=== PATIENT | male | born 1935 | race Caucasian/White ===

== ENCOUNTER 2018-09-16 21:32 | Inpatient (IN) | payer MEDICARE ==
[2018-09-16] MEDS ORDERED: ONDANSETRON 4 MG/2 ML VIAL IVP STA (22:50)
[2018-09-16] MEDS ORDERED: SODIUM CHLORIDE 0.9% 1,000 ML IV STA ×2 (22:50)
--- NOTE | 2018-09-16 22:51 | ED ---
Nausea/Vomiting/Diarrhea HPI - General Chief complaint: Nausea/Vomiting/Diarrhea Stated complaint: NVD Time Seen by Provider: 09/16/18 22:48 Source: patient, RN notes reviewed, old records reviewed Mode of arrival: wheelchair Limitations: no limitations - History of Present Illness Initial comments: This is a 3-year-old male the ER for evaluation. Patient is today with a full day of nausea vomiting and diarrhea. I'll to keep anything down throughout the day. As well as medications. Family concerned the patient is not Medications down. Patient denies any fevers no bowel pain no chest pain. MD complaint: nausea, vomiting, diarrhea -: days(s) (1) Description of Vomiting: food contents, watery Description of Diarrhea: water Associated Abdominal Pain: Yes Location: diffuse Radiation: none Severity: moderate Severity scale (1-10): 4 Quality: cramping, aching Consistency: constant Improves with: none Worsens with: eating Associated Symptoms: nausea/vomiting, weakness - Related Data Home Medications Medication Instructions Recorded Confirmed Carvedilol [Coreg] 25 mg PO BID 09/16/18 09/16/18 Dicyclomine [Bentyl] 20 mg PO QID 09/16/18 09/16/18 Furosemide [Lasix] 40 mg PO BID 09/16/18 09/16/18 Lipase/Protease/Amylase [Creon Dr 72,000 units PO ACHS 09/16/18 09/16/18 24,000 Units Capsule] Losartan [Cozaar] 25 mg PO DAILY 09/16/18 09/16/18 Multivitamins, Thera [Multivitamin 1 tab PO DAILY 09/16/18 09/16/18 (formulary)] Omeprazole [PriLOSEC] 20 mg PO DAILY 09/16/18 09/16/18 Potassium Chloride ER [K-Dur 20] 20 meq PO DAILY 09/16/18 09/16/18 Simvastatin [Zocor] 40 mg PO HS 09/16/18 09/16/18 Vit C/E/Zn/Coppr/Lutein/Zeaxan 1 cap PO BID 09/16/18 09/16/18 [Preservision Areds 2 Softgel] Warfarin [Coumadin] 2.5 mg PO MOTUWEFRSA 09/16/18 09/16/18 Warfarin [Coumadin] 2.5 mg PO SUTH 09/16/18 09/16/18 glipiZIDE XL [Glucotrol Xl] 2.5 mg PO DAILY 09/16/18 09/16/18 Previous Rx's Medication Instructions Recorded Ondansetron Odt [Zofran ODT] 4 mg PO Q8HR PRN #10 tab 09/17/18 Allergies Allergy/AdvReac Type Severity Reaction Status Date / Time CLOVER Inhibitors Allergy Unknown Verified 09/16/18 23:22 amlodipine [From Norvasc] Allergy Unknown Verified 09/16/18 23:22 cephalexin [From Keflex] Allergy Unknown Verified 09/16/18 23:22 Sulfa (Sulfonamide Allergy Unknown Verified 09/16/18 23:22 Antibiotics) valsartan [From Diovan] Allergy Unknown Verified 09/16/18 23:22 Review of Systems ROS Statement: Those systems with pertinent positive or pertinent negative responses have been documented in the HPI. ROS Other: All systems not noted in ROS Statement are negative. Past Medical History Past Medical History: Atrial Fibrillation, Diabetes Mellitus, Hyperlipidemia, Hypertension History of Any Multi-Drug Resistant Organisms: None Reported Past Surgical History: Heart Catheterization With Stent Additional Past Surgical History / Comment(s): pacemaker Past Psychological History: No Psychological Hx Reported Smoking Status: Current every day smoker Past Alcohol Use History: None Reported Past Drug Use History: None Reported General Exam Limitations: no limitations General appearance: alert, in no apparent distress Head exam: Present: atraumatic, normocephalic, normal inspection Eye exam: Present: normal appearance, PERRL, EOMI. Absent: scleral icterus, conjunctival injection, periorbital swelling ENT exam: Present: normal exam, mucous membranes moist Neck exam: Present: normal inspection. Absent: tenderness, meningismus, lymphadenopathy Respiratory exam: Present: normal lung sounds bilaterally. Absent: respiratory distress, wheezes, rales, rhonchi, stridor Cardiovascular Exam: Present: regular rate, normal rhythm, normal heart sounds. Absent: systolic murmur, diastolic murmur, rubs, gallop, clicks GI/Abdominal exam: Present: soft, normal bowel sounds. Absent: distended, tenderness, guarding, rebound, rigid Extremities exam: Present: normal inspection, full ROM, normal capillary refill. Absent: tenderness, pedal edema, joint swelling, calf tenderness Back exam: Present: normal inspection Neurological exam: Present: alert, oriented X3, CN II-XII intact Psychiatric exam: Present: normal affect, normal mood Skin exam: Present: warm, dry, intact, normal color. Absent: rash Course Vital Signs 09/16/18 22:40 Temperature 98.3 F Pulse Rate 91 Respiratory 20 Rate Blood Pressure 147/79 O2 Sat by Pulse 95 Oximetry - Reevaluation(s) Reevaluation #1: 09/16/18 23:35 Medical record reviewed Reevaluation #2: 09/17/18 00:12 symptoms resolved, no NVD here in ED Medical Decision Making - Medical Decision Making 83 male to ED w NVD< symptoms improved feeling good for discharge will returs in symptoms persist - Lab Data Result diagrams: 09/16/18 22:05 09/16/18 22:05 Lab Results 09/16/18 09/16/18 Range/Units 22:05 22:05 WBC 10.5 (3.8-10.6) k/uL RBC 5.12 (4.30-5.90) m/uL Hgb 16.4 (13.0-17.5) gm/dL Hct 47.6 (39.0-53.0) % MCV 92.8 (80.0-100.0) fL MCH 32.0 (25.0-35.0) pg MCHC 34.4 (31.0-37.0) g/dL RDW 14.9 (11.5-15.5) % Plt Count 224 (150-450) k/uL Neutrophils % 74 % Lymphocytes % 17 % Monocytes % 6 % Eosinophils % 1 % Basophils % 1 % Neutrophils # 7.8 H (1.3-7.7) k/uL Lymphocytes # 1.8 (1.0-4.8) k/uL Monocytes # 0.7 (0-1.0) k/uL Eosinophils # 0.1 (0-0.7) k/uL Basophils # 0.1 (0-0.2) k/uL Sodium 145 (137-145) mmol/L Potassium 3.1 L (3.5-5.1) mmol/L Chloride 100 (98-107) mmol/L Carbon Dioxide 33 H (22-30) mmol/L Anion Gap 12 mmol/L BUN 20 (9-20) mg/dL Creatinine 0.64 L (0.66-1.25) mg/dL Est GFR (CKD-EPI)AfAm >90 (>60 ml/min/1.73 sqM) Est GFR (CKD-EPI)NonAf >90 (>60 ml/min/1.73 sqM) Glucose 118 H (74-99) mg/dL Calcium 9.4 (8.4-10.2) mg/dL Phosphorus 3.6 (2.5-4.5) mg/dL Magnesium 2.3 (1.6-2.3) mg/dL Total Bilirubin 0.9 (0.2-1.3) mg/dL AST 50 (17-59) U/L ALT 46 (21-72) U/L Alkaline Phosphatase 128 H (38-126) U/L Total Protein 7.2 (6.3-8.2) g/dL Albumin 4.2 (3.5-5.0) g/dL Lipase 111 (23-300) U/L - Radiology Data Radiology results: report reviewed (cxr w abd series negative for acute disease), image reviewed Disposition Clinical Impression: Gastroenteritis, Dehydration Disposition: HOME SELF-CARE Condition: Good Instructions (If sedation given, give patient instructions): Acute Nausea and Vomiting (ED), Acute Diarrhea (ED) Prescriptions: Ondansetron Odt [Zofran ODT] 4 mg PO Q8HR PRN #10 tab PRN Reason: nausea/vomiting Is patient prescribed a controlled substance at d/c from ED?: No Referrals: Vic Hilario MD [Primary Care Provider] - 1-2 days
[2018-09-16 23:16] LABS: Basophils # (A) 0.1 k/uL (0-0.2); Basophils % (A) 1 %; Eosinophils # (A) 0.1 k/uL (0-0.7); Eosinophils % (A) 1 %; HCT 47.6 % (39.0-53.0); HGB 16.4 gm/dL (13.0-17.5); Lymphocytes # (A) 1.8 k/uL (1.0-4.8); Lymphocytes % (A) 17 %; MCHC 34.4 g/dL (31.0-37.0); MCV 92.8 fL (80.0-100.0); Mean Platelet Volume 7.5; Monocytes # (A) 0.7 k/uL (0-1.0); Monocytes % (A) 6 %; Neutrophils # (A) 7.8 k/uL (1.3-7.7); Neutrophils % (A) 74 %; Platelet Count 224 k/uL (150-450); RBC 5.12 m/uL (4.30-5.90); RDW 14.9 % (11.5-15.5); WBC 10.5 k/uL (3.8-10.6)
[2018-09-16 23:27] LABS: ALT 46 U/L (21-72); AST 50 U/L (17-59); Albumin 4.2 g/dL (3.5-5.0); Alkaline Phosphatase 128 U/L (38-126); Anion Gap 12 mmol/L; Blood Urea Nitrogen 20 mg/dL (9-20); Calcium 9.4 mg/dL (8.4-10.2); Carbon Dioxide 33 mmol/L (22-30); Chloride 100 mmol/L (98-107); Glucose 118 mg/dL (74-99); Lipase 111 U/L (23-300); Magnesium 2.3 mg/dL (1.6-2.3); Phosphorus 3.6 mg/dL (2.5-4.5); Potassium 3.1 mmol/L (3.5-5.1); Sodium 145 mmol/L (137-145); Total Bilirubin 0.9 mg/dL (0.2-1.3); Total Protein 7.2 g/dL (6.3-8.2)
[2018-09-16] MEDS ORDERED: POTASSIUM BICARBONATE/CIT AC 20 MEQ TABLET.EFF PO ONE (23:44)
--- NOTE | 2018-09-17 00:16 | XR ---
EXAM: XR Abdomen 2 Views With XR Chest CLINICAL HISTORY: ITS.REASON XR Reason: Pain TECHNIQUE: Frontal view of the chest, frontal view of the abdomen/pelvis and upright or decubitus view of the abdomen. 4 images. COMPARISON: No relevant prior studies available. FINDINGS: Lungs: Mild patchy opacities in the right midlung versus overlapping structures. Mild left basilar atelectasis. Pleural space: Unremarkable. No pneumothorax. Heart: Enlarged cardiac silhouette. Mediastinum: Unremarkable. Normal pulmonary vasculature. Intraperitoneal space: No free air. Gastrointestinal tract: Multiple air-fluid levels in small bowel loops which are not significantly dilated. Gas containing colonic loops appear normal caliber. Bones/joints: Unremarkable. Tubes, lines and devices: Left chest wall pacemaker. IMPRESSION: 1. Multiple air-fluid levels in small bowel loops which are not significantly dilated. May represent enteritis. 2. Mild patchy opacities in the right midlung versus overlapping structures. Mild left basilar atelectasis
[2018-09-17] MEDS ORDERED: PANTOPRAZOLE 40 MG/10 ML VIAL IVP STA (00:32)
--- NOTE | 2018-09-17 00:35 | ED ---
Medical Decision Making - Medical Decision Making 83 male upon attempted discharge did have persisted and recurrent nausea and vomiting. At this point patient will admit for IV hydration. - Lab Data Result diagrams: 09/16/18 22:05 09/16/18 22:05 Lab Results 09/16/18 09/16/18 Range/Units 22: 22:05 WBC 10.5 (3.8-10.6) k/uL RBC 5.12 (4.30-5.90) m/uL Hgb 16.4 (13.0-17.5) gm/dL Hct 47.6 (39.0-53.0) % MCV 92.8 (80.0-100.0) fL MCH 32.0 (25.0-35.0) pg MCHC 34.4 (31.0-37.0) g/dL RDW 14.9 (11.5-15.5) % Plt Count 224 (150-450) k/uL Neutrophils % 74 % Lymphocytes % 17 % Monocytes % 6 % Eosinophils % 1 % Basophils % 1 % Neutrophils # 7.8 H (1.3-7.7) k/uL Lymphocytes # 1.8 (1.0-4.8) k/uL Monocytes # 0.7 (0-1.0) k/uL Eosinophils # 0.1 (0-0.7) k/uL Basophils # 0.1 (0-0.2) k/uL Sodium 145 (137-145) mmol/L Potassium 3.1 L (3.5-5.1) mmol/L Chloride 100 (98-107) mmol/L Carbon Dioxide 33 H (22-30) mmol/L Anion Gap 12 mmol/L BUN 20 (9-20) mg/dL Creatinine 0.64 L (0.66-1.25) mg/dL Est GFR (CKD-EPI)AfAm >90 (>60 ml/min/1.73 sqM) Est GFR (CKD-EPI)NonAf >90 (>60 ml/min/1.73 sqM) Glucose 118 H (74-99) mg/dL Calcium 9.4 (8.4-10.2) mg/dL Phosphorus 3.6 (2.5-4.5) mg/dL Magnesium 2.3 (1.6-2.3) mg/dL Total Bilirubin 0.9 (0.2-1.3) mg/dL AST 50 (17-59) U/L ALT 46 (21-72) U/L Alkaline Phosphatase 128 H (38-126) U/L Total Protein 7.2 (6.3-8.2) g/dL Albumin 4.2 (3.5-5.0) g/dL Lipase 111 (23-300) U/L Disposition Clinical Impression: Gastroenteritis, Dehydration Disposition: ADMITTED IP TO THIS [facility] Condition: Good Instructions (If sedation given, give patient instructions): Acute Nausea and Vomiting (ED), Acute Diarrhea (ED) Prescriptions: Ondansetron Odt [Zofran ODT] 4 mg PO Q8HR PRN #10 tab PRN Reason: nausea/vomiting Is patient prescribed a controlled substance at d/c from ED?: No Referrals: Vic Hilario MD [Primary Care Provider] - 1-2 days
[2018-09-17] MEDS: ONDANSETRON 4 MG/2 ML VIAL IVP PRN ×2 (00:45→15:17)
[2018-09-17] MEDS ORDERED: POTASSIUM CHLORIDE 20 MEQ in WATER FOR INJECTION 1 100ML.BAG IVPB ONE (01:00)
[2018-09-17 01:49] VITALS: BMI 23.3
[2018-09-17 07:01] LABS: Glucose,Whole Blood 101 mg/dL (75-99)
[2018-09-17] MEDS: PANTOPRAZOLE 40 MG/10 ML VIAL IVP SCH (08:16)
[2018-09-17] MEDS ORDERED: Potassium Replacement Protocol 1 EACH MISC MISCELLANE PRN (09:52)
[2018-09-17 11:17] LABS: Glucose,Whole Blood 88 mg/dL (75-99)
[2018-09-17] MEDS: POTASSIUM CHLORIDE 10 MEQ in WATER FOR INJECTION 1 100ML.BAG IVPB SCH ×4 (12:26→22:08)
--- NOTE | 2018-09-17 15:21 | XR ---
EXAMINATION TYPE: XR chest 1V portable DATE OF EXAM: 09/17/2018 COMPARISON: Chest x-ray from acute abdominal series 09/17/2018 INDICATION: Short of breath chest pain TECHNIQUE: Single frontal view of the chest is obtained. FINDINGS: The heart size is mildly prominent. The pulmonary vasculature is normal. Mild retrocardiac infiltrate could be considered. This appears more opacified than on the comparison chest x-ray earlier in the day. Follow-up can be performed. Note is made of a pacemaker over the left chest. IMPRESSION: 1. Suggestion of a retrocardiac infiltrate. Clinical correlation is recommended. Follow-up can be per formed as clinically indicated.
[2018-09-17] MEDS: LOSARTAN 25 MG TAB PO SCH (15:35)
[2018-09-17] MEDS: DICYCLOMINE 20 MG TAB PO SCH ×3 (15:35→20:27)
[2018-09-17] MEDS: 0.9% NACL WITH KCL 40 MEQ/L 1,000 ML IV SCH (16:26)
[2018-09-17] MEDS: CARVEDILOL 12.5 MG TAB PO SCH (16:29)
[2018-09-17] MEDS: LIPASE 5,000/PROTEASE 17,000/AMYLASE 24,000 PO SCH ×3 (16:30→20:33)
[2018-09-17] MEDS ORDERED: IPRATROPIUM-ALBUTEROL 3 ML NEB INHALATION PRN (17:08)
[2018-09-17 17:42] LABS: Glucose,Whole Blood 112 mg/dL (75-99)
[2018-09-17] MEDS: LEVOFLOXACIN 500MG-D5W PMX 500 MG in DEXTROSE/WATER 1 100ML.BAG IVPB SCH (18:05)
[2018-09-17] MEDS: IPRATROPIUM-ALBUTEROL 3 ML NEB INHALATION SCH (19:47)
[2018-09-17 20:01] LABS: Glucose,Whole Blood 130 mg/dL (75-99)
[2018-09-17] MEDS: FUROSEMIDE 40 MG TAB PO SCH (20:27)
[2018-09-17] MEDS: HEPARIN SODIUM,PORCINE 5,000 UNIT/ML 1 ML VIAL SQ SCH (20:28)
--- NOTE | 2018-09-17 20:53 | HP ---
HISTORY AND PHYSICAL DATE OF SERVICE: 09/17/2018 CHIEF COMPLAINT: Nausea and diarrhea. HISTORY OF PRESENT ILLNESS: This 83-year-old gentleman with a past medical history of multiple medical problems including atrial fibrillation, CHF, CVA, TIA, diabetes and hypertension, liver disease, hepatitis, in the outpatient setting was complaining of diarrhea. The patient also had nausea. Patient unable to keep anything down. The family is concerned and the patient taken to [facility] and admitted for further evaluation and treatment. Patient also had flu-like symptoms and also significant cough also according to the family. There is no history of fever, rigors or chills. No history of headache, loss of consciousness, seizures. A chest x-ray which was done today and reviewed by me showed possible retrocardiac infiltrate and the patient being closely monitored. There is no history of fever, rigors or chills. PAST MEDICAL HISTORY: History of atrial fibrillation, history of CHF, CVA, TIA, diabetes type 2, hypertension, hyperlipidemia, liver disease, hepatitis. MEDICATIONS: Prior to admission home medications are: 1. Coumadin 5 mg, Wednesday, Wednesday, Wednesday, Wednesday, Wednesday. 2. Glucotrol 2.5 mg daily. 3. Coumadin 2.5 mg Wednesday, . 4. Vitamin B, E, zinc, copper lutein 1 capsule p.o. b.i.d. 5. Zocor 40 mg q.h.s. 6. K-Dur 20 mEq p.o. daily. 7. Multivitamins one p.o. daily. 8. Cozaar 25 mg p.o. daily. 9. Creon 72,000 a.c. and q.h.s. 10.Lasix 40 mg p.o. b.i.d. 11.Bentyl 20 mg p.o. q.i.d. 12.Coreg 25 mg p.o. b.i.d. 13.Zofran 4 mg q.8 p.r.n. ALLERGIES: CLOVER INHIBITORS, NORVASC, Diovan. FAMILY HISTORY: History of cancer, diabetes, colon cancer. SOCIAL HISTORY: History of smoking. No history of alcohol intake. REVIEW OF SYSTEMS: ENT: Diminished hearing and diminished vision. CARDIOVASCULAR: No angina or palpitations. RESPIRATORY: As mentioned earlier. GASTROINTESTINAL: As mentioned earlier. no dysuria. CENTRAL NERVOUS SYSTEM: As mentioned earlier. ALLERGY/IMMUNOLOGY: No asthma or hayfever. MUSCULOSKELETAL: As mentioned earlier. HEMATOLOGY/ONCOLOGY: No history of anemia. ENDOCRINE: Diabetes mellitus. CONSTITUTIONAL: As mentioned earlier. Dermatology: Negative. Rheumatology: Negative. Psychiatry: As mentioned earlier. PHYSICAL EXAM: Patient is alert, oriented x3. Pulse 63. Blood pressure 130/60, respirations 16. Temperature 98.4, pulse ox 94% on room air. HEENT: Conjunctivae normal. Oral mucosa moist. NECK is no jugular venous distention. No carotid bruit. No lymph node enlargement. Cardiovascular: S1, S2 muffled. RESPIRATORY: Breath sounds diminished in the bases. A few scattered rhonchi and crackles. ABDOMEN: Soft, nontender. Mild diffuse discomfort. No guarding. No rigidity. No mass palpable. LEGS: No edema. No swelling. CENTRAL NERVOUS SYSTEM: Higher functions as mentioned earlier, moves all four extremities, no focal deficits. Lymphatics: No lymph nodes palpable in the neck, axillae or groin. SKIN: No ulcer, rash or bleeding. JOINTS: No active deforming arthropathy. LAB STUDIES: WBC 11.1, hemoglobin 16.4. Sodium 145, potassium 3.1. Influenza negative. ASSESSMENT: 1. Nausea and diarrhea possible acute viral syndrome. 2. Hypokalemia. 3. Possibly acute left lower lobe pneumonia. 4. History of atrial fibrillation. 5. History of congestive heart failure. 6. History of cerebrovascular accident/ transient ischemic attack. 7. Diabetes mellitus. 8. Hypertension. 9. Hyperlipidemia. 10.Chronic liver disease. 11.History of diabetes. 12.Hepatitis. 13.History of pancreatic problems. 14.History of coronary artery disease/stent. 15.History of nicotine dependence, continued ongoing. RECOMMENDATIONS AND DISCUSSION: In this 83-year-old gentleman who presents with multiple complex medical issues, we will monitor the patient closely, continue the current medications, management and symptomatic treatment. Otherwise, conservative line of management. Otherwise, I would also recommend supplement potassium. IV fluids. Bronchodilators. Empiric antibiotics. Cultures. I would also recommend influenza swab. Guarded prognosis because of multiple complex medical issues. Further recommendations to follow. See orders for details. Discussed with staff. Repeat labs. Discussed with family at length. Further recommendations to follow. A copy of dictation being forwarded to Dr. Hilario who is the primary care physician. This. Sulaiman saw. MMJAYLENEL / IJN: [id number] / MTDTara
[2018-09-18] MEDS: POTASSIUM CHLORIDE 10 MEQ in WATER FOR INJECTION 1 100ML.BAG IVPB SCH ×3 (00:19→04:46)
[2018-09-18 01:12] LABS: Appearance,Urine Cloudy (Clear); Bacteria,Urine Many /hpf; Bilirubin,Urine Negative (Negative); Blood,Urine Trace (Negative); Color,Urine Yellow; Glucose,Urine (UA) Negative (Negative); Hyaline Casts,Urine 6 /lpf (0-2); Ketones,Urine Negative (Negative); Leukocyte Esterase,Urine Large (Negative); Mucus,Urine Rare /hpf; Nitrite,Urine Positive (Negative); Protein,Urine 1+ (Negative); RBC,Urine 4 /hpf (0-5); Squamous Epithelial Cell,Urine <1 /hpf (0-4); Urobilinogen,Urine <2.0 mg/dL (<2.0); WBC,Urine >182 /hpf (0-5)
[2018-09-18] MEDS: 0.9% NACL WITH KCL 40 MEQ/L 1,000 ML IV SCH ×2 (05:57→17:33)
[2018-09-18 07:05] LABS: Glucose,Whole Blood 82 mg/dL (75-99)
[2018-09-18] MEDS: IPRATROPIUM-ALBUTEROL 3 ML NEB INHALATION SCH ×3 (08:11→19:44)
[2018-09-18] MEDS: FUROSEMIDE 40 MG TAB PO SCH ×2 (08:23→21:44)
[2018-09-18] MEDS: CARVEDILOL 12.5 MG TAB PO SCH ×2 (08:23→17:32)
[2018-09-18] MEDS: HEPARIN SODIUM,PORCINE 5,000 UNIT/ML 1 ML VIAL SQ SCH (08:23)
[2018-09-18] MEDS: LOSARTAN 25 MG TAB PO SCH (08:23)
[2018-09-18] MEDS: LIPASE 5,000/PROTEASE 17,000/AMYLASE 24,000 PO SCH ×4 (08:24→21:44)
[2018-09-18] MEDS: PANTOPRAZOLE 40 MG/10 ML VIAL IVP SCH (08:24)
[2018-09-18 09:59] LABS: Basophils % (A) 1 %; Eosinophils # (A) 0.2 k/uL (0-0.7); Eosinophils % (A) 3 %; HCT 36.5 % (39.0-53.0); Lymphocytes # (A) 1.2 k/uL (1.0-4.8); Lymphocytes % (A) 20 %; MCH 32.2 pg (25.0-35.0); MCHC 34.6 g/dL (31.0-37.0); MCV 93.1 fL (80.0-100.0); Mean Platelet Volume 7.7; Monocytes # (A) 0.4 k/uL (0-1.0); Monocytes % (A) 6 %; Neutrophils # (A) 4.2 k/uL (1.3-7.7); Neutrophils % (A) 69 %; Platelet Count 173 k/uL (150-450); RBC 3.92 m/uL (4.30-5.90); RDW 14.1 % (11.5-15.5); WBC 6.1 k/uL (3.8-10.6)
[2018-09-18 10:21] LABS: INR 2.2 (<1.2); Prothrombin Time 21.3 sec (9.0-12.0)
[2018-09-18 10:24] LABS: Anion Gap 5 mmol/L; Blood Urea Nitrogen 16 mg/dL (9-20); Calcium 8.4 mg/dL (8.4-10.2); Carbon Dioxide 30 mmol/L (22-30); Chloride 104 mmol/L (98-107); Glucose 139 mg/dL (74-99); Potassium 3.7 mmol/L (3.5-5.1); Sodium 139 mmol/L (137-145)
[2018-09-18 10:56] LABS: HGB 12.6 gm/dL (13.0-17.5)
[2018-09-18 11:08] LABS: Glucose,Whole Blood 109 mg/dL (75-99)
[2018-09-18] MEDS: INSULIN ASPART (NovoLOG) 100 UNIT/ML VIAL SQ SCH ×3 (12:48→21:48)
[2018-09-18] MEDS: DICYCLOMINE 20 MG TAB PO SCH ×3 (13:01→21:45)
[2018-09-18] MEDS: LEVOFLOXACIN 500MG-D5W PMX 500 MG in DEXTROSE/WATER 1 100ML.BAG IVPB SCH (17:35)
[2018-09-18 17:39] LABS: Glucose,Whole Blood 113 mg/dL (75-99)
[2018-09-18] MEDS ORDERED: WARFARIN 2.5 MG TAB PO SCH (18:00)
[2018-09-18 20:05] LABS: Glucose,Whole Blood 157 mg/dL (75-99)
--- NOTE | 2018-09-18 20:38 | PN ---
PROGRESS NOTE DATE OF SERVICE: 09/18/2018 This 83-year-old gentleman admitted with nausea and diarrhea had features of acute UTI and sepsis. The patient had hypokalemia. Patient also had a possible acute left lower lobe pneumonia. Patient on broad spectrum IV antibiotics. PAST MEDICAL HISTORY: Reviewed. REVIEW OF SYSTEMS: CARDIOVASCULAR: No angina or palpitations. RESPIRATION: As mentioned earlier. GI as mentioned earlier. : As mentioned earlier. CENTRAL NERVOUS SYSTEM: No focal deficits. CURRENT MEDICATIONS: Reviewed and include: 1. DuoNeb q.i.d. and p.r.n. 2. Zenpep q.h.s. 3. Coreg 25 mg p.o. b.i.d. 4. Bentyl 20 mg p.o. q.i.d. 5. Lasix 40 mg b.i.d. 6. NovoLog. 7. Levaquin 500 mg IV daily. 8. K-Dur. 9. Zofran. 10.Protonix 40 mg IV. 11.Coumadin. 12.Potassium chloride. PHYSICAL EXAM: Patient is alert, oriented x3. Pulse is 74, blood pressure 150/66, respirations 16, temp 97.6, pulse ox 94% on room air. HEENT: Conjunctivae normal. NECK: No jugular venous distention. CARDIOVASCULAR: S1, S2 muffled. RESPIRATORY: Breath sounds diminished in the bases. Bilateral scattered rhonchi and crackles. ABDOMEN: Soft, nontender. No mass palpable. Legs: No edema. No swelling. NERVOUS SYSTEM: Higher functions as mentioned earlier. Moves all four limbs. No focal deficits. Lymphatics: No lymph nodes palpable in the neck, axillae or groin. SKIN: No ulcer, rash or bleeding. JOINTS: No active deforming arthropathy. LABS: At this time shows WBC 6.7, hemoglobin 12.6, and INR is 2.2. Sodium is 139, and glucose 139 also. Cultures are pending. ASSESSMENT: 1. Nausea, diarrhea possible acute viral syndrome, possible sepsis. 2. Acute urinary tract infection present on admission. 3. Left lower pneumonia possibly community-acquired. 4. Hypokalemia. 5. History atrial fibrillation, chronic persistent. 6. History of congestive heart failure. 7. History of cerebrovascular accident, transient ischemic attack. 8. Diabetes type 2. 9. Hypertension. 10.Hyperlipidemia. 11.Chronic liver disease. 12.History of diabetes. 13.History of hepatitis. 14.History of pancreatic pancreatitis. 15.History of coronary artery disease, stent. 16.History of nicotine dependence, continued ongoing. RECOMMENDATIONS AND DISCUSSION: Recommend to continue current medications, symptomatic treatment. Continue broad spectrum IV antibiotics. Continue the rest of medications. Follow the cultures. Otherwise, resume the home medication. Monitor PT, INR closely. Prognosis guarded because of multiple complex medical issues. Further recommendations to follow. MMODL / IJN: [id number] /
[2018-09-19 07:07] LABS: Glucose,Whole Blood 91 mg/dL (75-99)
[2018-09-19] MEDS: IPRATROPIUM-ALBUTEROL 3 ML NEB INHALATION SCH ×2 (08:16→12:52)
[2018-09-19 08:17] LABS: Basophils % (A) 1 %; Eosinophils # (A) 0.2 k/uL (0-0.7); Eosinophils % (A) 3 %; HCT 41.5 % (39.0-53.0); HGB 13.9 gm/dL (13.0-17.5); Lymphocytes # (A) 1.4 k/uL (1.0-4.8); Lymphocytes % (A) 23 %; MCH 31.3 pg (25.0-35.0); MCHC 33.6 g/dL (31.0-37.0); MCV 93.2 fL (80.0-100.0); Mean Platelet Volume 7.3; Monocytes # (A) 0.4 k/uL (0-1.0); Monocytes % (A) 7 %; Neutrophils % (A) 66 %; Platelet Count 189 k/uL (150-450); RBC 4.45 m/uL (4.30-5.90); RDW 13.3 % (11.5-15.5); WBC 6.1 k/uL (3.8-10.6)
[2018-09-19 08:19] LABS: INR 2.1 (<1.2); Prothrombin Time 20.4 sec (9.0-12.0)
[2018-09-19] MEDS: INSULIN ASPART (NovoLOG) 100 UNIT/ML VIAL SQ SCH ×2 (08:22→12:53)
[2018-09-19 08:27] LABS: Anion Gap 6 mmol/L; Blood Urea Nitrogen 10 mg/dL (9-20); Calcium 8.8 mg/dL (8.4-10.2); Carbon Dioxide 32 mmol/L (22-30); Chloride 102 mmol/L (98-107); Glucose 86 mg/dL (74-99); Potassium 3.3 mmol/L (3.5-5.1); Sodium 140 mmol/L (137-145)
[2018-09-19] MEDS: CARVEDILOL 12.5 MG TAB PO SCH (09:41)
[2018-09-19] MEDS: DICYCLOMINE 20 MG TAB PO SCH ×2 (09:41→12:57)
[2018-09-19] MEDS: LIPASE 5,000/PROTEASE 17,000/AMYLASE 24,000 PO SCH ×2 (09:41→12:57)
[2018-09-19] MEDS: LOSARTAN 25 MG TAB PO SCH (09:41)
[2018-09-19] MEDS: FUROSEMIDE 40 MG TAB PO SCH (09:41)
[2018-09-19] MEDS: PANTOPRAZOLE 40 MG/10 ML VIAL IVP SCH (09:42)
[2018-09-19 11:18] LABS: Glucose,Whole Blood 111 mg/dL (75-99)
[2018-09-19 11:47] VITALS: BP 161/78; PULSE 82; RESP 17; TEMP 97.7
[2018-09-19] MEDS ORDERED: POTASSIUM CHLORIDE ER 20 MEQ TAB.ER PO STA (12:36)
[2018-09-19] MEDS ORDERED: WARFARIN 5 MG TAB PO SCH (18:00)
[2018-09-19] MEDS ORDERED: LEVOFLOXACIN 500 MG TAB PO SCH (18:00)
--- NOTE | 2018-09-20 07:29 | DS ---
DISCHARGE SUMMARY DATE OF SERVICE: 09/19/2018 FINAL DIAGNOSES: 1. Nausea, diarrhea possible acute viral syndrome with possible sepsis, present on admission, improved. 2. Acute urinary tract infection, present on admission, improved. 3. Left lower lobe pneumonia, possibly community acquired, improved. 4. Hypokalemia. 5. History atrial fibrillation, chronic persistent. 6. History of congestive heart failure. 7. History of cerebrovascular accident, transient ischemic attack. 8. Diabetes mellitus type 2. 9. Hypertension. 10.Hyperlipidemia. 11.Chronic liver disease. 12.History of diabetes mellitus. 13.History of hepatitis. 14.History of chronic pancreatitis. 15.History of coronary artery disease, stent. 16.History of nicotine dependence, continued ongoing. DISCHARGE DISPOSITION: The patient will be discharged in stable condition with guarded prognosis. Total time taken 35 minutes. HISTORY OF PRESENT ILLNESS: This 83-year-old gentleman with past medical history of multiple medical problems was admitted with multiple symptomatology, nausea, vomiting, diarrhea as well as respiratory symptoms. Patient was treated empirically with antibiotics. Patient improved significantly. The flu was negative. Sepsis was suspected clinically and cultures are negative at this time. The white count was 10.5, hemoglobin 16.4, and the patient was treated symptomatically. Patient improved significantly. On exam, vitals are stable. CARDIOVASCULAR: S1, S2 muffled. ABDOMEN: Soft. NERVOUS SYSTEM: No focal deficits. UA shows significant UTI. Influenza is negative. C difficile also negative. DISCHARGE ADVICE: 1. Diet is cardiac. 2. Activity limited until followup. Otherwise discharge recommendations will be follow up with Dr. Vic Hilario in 2 to 3. Medications are as follows: 1. Bentyl 20 mg q.i.d. p.r.n. 2. Coreg 25 mg p.o. b.i.d. 3. Coumadin 2.5 mg p.o. Wednesday, and 5 mg on Wednesday, Wednesday, Wednesday, Wednesday. 4. Cozaar 25 mg p.o. daily. 5. Creon 72,000 q.a.c. and at bedtime. 6. Glucotrol XL 2.5 mg daily. 7. K-Dur 20 mEq p.o. daily. 8. Lasix 40 mg p.o. b.i.d. 9. Multivitamins one p.o. daily. 10.PreserVision one capsule p.o. b.i.d. 11.Zocor 40 mg q.h.s. 12.Levaquin 500 mg p.o. daily. 13.ProAir HFA 2 puffs q.6 p.r.n. 14.Zofran 4 mg p.o. q.8 p.r.n. Follow up with Dr. Vic Hilario as recommended. Once again, the patient will be discharged in stable condition with guarded prognosis. MMODL / IJN: [id number] /
== END 2018-09-19 14:25 | disposition home or self-care (01) | DRG 871 ==
LOC: EC 21:32 → 3NMEDONC 09-17 00:34 → OBSVTOIN 09-18 15:02
PROVIDERS: ADMIT Hospitalist; ATTEND Hospitalist
DX: A41.9 Sepsis, unspecified organism (principal); J18.1 Lobar pneumonia, unspecified organism; N39.0 Urinary tract infection, site not specified; I48.1 Persistent atrial fibrillation; I11.0 Hypertensive heart disease with heart failure; I50.9 Heart failure, unspecified; E86.0 Dehydration; K75.9 Inflammatory liver disease, unspecified; E11.9 Type 2 diabetes mellitus without complications; B34.9 Viral infection, unspecified; E87.6 Hypokalemia; E78.5 Hyperlipidemia, unspecified; I25.10 Atherosclerotic heart disease of native coronary artery without angina pectoris; F17.210 Nicotine dependence, cigarettes, uncomplicated; Z79.01 Long term (current) use of anticoagulants; Z79.84 Long term (current) use of oral hypoglycemic drugs; Z79.899 Other long term (current) drug therapy; Z95.5 Presence of coronary angioplasty implant and graft; Z86.73 Personal history of transient ischemic attack (TIA), and cerebral infarction without residual deficits; Z87.19 Personal history of other diseases of the digestive system; Z88.1 Allergy status to other antibiotic agents; Z88.2 Allergy status to sulfonamides; Z88.8 Allergy status to other drugs, medicaments and biological substances; Z80.0 Family history of malignant neoplasm of digestive organs; Z83.3 Family history of diabetes mellitus
CPT/HCPCS: 36415; 71045; 74022; 80048; 80053; 81001; 83690; 83735; 83880; 84100; 84132; 84484; 85025; 85610; 87040; 87086; 87324; 87502; 94640; 96361; 96374; 96375; 96376; 99285

== ENCOUNTER → 2019-05-05 | Day surgery (SDC) | payer MEDICARE ==
[~2019-05-05] MED LIST: ALPRAZolam 0.25 MG TAB PO STA; HYDROmorphone 1 MG/ML 1 ML SYRINGE IVP STA
[2019-05-05 09:08] LABS: Mean Platelet Volume 7.1; Platelet Count 234 k/uL (150-450)
[2019-05-05 09:16] LABS: Prothrombin Time 10.6 sec (9.0-12.0)
[2019-05-05 09:22] VITALS: TEMP 97.6
[2019-05-05 09:34] LABS: Glucose,Whole Blood 89 mg/dL (75-99)
[2019-05-05 10:19] VITALS: RESP 16
--- NOTE | 2019-05-05 12:34 | US ---
EXAMINATION TYPE: US biopsy liver DATE OF EXAM: 05/05/2019 HISTORY: Multiple liver masses. FINDINGS: Maximal barrier technique was utilized. The skin overlying a suitable path to the patient' s mass in the left lobe was localized with ultrasound and the overlying skin prepped and draped. Ult rasound was utilized with sterile technique. Lidocaine was used for local anesthesia. A skin neftali w as made with a scalpel. An 18-gauge needle was advanced under direct ultrasound guidance and core sp ecimen obtained of the mass. Specimen submitted in formalin to Pathology. Following the procedure, hemostasis achieved and the patient is discharged in stable condition without complication. IMPRESSION:STATUS POST ULTRASOUND GUIDED CORE BIOPSY OF left lobe liver MASS, PATHOLOGY IS PENDING. THIS PROCEDURE IS PERFORMED BY THE UNDERSIGNED.
[2019-05-05 17:49] VITALS: BP 129/75; PULSE 83
== END ==
LOC: RADPROMAIN 08:24
PROVIDERS: ATTEND Internal Medicine Hematology & Oncology
DX: C7A.8 Other malignant neuroendocrine tumors (principal); E11.9 Type 2 diabetes mellitus without complications; Z79.01 Long term (current) use of anticoagulants; Z88.1 Allergy status to other antibiotic agents; Z88.2 Allergy status to sulfonamides; Z88.8 Allergy status to other drugs, medicaments and biological substances
CPT/HCPCS: 85049; 85610; 88342; 88307; 88341; 36415; 47000; 76942; J1170

== ENCOUNTER 2019-05-09 19:21 | Inpatient (IN) | payer MEDICARE ==
[2019-05-09] MEDS ORDERED: SODIUM CHLORIDE 0.9% 1,000 ML IV STA (20:22)
[2019-05-09 20:58] LABS: Basophils # (A) 0.2 k/uL (0-0.2); Basophils % (A) 1 %; Eosinophils % (A) 0 %; HCT 41.7 % (39.0-53.0); Lymphocytes # (A) 1.6 k/uL (1.0-4.8); Lymphocytes % (A) 12 %; MCH 33.5 pg (25.0-35.0); MCHC 33.6 g/dL (31.0-37.0); MCV 99.7 fL (80.0-100.0); Mean Platelet Volume 6.7; Monocytes # (A) 0.9 k/uL (0-1.0); Monocytes % (A) 6 %; Neutrophils # (A) 11.1 k/uL (1.3-7.7); Neutrophils % (A) 79 %; Platelet Count 308 k/uL (150-450); RBC 4.18 m/uL (4.30-5.90); RDW 13.8 % (11.5-15.5)
[2019-05-09 21:02] LABS: Albumin 3.3 g/dL (3.5-5.0); Calcium 7.9 mg/dL (8.4-10.2); Potassium 3.1 mmol/L (3.5-5.1)
[2019-05-09 21:03] LABS: Ammonia <9 umol/L (<30)
[2019-05-09 21:04] LABS: INR 1.1 (<1.2)
[2019-05-09 21:05] LABS: Partial Thromboplastin Time 26.3 sec (22.0-30.0); Prothrombin Time 11.2 sec (9.0-12.0)
--- NOTE | 2019-05-09 21:11 | XR ---
EXAMINATION TYPE: XR KUB DATE OF EXAM: 05/09/2019 COMPARISON: 09/17/2018 HISTORY: Weakness and nausea and vomiting TECHNIQUE: 2 views supine FINDINGS: There is no sign of intestinal obstruction or pneumoperitoneum. Fecal pattern is normal. Colleen ng bases are clear. There is mild thoracolumbar levoscoliosis. There is multilevel spondylotic change s in the lumbar spine. There is no sign of a mass. There are some calcifications over both kidneys. S ome of these could be vascular or related to renal calculi. IMPRESSION: Nonacute abdomen. There is cl earing of the intestinal ileus compared to old exam.
[2019-05-09 21:22] LABS: Lactic Acid, Venous 2.6 mmol/L (0.7-2.0)
--- NOTE | 2019-05-09 21:47 | ED ---
Weakness HPI - General Chief complaint: Weakness Stated complaint: unable to eat, Nausea, vomiting Time Seen by Provider: 05/09/19 19:46 Source: patient Mode of arrival: wheelchair Limitations: no limitations - History of Present Illness Initial comments: 83-year-old male patient presents to emergency department for evaluation of nausea, vomiting, and progressive weakness since Wednesday. The patient underwent liver biopsy Wednesday with Dr. Jasso. Family member state that he has been unable to keep down any food or fluids for the last 3 days. Vomiting did cease yesterday however he was not eating or drinking. They deny any fever or chills. Patient denies any increase in abdominal pain. States bowel movements have been normal. Denies any airam-colored right stools. Denies diarrhea. They deny any hematemesis. His emesis was nonbloody and nonbilious. He denies any chest pain, shortness of breath, dizziness, or focal weakness. Patient denies any recent rash, back pain, numbness, tingling, headache, visual changes, or any other complaints. - Related Data Home Medications Medication Instructions Recorded Confirmed Carvedilol [Coreg] 25 mg PO BID 09/16/18 05/09/19 Dicyclomine [Bentyl] 20 mg PO QID 09/16/18 05/09/19 Furosemide [Lasix] 40 mg PO BID 09/16/18 05/09/19 Lipase/Protease/Amylase [Creon Dr 3 cap PO ACHS 09/16/18 05/09/19 24,000 Units Capsule] Losartan [Cozaar] 25 mg PO DAILY 09/16/18 05/09/19 Multivitamins, Thera [Multivitamin 1 tab PO DAILY 09/16/18 05/09/19 (formulary)] Potassium Chloride ER [K-Dur 20] 20 meq PO DAILY 09/16/18 05/09/19 Simvastatin [Zocor] 40 mg PO HS 09/16/18 05/09/19 Vit C/E/Zn/Coppr/Lutein/Zeaxan 1 cap PO BID 09/16/18 05/09/19 [Preservision Areds 2 Softgel] glipiZIDE XL [Glucotrol XL] 2.5 mg PO DAILY 09/16/18 05/09/19 Nitroglycerin 0.4 mg SL Q5M PRN 05/01/19 05/09/19 Omeprazole 20 mg PO DAILY 05/01/19 05/09/19 Ondansetron HCl [Zofran] 8 mg PO Q8H PRN 05/09/19 05/09/19 Allergies Allergy/AdvReac Type Severity Reaction Status Date / Time CLOVER Inhibitors Allergy Anaphylaxis Verified 05/09/19 20:43 amlodipine [From Norvasc] Allergy Rash/Hives Verified 05/09/19 20:43 cephalexin [From Keflex] Allergy Unknown Verified 05/09/19 20:43 Sulfa (Sulfonamide Allergy Unknown Verified 05/09/19 20:43 Antibiotics) valsartan [From Diovan] Allergy Anaphylaxis Verified 05/09/19 20:43 Review of Systems ROS Statement: Those systems with pertinent positive or pertinent negative responses have been documented in the HPI. ROS Other: All systems not noted in ROS Statement are negative. 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, skin itching History of Any Multi-Drug Resistant Organisms: None Reported Past Surgical History: Heart Catheterization With Stent, Orthopedic Surgery Additional Past Surgical History / Comment(s): pacemaker 2003, replaced pacemaker in 2010, liver biospy, left kneecap removed in , one testicle removed Past Anesthesia/Blood Transfusion Reactions: No Reported Reaction Date of Last Stent Placement:: 2014 Past Psychological History: No Psychological Hx Reported Smoking Status: Current every day smoker Past Alcohol Use History: None Reported Past Drug Use History: None Reported - Past Family History Mother Family Medical History: Cancer, Diabetes Mellitus Additional Family Medical History / Comment(s): colon cancer Father Family Medical History: Diabetes Mellitus Additional Family Medical History / Comment(s): emphysema General Exam Limitations: no limitations General appearance: alert, in no apparent distress, other (This is a well- developed, well-nourished elderly male patient in no acute distress. Vital signs upon presentation are temperature 98.3F, pulse 92, respirations 22, blood pressure 118/60, pulse ox 88% on room air.) Eye exam: Present: normal appearance, PERRL, EOMI. Absent: scleral icterus, conjunctival injection, periorbital swelling ENT exam: Present: normal exam. Absent: mucous membranes moist (Dry mucous membrane) Respiratory exam: Present: normal lung sounds bilaterally. Absent: respiratory distress, wheezes, rales, rhonchi, stridor Cardiovascular Exam: Present: regular rate, irregular rhythm, normal heart sounds. Absent: systolic murmur, diastolic murmur, rubs, gallop, clicks GI/Abdominal exam: Present: soft, tenderness (Right upper quadrant), normal bowel sounds. Absent: distended, guarding, rebound, rigid Neurological exam: Present: alert, oriented X3, CN II-XII intact, other (Strength in all 4 extremities is 3/5) Psychiatric exam: Present: normal affect, normal mood Skin exam: Present: warm, dry, intact, normal color. Absent: rash Course Vital Signs 05/09/19 05/09/19 05/09/19 19:26 20:48 21:35 Temperature 98.3 F Pulse Rate 92 85 84 Respiratory 22 18 18 Rate Blood Pressure 118/60 123/71 121/74 O2 Sat by Pulse 88 L 90 L 96 Oximetry EKG Findings - EKG Comments: EKG Findings:: EKG obtained at 194 shows atrial fibrillation with a prolonged QT interval. Ventricular rate is 83, QRS duration 98, QT 4:30, QTC 505. Some evidence of ST depression in V5 and V6. Medical Decision Making - Medical Decision Making 83-year-old male patient presents to the emergency department today for evaluation of weakness, vomiting after having a liver biopsy on Wednesday. Physical examination reveals mild right upper quadrant tenderness. Labs reviewed and did reveal elevated white blood cell count of 14,000. Acute kidney injury elevated BUN and creatinine. Potassium 3.1. CO2 level LI. Patient was given 1 L bolus. We did start IV fluids at 100 mL per hour. He'll be admitted to the hospital for further evaluation and repeat labs in the morning. - Lab Data Result diagrams: 05/09/19 20:33 05/09/19 20:33 Lab Results 05/09/19 05/09/19 05/09/19 Range/Units 20:33 20:33 20:33 WBC 14.0 H (3.8-10.6) k/uL RBC 4.18 L (4.30-5.90) m/uL Hgb 14.0 (13.0-17.5) gm/dL Hct 41.7 (39.0-53.0) % MCV 99.7 (80.0-100.0) fL MCH 33.5 (25.0-35.0) pg MCHC 33.6 (31.0-37.0) g/dL RDW 13.8 (11.5-15.5) % Plt Count 308 (150-450) k/uL Neutrophils % 79 % Lymphocytes % 12 % Monocytes % 6 % Eosinophils % 0 % Basophils % 1 % Neutrophils # 11.1 H (1.3-7.7) k/uL Lymphocytes # 1.6 (1.0-4.8) k/uL Monocytes # 0.9 (0-1.0) k/uL Eosinophils # 0.0 (0-0.7) k/uL Basophils # 0.2 (0-0.2) k/uL PT (9.0-12.0) sec INR (<1.2) APTT (22.0-30.0) sec Sodium 143 (137-145) mmol/L Potassium 3.1 L (3.5-5.1) mmol/L Chloride 81 L (98-107) mmol/L Carbon Dioxide 51 H* (22-30) mmol/L Anion Gap 11 mmol/L BUN 56 H (9-20) mg/dL Creatinine 2.04 H (0.66-1.25) mg/dL Est GFR (CKD-EPI)AfAm 34 (>60 ml/min/1.73 sqM) Est GFR (CKD-EPI)NonAf 29 (>60 ml/min/1.73 sqM) Glucose 144 H (74-99) mg/dL Plasma Lactic Acid Ken 2.6 H* (0.7-2.0) mmol/L Calcium 7.9 L (8.4-10.2) mg/dL Total Bilirubin 1.0 (0.2-1.3) mg/dL AST 107 H (17-59) U/L ALT 106 H (21-72) U/L Alkaline Phosphatase 541 H (38-126) U/L Ammonia <9 (<30) umol/L Troponin I (0.000-0.034) ng/mL Total Protein 6.0 L (6.3-8.2) g/dL Albumin 3.3 L (3.5-5.0) g/dL 05/09/19 05/09/19 Range/Units 20:33 20:33 WBC (3.8-10.6) k/uL RBC (4.30-5.90) m/uL Hgb (13.0-17.5) gm/dL Hct (39.0-53.0) % MCV (80.0-100.0) fL MCH (25.0-35.0) pg MCHC (31.0-37.0) g/dL RDW (11.5-15.5) % Plt Count (150-450) k/uL Neutrophils % % Lymphocytes % % Monocytes % % Eosinophils % % Basophils % % Neutrophils # (1.3-7.7) k/uL Lymphocytes # (1.0-4.8) k/uL Monocytes # (0-1.0) k/uL Eosinophils # (0-0.7) k/uL Basophils # (0-0.2) k/uL PT 11.2 (9.0-12.0) sec INR 1.1 (<1.2) APTT 26.3 (22.0-30.0) sec Sodium (137-145) mmol/L Potassium (3.5-5.1) mmol/L Chloride (98-107) mmol/L Carbon Dioxide (22-30) mmol/L Anion Gap mmol/L BUN (9-20) mg/dL Creatinine (0.66-1.25) mg/dL Est GFR (CKD-EPI)AfAm (>60 ml/min/1.73 sqM) Est GFR (CKD-EPI)NonAf (>60 ml/min/1.73 sqM) Glucose (74-99) mg/dL Plasma Lactic Acid Ken (0.7-2.0) mmol/L Calcium (8.4-10.2) mg/dL Total Bilirubin (0.2-1.3) mg/dL AST (17-59) U/L ALT (21-72) U/L Alkaline Phosphatase (38-126) U/L Ammonia (<30) umol/L Troponin I 0.048 H* (0.000-0.034) ng/mL Total Protein (6.3-8.2) g/dL Albumin (3.5-5.0) g/dL - Radiology Data Radiology results: report reviewed, image reviewed Two-view x-ray of the chest is obtained. Report was reviewed in its entirety. Impression by Dr. Crocker shows mild left lower lobe pneumonia. No heart failure. Chest is probably not changed compared to last exam. Stable c ardiomegaly. KUB x-ray is obtained. Report was reviewed in its entirety. Impression by Dr. Thomson shows nonacute abdomen. There is clearing of the intestinal ileus compared to old exam. Disposition Clinical Impression: Acute kidney injury, Dehydration Disposition: ADMITTED IP TO THIS [facility] Condition: Serious Referrals: Vic Hilario MD [Primary Care Provider] - 1-2 days Decision to Admit Reason: Admit from EC Decision Date: 05/09/19 Decision Time: 22:13
--- NOTE | 2019-05-09 22:10 | XR ---
EXAMINATION TYPE: XR chest 2V DATE OF EXAM: 05/09/2019 COMPARISON: 09/17/2018 HISTORY: Hypoxemia TECHNIQUE: Frontal and lateral views of the chest are obtained. FINDINGS: There is no heart failure. Heart is enlarged. There is a left axillary pacemaker. The late ral view shows some infiltrate at the posterior lung base that is probably on the left side. There is no pleural effusion. IMPRESSION: There is a mild left lower lobe pneumonia. No heart failure. Chest is probably not johnson ed compared to last exam. Stable cardiomegaly.
[2019-05-09] MEDS ORDERED: NALOXONE 0.4 MG/ML 1 ML VIAL IV PRN (22:11)
[2019-05-09] MEDS ORDERED: Potassium Replacement Protocol 1 EACH MISC MISCELLANE PRN (22:13)
[2019-05-09] MEDS ORDERED: NITROGLYCERIN SL TABS 0.4 MG TAB SUBLINGUAL PRN (22:16)
[2019-05-09] MEDS ORDERED: TRIMETHOBENZAMIDE 100 MG/ML 2 ML VIAL IM PRN (23:00)
[2019-05-09] MEDS: SODIUM CHLORIDE 0.9% 1,000 ML IV SCH (23:51)
[2019-05-09] MEDS: POTASSIUM CHLORIDE ER 20 MEQ TAB.ER PO SCH (23:52)
[2019-05-10] MEDS: POTASSIUM CHLORIDE ER 20 MEQ TAB.ER PO SCH ×9 (00:44→22:21)
[2019-05-10 04:55] LABS: Appearance,Urine Cloudy (Clear); Bacteria,Urine Many /hpf; Bilirubin,Urine Negative (Negative); Blood,Urine Negative (Negative); Color,Urine Yellow; Glucose,Urine (UA) Negative (Negative); Hyaline Casts,Urine 15 /lpf (0-2); Ketones,Urine Negative (Negative); Leukocyte Esterase,Urine Large (Negative); Mucus,Urine Rare /hpf; Nitrite,Urine Negative (Negative); Protein,Urine 1+ (Negative); RBC,Urine 2 /hpf (0-5); Specific Gravity,Urine 1.017 (1.001-1.035); Squamous Epithelial Cell,Urine <1 /hpf (0-4)
[2019-05-10 07:00] LABS: Glucose,Whole Blood 126 mg/dL (75-99)
[2019-05-10] MEDS: MULTIVITAMINS, THERA 1 EACH TAB PO SCH (08:19)
[2019-05-10] MEDS: CARVEDILOL 12.5 MG TAB PO SCH ×2 (08:19→17:23)
[2019-05-10] MEDS: DICYCLOMINE 20 MG TAB PO SCH ×4 (08:20→22:21)
[2019-05-10] MEDS: LIPASE 5,000/PROTEASE 17,000/AMYLASE 24,000 PO SCH ×4 (08:20→21:32)
[2019-05-10] MEDS: VIT A,C & E-LUTEIN-MINERALS 1 EACH TAB PO SCH ×2 (08:20→21:32)
[2019-05-10] MEDS ORDERED: LOSARTAN 25 MG TAB PO SCH (09:00)
[2019-05-10] MEDS ORDERED: PANTOPRAZOLE 40 MG TABLET PO SCH (09:00)
[2019-05-10] MEDS ORDERED: FUROSEMIDE 40 MG TAB PO SCH (09:00)
[2019-05-10 09:01] LABS: Calcium 7.1 mg/dL (8.4-10.2); Potassium 3.4 mmol/L (3.5-5.1); Total Bilirubin 0.9 mg/dL (0.2-1.3); Total Protein 5.7 g/dL (6.3-8.2)
[2019-05-10 11:14] LABS: Glucose,Whole Blood 198 mg/dL (75-99)
[2019-05-10 11:15] VITALS: BMI 20.8
[2019-05-10] MEDS ORDERED: ACETAMINOPHEN TAB 325 MG TAB PO PRN (12:22)
[2019-05-10] MEDS ORDERED: POTASSIUM CHLORIDE ER 20 MEQ TAB.ER PO STA ×2 (12:38→15:42)
[2019-05-10] MEDS ORDERED: IPRATROPIUM-ALBUTEROL 3 ML NEB INHALATION PRN (13:07)
[2019-05-10] MEDS: PANTOPRAZOLE 40 MG/10 ML VIAL IVP SCH ×2 (13:16→21:32)
[2019-05-10] MEDS: SODIUM CHLORIDE 0.9% 1,000 ML IV SCH ×2 (13:20→17:23)
--- NOTE | 2019-05-10 14:40 | P.HPIM ---
History of Present Illness 83-year-old pleasant gentleman came in accompanied complaint of multiple episodes of vomiting nausea epigastric abdominal burning sensation. Patient is found to have renal failure with serum creatinine going up to 2.4. Patient was started on IV fluids his present creatinine is 1.65. 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 Patient cannot provide me any further history regarding heart failure is not sure he was ever admitted for heart failure exacerbation. Patient does have chronic diarrhea is on Creon supplementation for that. Was extensively evaluate in the past for chronic diarrhea. Patient had a recent liver biopsy for liver mass and pancreatic mass does have elevated liver enzymes which appear to be subacute to chronic. Patient is a smoker cut down smoking still smokes 1-2 ci garettes per day bit hypoxic chest x-ray did not show pneumonia or pulmonary edema. Patient is presently on 2 L of oxygen saturating at 92%. Patient had a liver biopsy last Wednesday pathology results are still pending supposed to follow- up with oncology today as an outpatient patient was quite lethargic yesterday feeling much better today patient doesn't have any evidence of infection patient denied dysuria denied any significant cough no pneumonia or UTI does have lactic acidosis from intravascular depletion which improved with IV fluid resuscitation. Review of Systems REVIEW OF SYSTEMS: CONSTITUTIONAL: No fever, no malaise, no fatigue. HEENT: No recent visual problems or hearing problems. Denied any sore throat. CARDIOVASCULAR: No chest pain, orthopnea, PND, no palpitations, no syncope. PULMONARY: No shortness of breath, no cough, no hemoptysis. GASTROINTESTINAL: As mentioned in HPI NEUROLOGICAL: No headaches, no weakness, no numbness. HEMATOLOGICAL: Denies any bleeding or petechiae. GENITOURINARY: Denies any burning micturition, frequency, or urgency. MUSCULOSKELETAL/RHEUMATOLOGICAL: Denies any joint pain, swelling, or any muscle pain. ENDOCRINE: Denies any polyuria or polydipsia. The rest of the 14-point review of systems is negative. Past Medical History Past Medical History: Atrial Fibrillation, Heart Failure, CVA/TIA, Diabetes Mellitus, Hyperlipidemia, Hypertension, Liver Disease, Osteoarthritis (OA), Skin Disorder Additional Past Medical History / Comment(s): hepatitis when he was 18 years old, in 1970's had pancreas problems enzyme deficient, skin itching History of Any Multi-Drug Resistant Organisms: None Reported Past Surgical History: Heart Catheterization With Stent, Orthopedic Surgery, Pacemaker Additional Past Surgical History / Comment(s): pacemaker 2003, replaced pacemake r in 2010, liver biospy, left kneecap removed in , one testicle removed Past Anesthesia/Blood Transfusion Reactions: No Reported Reaction Date of Last Stent Placement:: 2014 Type of Cardiac Device: Permanent Pacemaker Device Placement Date:: 2010 Past Psychological History: No Psychological Hx Reported Smoking Status: Current some day smoker Past Alcohol Use History: None Reported Past Drug Use History: None Reported Additional Drug Use History / Comment(s): patient states he smokes 1-2 cigarettes per day. been smoking since he was 16 years old - Past Family History Mother Family Medical History: Cancer, Diabetes Mellitus Additional Family Medical History / Comment(s): colon cancer Father Family Medical History: Diabetes Mellitus Additional Family Medical History / Comment(s): emphysema Medications and Allergies Home Medications Medication Instructions Recorded Confirmed Type Carvedilol [Coreg] 25 mg PO BID 09/16/18 05/09/19 History Dicyclomine [Bentyl] 20 mg PO QID 09/16/18 05/09/19 History Furosemide [Lasix] 40 mg PO BID 09/16/18 05/09/19 History Lipase/Protease/Amylase [Creon Dr 3 cap PO ACHS 09/16/18 05/09/19 History 24,000 Units Capsule] Losartan [Cozaar] 25 mg PO DAILY 09/16/18 05/09/19 History Multivitamins, Thera [Multivitamin 1 tab PO DAILY 09/16/18 05/09/19 History (formulary)] Potassium Chloride ER [K-Dur 20] 20 meq PO DAILY 09/16/18 05/09/19 History Simvastatin [Zocor] 40 mg PO HS 09/16/18 05/09/19 History Vit C/E/Zn/Coppr/Lutein/Zeaxan 1 cap PO BID 09/16/18 05/09/19 History [Preservision Areds 2 Softgel] glipiZIDE XL [Glucotrol XL] 2.5 mg PO DAILY 09/16/18 05/09/19 History Nitroglycerin 0.4 mg SL Q5M PRN 05/01/19 05/09/19 History Omeprazole 20 mg PO DAILY 05/01/19 05/09/19 History Ondansetron HCl [Zofran] 8 mg PO Q8H PRN 05/09/19 05/09/19 History Allergies Allergy/AdvReac Type Severity Reaction Status Date / Time CLOVER Inhibitors Allergy Anaphylaxis Verified 05/09/19 20:43 amlodipine [From Norvasc] Allergy Rash/Hives Verified 05/09/19 20:43 cephalexin [From Keflex] Allergy Unknown Verified 05/09/19 20:43 Sulfa (Sulfonamide Allergy Unknown Verified 05/09/19 20:43 Antibiotics) valsartan [From Diovan] Allergy Anaphylaxis Verified 05/09/19 20:43 Physical Exam Vitals: Vital Signs Temp Pulse Pulse Resp BP BP Pulse Ox 05/10/19 11:13 98 F 76 20 118/61 92 L 05/10/19 05:27 98.2 F 90 16 115/71 93 L 05/09/19 23:00 98.4 F 86 16 115/67 91 L 05/09/19 22:48 80 17 126/68 94 L 05/09/19 21:35 84 18 121/74 96 05/09/19 20:48 85 18 123/71 90 L 05/09/19 19:26 98.3 F 92 22 118/60 88 L Intake and Output 05/09/19 05/10/19 05/10/19 22:59 06:59 14:59 Intake Total 600 Output Total 225 Balance 375 Intake: Intake, IV Titration 600 Amount Sodium Chloride 0.9% 1, 600 000 ml @ 100 mls/hr IV . Q10H [facility] Rx#:[id number] Output: Post Void Residual 225 Other: Voiding Method Urinal Toilet Weight 62.142 kg 62.142 kg PHYSICAL EXAMINATION: GENERAL: The patient is alert and oriented x3, not in any acute distress. Thin built elderly frail male HEENT: Pupils are round and equally reacting to light. EOMI. No scleral icterus. No conjunctival pallor. Normocephalic, atraumatic. No pharyngeal erythema. No thyromegaly. CARDIOVASCULAR: S1 and S2 present. No murmurs, rubs, or gallops. PULMONARY: Decreased air entry without any crackles or wheezing ABDOMEN: Soft, nontender, nondistended, normoactive bowel sounds. No palpable organomegaly. MUSCULOSKELETAL: No joint swelling or deformity. EXTREMITIES: No cyanosis, clubbing, or pedal edema. NEUROLOGICAL: Gross neurological examination did not reveal any focal deficits. SKIN: No rashes. Results CBC & Chem 7: 05/09/19 20:33 05/10/19 07:34 Labs: Abnormal Lab Results - Last 24 Hours (Table) 05/09/19 05/09/19 05/09/19 Range/Units 20:33 20:33 20:33 WBC 14.0 H (3.8-10.6) k/uL RBC 4.18 L (4.30-5.90) m/uL Neutrophils # 11.1 H (1.3-7.7) k/uL Potassium 3.1 L (3.5-5.1) mmol/L Chloride 81 L (98-107) mmol/L Carbon Dioxide 51 H* (22-30) mmol/L BUN 56 H (9-20) mg/dL Creatinine 2.04 H (0.66-1.25) mg/dL Glucose 144 H (74-99) mg/dL POC Glucose (mg/dL) (75-99) mg/dL Plasma Lactic Acid Ken 2.6 H* (0.7-2.0) mmol/L Calcium 7.9 L (8.4-10.2) mg/dL AST 107 H (17-59) U/L ALT 106 H (21-72) U/L Alkaline Phosphatase 541 H (38-126) U/L Troponin I (0.000-0.034) ng/mL Total Protein 6.0 L (6.3-8.2) g/dL Albumin 3.3 L (3.5-5.0) g/dL Urine Protein (Negative) Ur Leukocyte Esterase (Negative) Urine WBC (0-5) /hpf Urine Bacteria (None) /hpf Hyaline Casts (0-2) /lpf Urine Mucus (None) /hpf 05/09/19 05/10/19 05/10/19 Range/Units 20:33 02:04 02:04 WBC (3.8-10.6) k/uL RBC (4.30-5.90) m/uL Neutrophils # (1.3-7.7) k/uL Potassium 2.9 L (3.5-5.1) mmol/L Chloride (98-107) mmol/L Carbon Dioxide (22-30) mmol/L BUN (9-20) mg/dL Creatinine (0.66-1.25) mg/dL Glucose (74-99) mg/dL POC Glucose (mg/dL) (75-99) mg/dL Plasma Lactic Acid Ken (0.7-2.0) mmol/L Calcium (8.4-10.2) mg/dL AST (17-59) U/L ALT (21-72) U/L Alkaline Phosphatase (38-126) U/L Troponin I 0.048 H* 0.035 H* (0.000-0.034) ng/mL Total Protein (6.3-8.2) g/dL Albumin (3.5-5.0) g/dL Urine Protein (Negative) Ur Leukocyte Esterase (Negative) Urine WBC (0-5) /hpf Urine Bacteria (None) /hpf Hyaline Casts (0-2) /lpf Urine Mucus (None) /hpf 05/10/19 05/10/19 05/10/19 Range/Units 04:25 06:59 07:34 WBC (3.8-10.6) k/uL RBC (4.30-5.90) m/uL Neutrophils # (1.3-7.7) k/uL Potassium 3.4 L (3.5-5.1) mmol/L Chloride 88 L (98-107) mmol/L Carbon Dioxide 46 H* (22-30) mmol/L BUN 59 H (9-20) mg/dL Creatinine 1.65 H (0.66-1.25) mg/dL Glucose 118 H (74-99) mg/dL POC Glucose (mg/dL) 126 H (75-99) mg/dL Plasma Lactic Acid Ken (0.7-2.0) mmol/L Calcium 7.1 L (8.4-10.2) mg/dL AST 113 H (17-59) U/L ALT 96 H (21-72) U/L Alkaline Phosphatase 461 H (38-126) U/L Troponin I (0.000-0.034) ng/mL Total Protein 5.7 L (6.3-8.2) g/dL Albumin 3.0 L (3.5-5.0) g/dL Urine Protein 1+ H (Negative) Ur Leukocyte Esterase Large H (Negative) Urine WBC 56 H (0-5) /hpf Urine Bacteria Many H (None) /hpf Hyaline Casts 15 H (0-2) /lpf Urine Mucus Rare H (None) /hpf 05/10/19 Range/Units 11:12 WBC (3.8-10.6) k/uL RBC (4.30-5.90) m/uL Neutrophils # (1.3-7.7) k/uL Potassium (3.5-5.1) mmol/L Chloride (98-107) mmol/L Carbon Dioxide (22-30) mmol/L BUN (9-20) mg/dL Creatinine (0.66-1.25) mg/dL Glucose (74-99) mg/dL POC Glucose (mg/dL) 198 H (75-99) mg/dL Plasma Lactic Acid Ken (0.7-2.0) mmol/L Calcium (8.4-10.2) mg/dL AST (17-59) U/L ALT (21-72) U/L Alkaline Phosphatase (38-126) U/L Troponin I (0.000-0.034) ng/mL Total Protein (6.3-8.2) g/dL Albumin (3.5-5.0) g/dL Urine Protein (Negative) Ur Leukocyte Esterase (Negative) Urine WBC (0-5) /hpf Urine Bacteria (None) /hpf Hyaline Casts (0-2) /lpf Urine Mucus (None) /hpf Microbiology - Last 24 Hours (Table) 05/10/19 04:25 Urine Culture - Preliminary Urine,Voided Thrombosis Risk Factor Assmnt - Choose All That Apply Any of the Below Risk Factors Present?: No Other Risk Factors: Yes Each Risk Factor Represents 3 Points: Age 75 years or older Other congenital or acquired thrombophilia - If yes, enter type in comment: No Thrombosis Risk Factor Assessment Total Risk Factor Score: 3 Thrombosis Risk Factor Assessment Level: Moderate Risk Assessment and Plan Plan: -Acute renal failure: Secondary to intravascular depletion, prerenal azotemia from nausea vomiting with contribution from Lasix and losartan and Lasix and losartan will be held. Patient will continue on IV fluids and recheck the kidney function tomorrow baseline creatinine around 0.8. -Subacute to chronic elevation of liver enzymes probably secondary to hepatic mass and pancreatic Possibility of pancreatic cancer patient had a biopsy because of which are pending. -Epigastric abdominal burning sensation along with nausea vomiting: Sclerae to peptic ulcer disease as gastritis related to stress patient will be started on proton pump inhibitor. -Mild elevation of troponin without any significant EKG changes or chest pain this is secondary to renal dysfunction. -Hypokalemia: Natriuretic hypokalemia from IV fluids and potassium will be s upplemented. -Leukocytosis reactive no evidence of infection -Congestive heart failure history unknown ejection fraction we'll try and reach cardiology clinic or his diesel truck driver regarding his ejection fraction which will help me decide about his discharge diuretic therapy. Patient is taking 40 mg twice a day for over Lasix which contributed to his acute renal failure. -Atrial fibrillation was on anti-coagulation with Coumadin which is which was held for his liver biopsy although apparently his diesel truck driver recommended not to use Coumadin any more probably looking for new anticoagulants. 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 -Hyperlipidemia -Type 2 diabetes mellitus For above-mentioned chronic medical problems patient will be resumed on appropriate home medications
[2019-05-10 17:16] LABS: Glucose,Whole Blood 165 mg/dL (75-99)
[2019-05-10] MEDS: BUDESONIDE 0.5 MG/2 ML NEBU INHALATION SCH (19:40)
[2019-05-10 20:19] LABS: Glucose,Whole Blood 236 mg/dL (75-99)
[2019-05-11] MEDS: SODIUM CHLORIDE 0.9% 1,000 ML IV SCH ×2 (04:17→13:47)
[2019-05-11] MEDS: BUDESONIDE 0.5 MG/2 ML NEBU INHALATION SCH (07:16)
[2019-05-11 07:17] LABS: Glucose,Whole Blood 108 mg/dL (75-99)
[2019-05-11 07:32] LABS: HGB 11.7 gm/dL (13.0-17.5); MCH 33.8 pg (25.0-35.0); MCHC 33.4 g/dL (31.0-37.0); MCV 101.2 fL (80.0-100.0); Macrocytosis Slight; Mean Platelet Volume 7.6; Platelet Count 209 k/uL (150-450); RBC 3.46 m/uL (4.30-5.90); RDW 13.5 % (11.5-15.5); WBC 8.7 k/uL (3.8-10.6)
[2019-05-11 08:14] LABS: Albumin 2.7 g/dL (3.5-5.0); Calcium 7.5 mg/dL (8.4-10.2); Potassium 3.6 mmol/L (3.5-5.1); Total Bilirubin 0.8 mg/dL (0.2-1.3); Total Protein 5.2 g/dL (6.3-8.2)
[2019-05-11] MEDS: LIPASE 5,000/PROTEASE 17,000/AMYLASE 24,000 PO SCH ×2 (08:22→13:15)
[2019-05-11] MEDS: DICYCLOMINE 20 MG TAB PO SCH ×2 (08:23→13:15)
[2019-05-11] MEDS: MULTIVITAMINS, THERA 1 EACH TAB PO SCH (08:23)
[2019-05-11] MEDS: CARVEDILOL 12.5 MG TAB PO SCH (08:23)
[2019-05-11] MEDS: VIT A,C & E-LUTEIN-MINERALS 1 EACH TAB PO SCH (08:23)
[2019-05-11] MEDS: PANTOPRAZOLE 40 MG/10 ML VIAL IVP SCH (08:23)
[2019-05-11] MEDS: POTASSIUM CHLORIDE ER 20 MEQ TAB.ER PO SCH (08:26)
[2019-05-11 11:14] LABS: Glucose,Whole Blood 267 mg/dL (75-99)
[2019-05-11 12:37] VITALS: BP 121/66; PULSE 86; RESP 17; TEMP 97.8
[2019-05-11] MEDS ORDERED: INSULIN ASPART (NovoLOG) 100 UNIT/ML VIAL SQ SCH (13:00)
--- NOTE | 2019-05-11 14:49 | XR ---
EXAMINATION TYPE: XR chest 1V DATE OF EXAM: 05/11/2019 CLINICAL HISTORY: Difficulty breathing and CHF progress study. TECHNIQUE: Single AP portable upright view of the chest is obtained. COMPARISON: Chest x-ray from 2 days earlier FINDINGS: Cardiomegaly with atherosclerotic aorta and single lead pacemaker is redemonstrated. Chron ic parenchymal changes without new focal airspace opacity, pleural effusion, or pneumothorax. Improve d aeration left lung base thought present. Osseous structures are intact. IMPRESSION: Overall stable findings, chronic parenchymal changes and cardiomegaly without acute pul monary process identified on current study.
[2019-05-11] MEDS ORDERED: POTASSIUM CHLORIDE ER 20 MEQ TAB.ER PO STA (15:20)
--- NOTE | 2019-05-11 15:26 | P.DS ---
Providers Date of admission: 05/09/19 22:20 Attending physician: Nilson Polo MD Primary care physician: [facility] Course: 83-year-old pleasant gentleman came in accompanied complaint of multiple episodes of vomiting nausea epigastric abdominal burning sensation. Patient is found to have renal failure with serum creatinine going up to 2.4. Patient was started on IV fluids his present creatinine is 1.65. Patient also only Lasix and losartan patient does have history of congestive heart failure and do not have any echocardiogram available from trying to decide his proof clerk. Patient cannot provide me any further history regarding heart failure is not sure he was ever admitted for heart failure exacerbation. Patient does have chronic diarrhea is on Creon supplementation for that. Was extensively evaluate in the past for chronic diarrhea. Patient had a recent liver biopsy for liver mass and pancreatic mass does have elevated liver enzymes which appear to be subacute to chronic. Patient is a smoker cut down smoking still smokes 1-2 cigarettes per day bit hypoxic chest x-ray did not show pneumonia or pulmonary edema. Patient is presently on 2 L of oxygen saturating at 92%. Patient had a liver biopsy last Wednesday pathology results are still pending supposed to follow- up with oncology today as an outpatient patient was quite lethargic yesterday feeling much better today patient doesn't have any evidence of infection patient denied dysuria denied any significant cough no pneumonia or UTI does have lactic acidosis from intravascular depletion which improved with IV fluid resuscitation. 05/11/2019 Patient is clinically doing well and repeated the chest x-ray to make sure patient doesn't have any pulmonary edema patient doesn't have any pulmonary edema no nausea vomiting patient is able to tolerate diet patient will be discharged on Prilosec twice a day. Patient has a gastritis. Patient's creatinine improved to 1.1 but still on the volume depleted side resume his Lasix but will ask him to start taking it, day after tomorrow. I do not know his EF status tried to reach his proof clerk unable to reach his proof clerk will set up close follow-up with proof clerk. PHYSICAL EXAMINATION: GENERAL: The patient is alert and oriented x3, not in any acute distress. Thin built elderly frail male HEENT: Pupils are round and equally reacting to light. EOMI. No scleral icterus. No conjunctival pallor. Normocephalic, atraumatic. No pharyngeal erythema. No thyromegaly. CARDIOVASCULAR: S1 and S2 present. No murmurs, rubs, or gallops. PULMONARY: Decreased air entry without any crackles or wheezing ABDOMEN: Soft, nontender, nondistended, normoactive bowel sounds. No palpable organomegaly. MUSCULOSKELETAL: No joint swelling or deformity. EXTREMITIES: No cyanosis, clubbing, or pedal edema. NEUROLOGICAL: Gross neurological examination did not reveal any focal deficits. SKIN: No rashes. Assessment and Plan Plan: -Acute renal failure: Secondary to intravascular depletion, prerenal azotemia from nausea vomiting with contribution from Lasix and losartan apatient's creatinine improved patient will be resumed on her Lasix but above-mentioned dose -Subacute to chronic elevation of liver enzymes probably secondary to hepatic mass and pancreatic, patient appears to a Endocrine tumor. -Epigastric abdominal burning sensation along with nausea vomiting: Iprobably secondary to peptic ulcer disease and proton pump inhibitor management as mentioned above -Mild elevation of troponin without any significant EKG changes or chest pain this is secondary to renal dysfunction. -Hypokalemia: Natriuretic hypokalemia from IV fluids and potassium will be supplemented. -Leukocytosis reactive no evidence of infectionreactive secondary to nausea vomiting -Congestive heart failure history unknown ejection fraction we'll try and reach cardiology clinic or his proof clerk regarding his ejection fraction which will help me decide about his discharge diuretic therapy. Patient is taking 40 mg twice a day for over Lasix which contributed to his acute renal failure.patient's Lasix dose is being decreased -Atrial fibrillation was on anti-coagulation with Coumadin which is which was held for his liver biopsy although apparently his proof clerk recommended not to use Coumadin any more probably looking for new anticoagulants. 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 -Hyperlipidemia -Type 2 diabetes mellitus Patient Condition at Discharge: Serious Plan - Discharge Summary Discharge Rx Participant: No New Discharge Prescriptions: Continue Vit C/E/Zn/Coppr/Lutein/Zeaxan [Preservision Areds 2 Softgel] 1 cap PO BID Simvastatin [Zocor] 40 mg PO HS Potassium Chloride ER [K-Dur 20] 20 meq PO DAILY Multivitamins, Thera [Multivitamin (formulary)] 1 tab PO DAILY Losartan [Cozaar] 25 mg PO DAILY Lipase/Protease/Amylase [Creon Dr 24,000 Units Capsule] 3 cap PO ACHS glipiZIDE XL [Glucotrol XL] 2.5 mg PO DAILY Dicyclomine [Bentyl] 20 mg PO QID Carvedilol [Coreg] 25 mg PO BID Nitroglycerin 0.4 mg SL Q5M PRN PRN Reason: Chest Pain Ondansetron HCl [Zofran] 8 mg PO Q8H PRN PRN Reason: Nausea Furosemide [Lasix] 40 mg PO DAILY #0 Changed Omeprazole 20 mg PO BID #30 Discharge Medication List Carvedilol [Coreg] 25 mg PO BID 09/16/18 [History] Dicyclomine [Bentyl] 20 mg PO QID 09/16/18 [History] Lipase/Protease/Amylase [[place] Dr 24,000 Units Capsule] 3 cap PO ACHS 09/16/18 [History] Losartan [Cozaar] 25 mg PO DAILY 09/16/18 [History] Multivitamins, Thera [Multivitamin (formulary)] 1 tab PO DAILY 09/16/18 [History] Potassium Chloride ER [K-Dur 20] 20 meq PO DAILY 09/16/18 [History] Simvastatin [Zocor] 40 mg PO HS 09/16/18 [History] Vit C/E/Zn/Coppr/Lutein/Zeaxan [Preservision Areds 2 Softgel] 1 cap PO BID 09/16/18 [History] glipiZIDE XL [Glucotrol XL] 2.5 mg PO DAILY 09/16/18 [History] Nitroglycerin 0.4 mg SL Q5M PRN 05/01/19 [History] Ondansetron HCl [Zofran] 8 mg PO Q8H PRN 05/09/19 [History] Furosemide [Lasix] 40 mg PO DAILY #0 05/11/19 [Rx] Omeprazole 20 mg PO BID #30 05/11/19 [Rx] Follow up Appointment(s)/Referral(s): Vic Hilario MD [Primary Care Provider] - 3 Days Ilan Plata MD [STAFF PHYSICIAN] - 05/19/19 11:15 am Sheri Laughlin MD [STAFF PHYSICIAN] - 1 Week
[2019-05-11 15:38] LABS: Glucose,Whole Blood 226 mg/dL (75-99)
[2019-05-11] MEDS ORDERED: INFLUENZA VACCINE (6 MOS+) 60 MCG/0.5 ML SYRINGE IM ONE (16:46)
[2019-05-11 17:09] LABS: Glucose,Whole Blood 144 mg/dL (75-99)
[2019-05-12] MEDS ORDERED: PANTOPRAZOLE 40 MG TABLET PO SCH (17:30)
== END 2019-05-11 17:10 | disposition home or self-care (01) | DRG 683 ==
LOC: EC 19:21 → 3NMEDONC 22:20
PROVIDERS: ADMIT Internal Medicine; ATTEND Internal Medicine
DX: N17.9 Acute kidney failure, unspecified (principal); E87.2 Acidosis; K27.9 Peptic ulcer, site unspecified, unspecified as acute or chronic, without hemorrhage or perforation; K52.9 Noninfective gastroenteritis and colitis, unspecified; K29.70 Gastritis, unspecified, without bleeding; I50.9 Heart failure, unspecified; E11.9 Type 2 diabetes mellitus without complications; E78.5 Hyperlipidemia, unspecified; E86.0 Dehydration; E87.6 Hypokalemia; F17.210 Nicotine dependence, cigarettes, uncomplicated; I11.0 Hypertensive heart disease with heart failure; I48.91 Unspecified atrial fibrillation; Z79.84 Long term (current) use of oral hypoglycemic drugs; Z79.899 Other long term (current) drug therapy; Z80.0 Family history of malignant neoplasm of digestive organs; Z82.5 Family history of asthma and other chronic lower respiratory diseases; Z83.3 Family history of diabetes mellitus; Z86.73 Personal history of transient ischemic attack (TIA), and cerebral infarction without residual deficits; Z90.79 Acquired absence of other genital organ(s); Z95.0 Presence of cardiac pacemaker; R79.89 Other specified abnormal findings of blood chemistry; M19.90 Unspecified osteoarthritis, unspecified site; T50.1X5A Adverse effect of loop [high-ceiling] diuretics, initial encounter; T46.5X5A Adverse effect of other antihypertensive drugs, initial encounter; I25.10 Atherosclerotic heart disease of native coronary artery without angina pectoris; E86.9 Volume depletion, unspecified; D49.0 Neoplasm of unspecified behavior of digestive system; R94.5 Abnormal results of liver function studies; Z86.19 Personal history of other infectious and parasitic diseases; Z88.1 Allergy status to other antibiotic agents; Z88.2 Allergy status to sulfonamides; Z88.8 Allergy status to other drugs, medicaments and biological substances; Z95.5 Presence of coronary angioplasty implant and graft; R09.02 Hypoxemia
CPT/HCPCS: 36415; 71045; 71046; 74018; 80053; 81001; 82140; 83605; 84132; 84484; 85025; 85027; 85610; 85730; 87045; 87046; 87077; 87086; 87186; 87324; 90686; 93005; 94640; 96360; 96361; 99285

== ENCOUNTER 2019-05-14 12:37 | Inpatient (IN) | payer MEDICARE ==
[2019-05-14] MEDS ORDERED: SODIUM CHLORIDE 0.9% 500 ML 500 ML IV STA (12:42)
[2019-05-14] MEDS ORDERED: IPRATROPIUM-ALBUTEROL 3 ML NEB INHALATION STA (12:42)
[2019-05-14] MEDS ORDERED: SODIUM CHLORIDE 0.9% 1,000 ML IV STA (12:42)
[2019-05-14] MEDS ORDERED: methylPREDNISolone SOD SUCCI 125 MG/2 ML VIAL IV STA (12:42)
--- NOTE | 2019-05-14 13:09 | ED ---
SOB HPI - General Chief Complaint: Shortness of Breath Stated Complaint: SOB Time Seen by Provider: 05/14/19 12:37 Source: patient, EMS, RN notes reviewed, old records reviewed Mode of arrival: EMS Limitations: no limitations - History of Present Illness Initial Comments: This 83-year-old male was brought in by EMS due to shortness of breath is been going on since he was discharged in the hospital recently. He was admitted that time after having nausea vomiting the persisted after a liver biopsy was performed. She was noted to have acute renal failure also abdominal epigastric pain it was thought to be secondary to peptic ulcer disease. He did have a mild elevation of his troponin with no EKG changes he was hypokalemic also had a leukocytosis reaction and some evidence of CHF. He also does have a chronic history of A. fib. He does have a history of cancer apparently the liver and pancreas. He did get slight improvement after nebulizer treatment. He states she's had decreased oral intake. MD Complaint: shortness of breath - Related Data Home Medications Medication Instructions Recorded Confirmed Carvedilol [Coreg] 25 mg PO BID 09/16/18 05/09/19 Dicyclomine [Bentyl] 20 mg PO QID 09/16/18 05/09/19 Lipase/Protease/Amylase [[place] Waggoner 3 cap PO ACHS 09/16/18 05/09/19 24,000 Units Capsule] Losartan [Cozaar] 25 mg PO DAILY 09/16/18 05/09/19 Multivitamins, Thera [Multivitamin 1 tab PO DAILY 09/16/18 05/09/19 (formulary)] Potassium Chloride ER [K-Dur 20] 20 meq PO DAILY 09/16/18 05/09/19 Simvastatin [Zocor] 40 mg PO HS 09/16/18 05/09/19 Vit C/E/Zn/Coppr/Lutein/Zeaxan 1 cap PO BID 09/16/18 05/09/19 [Preservision Areds 2 Softgel] glipiZIDE XL [Glucotrol XL] 2.5 mg PO DAILY 09/16/18 05/09/19 Nitroglycerin 0.4 mg SL Q5M PRN 05/01/19 05/09/19 Ondansetron HCl [Zofran] 8 mg PO Q8H PRN 05/09/19 05/09/19 Previous Rx's Medication Instructions Recorded Furosemide [Lasix] 40 mg PO DAILY #0 05/11/19 Omeprazole 20 mg PO BID #30 05/11/19 Allergies Allergy/AdvReac Type Severity Reaction Status Date / Time CLOVER Inhibitors Allergy Anaphylaxis Verified 05/14/19 12:44 amlodipine [From Norvasc] Allergy Rash/Hives Verified 05/14/19 12:44 cephalexin [From Keflex] Allergy Unknown Verified 05/14/19 12:44 Sulfa (Sulfonamide Allergy Unknown Verified 05/14/19 12:44 Antibiotics) valsartan [From Diovan] Allergy Anaphylaxis Verified 05/14/19 12:44 Review of Systems ROS Statement: Those systems with pertinent positive or pertinent negative responses have been documented in the HPI. ROS Other: All systems not noted in ROS Statement are negative. 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, skin itching History of Any Multi-Drug Resistant Organisms: None Reported Past Surgical History: Heart Catheterization With Stent, Orthopedic Surgery, Pacemaker Additional Past Surgical History / Comment(s): pacemaker 2003, replaced pacemaker in 2010, liver biospy, left kneecap removed in , one testicle removed Past Anesthesia/Blood Transfusion Reactions: No Reported Reaction Date of Last Stent Placement:: 2014 Type of Cardiac Device: Permanent Pacemaker Device Placement Date:: 2010 Past Psychological History: No Psychological Hx Reported Smoking Status: Current some day smoker Past Alcohol Use History: None Reported Past Drug Use History: None Reported - Past Family History Mother Family Medical History: Cancer, Diabetes Mellitus Additional Family Medical History / Comment(s): colon cancer Father Family Medical History: Diabetes Mellitus Additional Family Medical History / Comment(s): emphysema General Exam - General Exam Comments Initial Comments: This is a well-developed sec appearing male who is awake alert though somewhat lethargic. Limitations: no limitations General appearance: alert, in no apparent distress Head exam: Present: atraumatic, normocephalic, normal inspection Eye exam: Present: normal appearance, PERRL, EOMI. Absent: scleral icterus, con junctival injection, periorbital swelling ENT exam: Present: mucous membranes dry Neck exam: Present: normal inspection, full ROM, other (No stridor JVD or bruits). Absent: tenderness, meningismus, lymphadenopathy Respiratory exam: Present: wheezes (Skin the wheezes or rhonchi), chest wall tenderness (Alejandro over the xiphoid no step-off or crepitation), decreased breath sounds, other (Pacemaker in left upper chest wall is noted). Absent: respiratory distress, rales, rhonchi, stridor Cardiovascular Exam: Present: normal rhythm, tachycardia, normal heart sounds. Absent: systolic murmur, diastolic murmur, rubs, gallop, clicks GI/Abdominal exam: Present: soft, normal bowel sounds. Absent: distended, tenderness, guarding, rebound, rigid Extremities exam: Present: normal inspection, full ROM, normal capillary refill. Absent: tenderness, pedal edema, joint swelling, calf tenderness Back exam: Present: normal inspection Neurological exam: Present: alert, oriented X3, CN II-XII intact Psychiatric exam: Present: normal affect, normal mood Skin exam: Present: warm, dry, intact, normal color. Absent: rash Course Vital Signs 05/14/19 05/14/19 05/14/19 12:41 12:44 13:00 Temperature 98.4 F Pulse Rate 109 H 105 H Respiratory 24 25 H Rate Blood Pressure 107/64 109/70 O2 Sat by Pulse 83 L 83 L 91 L Oximetry 05/14/19 05/14/19 05/14/19 13:10 13:30 13:34 Temperature Pulse Rate 102 H 102 H 113 H Respiratory 20 21 Rate Blood Pressure 124/62 126/70 O2 Sat by Pulse 88 L 89 L Oximetry 05/14/19 05/14/19 05/14/19 13:40 13:44 13:50 Temperature Pulse Rate 96 112 H 114 H Respiratory 16 21 Rate Blood Pressure 118/65 137/77 O2 Sat by Pulse 92 L 91 L Oximetry - Reevaluation(s) Reevaluation #1: 05/14/19 14:31 Evaluation patient reveals some improvement in his breathing. He does feel somewhat better Medical Decision Making - Medical Decision Making I did discuss findings with the patient and with Dr. Yates patient will be admitted for inpatient treatment of dyspnea hypokalemia heart failure and bronchospasm - Lab Data Result diagrams: 05/14/19 13:00 05/14/19 13:00 Lab Results 05/14/19 05/14/19 05/14/19 Range/Units 13:00 13:00 13:00 WBC 16.4 H (3.8-10.6) k/uL RBC 4.48 (4.30-5.90) m/uL Hgb 15.1 D (13.0-17.5) gm/dL Hct 44.4 (39.0-53.0) % MCV 99.2 (80.0-100.0) fL MCH 33.7 (25.0-35.0) pg MCHC 34.0 (31.0-37.0) g/dL RDW 13.5 (11.5-15.5) % Plt Count 356 (150-450) k/uL Neutrophils % 80 % Lymphocytes % 11 % Monocytes % 7 % Eosinophils % 0 % Basophils % 0 % Neutrophils # 13.2 H (1.3-7.7) k/uL Lymphocytes # 1.8 (1.0-4.8) k/uL Monocytes # 1.2 H (0-1.0) k/uL Eosinophils # 0.0 (0-0.7) k/uL Basophils # 0.0 (0-0.2) k/uL PT (9.0-12.0) sec INR (<1.2) APTT (22.0-30.0) sec Sodium 144 (137-145) mmol/L Potassium 2.9 L (3.5-5.1) mmol/L Chloride 100 (98-107) mmol/L Carbon Dioxide 38 H (22-30) mmol/L Anion Gap 6 mmol/L BUN 57 H (9-20) mg/dL Creatinine 1.36 H (0.66-1.25) mg/dL Est GFR (CKD-EPI)AfAm 55 (>60 ml/min/1.73 sqM) Est GFR (CKD-EPI)NonAf 48 (>60 ml/min/1.73 sqM) Glucose 141 H (74-99) mg/dL Calcium 7.4 L (8.4-10.2) mg/dL Magnesium 2.1 (1.6-2.3) mg/dL Total Bilirubin 0.8 (0.2-1.3) mg/dL AST 69 H (17-59) U/L ALT 84 H (21-72) U/L Alkaline Phosphatase 416 H (38-126) U/L Creatine Kinase 45 L (55-170) U/L Troponin I (0.000-0.034) ng/mL NT-Pro-B Natriuret Pep 3260 pg/mL Total Protein 5.4 L (6.3-8.2) g/dL Albumin 2.8 L (3.5-5.0) g/dL 05/14/19 05/14/19 Range/Units 13:00 13:00 WBC (3.8-10.6) k/uL RBC (4.30-5.90) m/uL Hgb (13.0-17.5) gm/dL Hct (39.0-53.0) % MCV (80.0-100.0) fL MCH (25.0-35.0) pg MCHC (31.0-37.0) g/dL RDW (11.5-15.5) % Plt Count (150-450) k/uL Neutrophils % % Lymphocytes % % Monocytes % % Eosinophils % % Basophils % % Neutrophils # (1.3-7.7) k/uL Lymphocytes # (1.0-4.8) k/uL Monocytes # (0-1.0) k/uL Eosinophils # (0-0.7) k/uL Basophils # (0-0.2) k/uL PT 11.8 (9.0-12.0) sec INR 1.1 (<1.2) APTT 25.3 (22.0-30.0) sec Sodium (137-145) mmol/L Potassium (3.5-5.1) mmol/L Chloride (98-107) mmol/L Carbon Dioxide (22-30) mmol/L Anion Gap mmol/L BUN (9-20) mg/dL Creatinine (0.66-1.25) mg/dL Est GFR (CKD-EPI)AfAm (>60 ml/min/1.73 sqM) Est GFR (CKD-EPI)NonAf (>60 ml/min/1.73 sqM) Glucose (74-99) mg/dL Calcium (8.4-10.2) mg/dL Magnesium (1.6-2.3) mg/dL Total Bilirubin (0.2-1.3) mg/dL AST (17-59) U/L ALT (21-72) U/L Alkaline Phosphatase (38-126) U/L Creatine Kinase (55-170) U/L Troponin I 0.017 (0.000-0.034) ng/mL NT-Pro-B Natriuret Pep pg/mL Total Protein (6.3-8.2) g/dL Albumin (3.5-5.0) g/dL - EKG Data -: EKG Interpreted by Me (Atrial fibrillation rate of 1:15 QRS 98 QT since QTC 364/503 low-voltage QR) - Radiology Data Radiology results: report reviewed (I did review the imaging and report or is evidence of pleural effusions no definite evidence of CHF), image reviewed Disposition Clinical Impression: Congestive heart failure, Acute respiratory distress syndrome in adult, Hypokalemia, Renal insufficiency syndrome, Hypoxemia Disposition: ADMITTED IP TO THIS [facility] Condition: Fair Referrals: Vic Hilario MD [Primary Care Provider] - 1-2 days
[2019-05-14 13:20] LABS: Albumin 2.8 g/dL (3.5-5.0); Calcium 7.4 mg/dL (8.4-10.2); Magnesium 2.1 mg/dL (1.6-2.3); Potassium 2.9 mmol/L (3.5-5.1); Total Bilirubin 0.8 mg/dL (0.2-1.3); Total Protein 5.4 g/dL (6.3-8.2)
[2019-05-14 13:22] LABS: Basophils % (A) 0 %; Eosinophils % (A) 0 %; HCT 44.4 % (39.0-53.0); Lymphocytes # (A) 1.8 k/uL (1.0-4.8); Lymphocytes % (A) 11 %; MCH 33.7 pg (25.0-35.0); MCV 99.2 fL (80.0-100.0); Mean Platelet Volume 6.6; Monocytes # (A) 1.2 k/uL (0-1.0); Monocytes % (A) 7 %; Neutrophils # (A) 13.2 k/uL (1.3-7.7); Neutrophils % (A) 80 %; Platelet Count 356 k/uL (150-450); RBC 4.48 m/uL (4.30-5.90); RDW 13.5 % (11.5-15.5); WBC 16.4 k/uL (3.8-10.6)
[2019-05-14 13:23] LABS: HGB 15.1 gm/dL (13.0-17.5); INR 1.1 (<1.2); Partial Thromboplastin Time 25.3 sec (22.0-30.0); Prothrombin Time 11.8 sec (9.0-12.0)
--- NOTE | 2019-05-14 14:16 | XR ---
EXAMINATION TYPE: XR chest 2V DATE OF EXAM: 05/14/2019 COMPARISON: 05/11/2019 HISTORY: Short of breath TECHNIQUE: Frontal and lateral views of the chest are obtained. FINDINGS: Heart is enlarged. There is blunting of costophrenic angles. There is a left axillary pace maker. Lungs are clear of consolidation. Thoracic aorta is atheromatous. IMPRESSION: Mild cardiomegaly. Pleural effusions. Minimal heart failure is possible. No change oksana red to last exam.
[2019-05-14] MEDS ORDERED: NITROGLYCERIN SL TABS 0.4 MG TAB SUBLINGUAL PRN (14:43)
[2019-05-14] MEDS ORDERED: ONDANSETRON 4 MG TAB PO PRN (14:43)
[2019-05-14] MEDS ORDERED: LEVOFLOXACIN 750 MG TAB PO STA (14:46)
[2019-05-14] MEDS ORDERED: POTASSIUM CHLORIDE ER 20 MEQ TAB.ER PO STA (15:33)
[2019-05-14] MEDS: SODIUM CHLORIDE 0.9% 1,000 ML IV SCH (16:12)
[2019-05-14 17:11] LABS: Glucose,Whole Blood 168 mg/dL (75-99)
[2019-05-14] MEDS: CARVEDILOL 12.5 MG TAB PO SCH (17:23)
[2019-05-14] MEDS: DICYCLOMINE 20 MG TAB PO SCH ×2 (17:23→19:42)
[2019-05-14] MEDS: INSULIN ASPART (NovoLOG) 100 UNIT/ML VIAL SQ SCH ×2 (17:24→20:47)
[2019-05-14] MEDS: CALCIUM CARBONATE LIQUID 500 MG/5 ML CUP PO SCH (17:58)
[2019-05-14] MEDS: IPRATROPIUM-ALBUTEROL 3 ML NEB INHALATION SCH ×3 (19:08→23:34)
[2019-05-14] MEDS: PANTOPRAZOLE 40 MG TABLET PO SCH (19:42)
[2019-05-14] MEDS: ATORVASTATIN 20 MG TAB PO SCH (19:42)
[2019-05-14] MEDS: VIT A,C & E-LUTEIN-MINERALS 1 EACH TAB PO SCH (19:44)
[2019-05-14 20:42] LABS: Glucose,Whole Blood 161 mg/dL (75-99)
[2019-05-14] MEDS ORDERED: FUROSEMIDE 10 MG/ML 4 ML VIAL IV SCH (21:00)
--- NOTE | 2019-05-14 22:22 | P.HPIM ---
History of Present Illness H&P Date: 05/14/19 Chief Complaint: Shortness of breath congested History of presenting complaint: This is a pleasant 83-year-old patient of Dr. Vic Hilario. Chronic stable medical conditions include diabetes mellitus type 2, hyperlipidemia, hypertension, osteoarthritis. Patient is foldable liver mass and recently a liver biopsy done. But his come back showing metastatic neuroendocrine carcinoma. Patient presented with noted below symptoms. Congested in the chest. Short of breath and wheezing. Patient has a long-standing watery diarrhea. Some abdominal pain. Patient has been followed by oncology and GI. Patient is . Has been getting weak and tired. Using a walker. Appetite is gone down. No fever no chills. Wheezing is present. Patient has been smoking for many years. The down to a few cigarettes a day. Review of systems: GEN.: Weak tired decreased appetite EYES: None HEENT: Decreased hearing NECK: None RESPIRATORY: Congested, cough, minimal sputum CARDIOVASCULAR: None GASTROINTESTINAL: Multiple watery diarrhea daily GENITOURINARY: None MUSCULOSKELETAL: . In the joints LYMPHATICS: None HEMATOLOGICAL: None PSYCHIATRY: Slightly anxious NEUROLOGICAL: None Past medical history to include: Atrial fibrillation, CHF, diabetes, hyperlipidemia, hypertension, liver mass showing metastatic neuroendocrine carcinoma, Judson arthritis, pancreatic disorder with enzyme deficiency, coronary artery disease with stent permanent pacemaker Social history: Retired, working since the age of 15 now don't to a few cigarettes a day. No alcohol. . Retired Physical examination: VITAL SIGNS: 98.4, 109, 24, 107/64, 83% on room air GENERAL: BMI 20.8, laying in bed tired. EYES: Pupils equal. Conjunctiva normal. HEENT: External appearance of nose and ears normal, oral cavity grossly normal. NECK: JVD unable to assess masses not palpable. HEART: Heart sounds irregular, no edema. LUNGS: Respiratory rate increased, decreased breath sounds prolonged expiration and expiratory crackles. ABDOMEN: Soft, mild midabdominal tenderness, no guarding or rigidity, liver spleen not palpable, no masses palpable. PSYCH: Alert and oriented x3; mood and affect anxiousl. NEUROLOGICAL: Cranial nerves grossly intact; no facial asymmetry, power and sensation grossly intact. LYMPHATICS: No lymph nodes palpable in the axilla and neck INVESTIGATIONS, reviewed in the clinical context: White count 16.4 hemoglobin 15.1 potassium 2.9 bun 57 creatinine 1.36 AST 60 02/20/2084 alk phos 416 proBNP 3260 albumin 2.8 EKG tracing personally reviewed by me-atrial fibrillation rate around 1:15 Chest x-ray film personally reviewed by me-some cardiomegaly, venous prominence, left pleural effusion liver mass biopsy showing metastatic neuroendocrine carcinoma Patient's creatinine was 0.76 in September of this year. Assessment: -This is a patient has long-standing diarrhea abdominal pain, some respiratory symptoms with liver biopsy showing metastatic neuroendocrine carcinoma. Given patient's age of 83 and multiple medical problems prognosis is not good. Could give her a short trial of Sandostatin see if that helps. -Acute COPD exacerbation in a current smoker -Chronic nicotine dependence patient cigarette smoker -Possible acute on chronic congestive heart failure, from underlying coronary artery disease -Persistent atrial flutter fibrillation with uncontrolled -Chronic Coumadin monitoring -Hyperlipidemia -Essential hypertension -Diabetes mellitus type 2 on oral hypoglycemic - acute kidney injury likely secondary to prerenal from persistent diarrhea dec reased oral intake -Coronary artery disease, with stent Plan: Patient started on nebulized bronchodilators, inhaled and IV steroids. Home medications resumed. Give nicotine patch. We'll try the patient on Sandostatin 100 g subcu every 8. Consultations by 2 cardiology, oncology, GI. Prognosis guarded. No family is present Past Medical History Past Medical History: Atrial Fibrillation, Heart Failure, CVA/TIA, Diabetes Mellitus, Hyperlipidemia, Hypertension, Liver Disease, Osteoarthritis (OA), Skin Disorder Additional Past Medical History / Comment(s): hepatitis when he was 18 years old, in 1970's had pancreas problems enzyme deficient, skin itching History of Any Multi-Drug Resistant Organisms: None Reported Past Surgical History: Heart Catheterization With Stent, Orthopedic Surgery, Pacemaker Additional Past Surgical History / Comment(s): pacemaker 2003, replaced pacemaker in 2010, liver biospy, left kneecap removed in , one testicle removed Past Anesthesia/Blood Transfusion Reactions: No Reported Reaction Date of Last Stent Placement:: 2014 Type of Cardiac Device: Permanent Pacemaker Device Placement Date:: 2010 Past Psychological History: No Psychological Hx Reported Smoking Status: Current some day smoker Past Alcohol Use History: None Reported Past Drug Use History: None Reported Additional Drug Use History / Comment(s): patient states he smokes 1-2 cigarettes per day. been smoking since he was 16 years old - Past Family History Mother Family Medical History: Cancer, Diabetes Mellitus Additional Family Medical History / Comment(s): colon cancer Father Family Medical History: Diabetes Mellitus Additional Family Medical History / Comment(s): emphysema Medications and Allergies Home Medications Medication Instructions Recorded Confirmed Type Carvedilol [Coreg] 25 mg PO BID 09/16/18 05/14/19 History Dicyclomine [Bentyl] 20 mg PO QID 09/16/18 05/14/19 History Lipase/Protease/Amylase [Creon Dr 3 cap PO ACHS 09/16/18 05/14/19 History 24,000 Units Capsule] Losartan [Cozaar] 25 mg PO DAILY 09/16/18 05/14/19 History Potassium Chloride ER [K-Dur 20] 20 meq PO DAILY 09/16/18 05/14/19 History Simvastatin [Zocor] 40 mg PO HS 09/16/18 05/14/19 History Vit C/E/Zn/Coppr/Lutein/Zeaxan 1 cap PO BID 09/16/18 05/14/19 History [Preservision Areds 2 Softgel] glipiZIDE XL [Glucotrol XL] 2.5 mg PO DAILY 09/16/18 05/14/19 History Nitroglycerin 0.4 mg SL Q5M PRN 05/01/19 05/14/19 History Ondansetron HCl [Zofran] 8 mg PO Q8H PRN 05/09/19 05/14/19 History Furosemide [Lasix] 40 mg PO DAILY #0 05/11/19 05/14/19 Rx Omeprazole 20 mg PO BID #30 05/11/19 05/14/19 Rx Multivit-Min/FA/Lycopen/Lutein 1 tab PO DAILY 05/14/19 05/14/19 History [Centrum Silver Men Tablet] Warfarin [Coumadin] 2.5 mg PO TUTH 05/14/19 05/14/19 History Warfarin [Coumadin] 5 mg PO SUMOWEFRSA 05/14/19 05/14/19 History Allergies Allergy/AdvReac Type Severity Reaction Status Date / Time CLOVER Inhibitors Allergy Anaphylaxis Verified 05/14/19 12:44 amlodipine [From Norvasc] Allergy Rash/Hives Verified 05/14/19 12:44 cephalexin [From Keflex] Allergy Unknown Verified 05/14/19 12:44 Sulfa (Sulfonamide Allergy Unknown Verified 05/14/19 12:44 Antibiotics) valsartan [From Diovan] Allergy Anaphylaxis Verified 05/14/19 12:44 Physical Exam Vitals: Vital Signs Temp Pulse Pulse Resp BP BP Pulse Ox 05/14/19 19:45 98.2 F 97 18 126/61 96 05/14/19 19:24 104 H 05/14/19 19:09 111 H 98 05/14/19 16:00 111 H 18 120/56 91 L 05/14/19 15:10 94 L 05/14/19 13:50 114 H 21 137/77 91 L 05/14/19 13:44 112 H 05/14/19 13:40 96 16 118/65 92 L 05/14/19 13:34 113 H 05/14/19 13:30 102 H 21 126/70 89 L 05/14/19 13:10 102 H 20 124/62 88 L 05/14/19 13:00 105 H 25 H 109/70 91 L 05/14/19 12:44 98.4 F 109 H 24 107/64 83 L 05/14/19 12:41 83 L Intake and Output 05/14/19 05/14/19 05/14/19 06:59 14:59 22:59 Intake Total 90 Balance 90 Intake: Oral 90 Other: # Voids 1 Weight 62.142 kg 62.142 kg Results CBC & Chem 7: 05/14/19 13:00 05/14/19 13:00 Labs: Abnormal Lab Results - Last 24 Hours (Table) 05/14/19 05/14/19 05/14/19 Range/Units 13:00 13:00 17:07 WBC 16.4 H (3.8-10.6) k/uL Neutrophils # 13.2 H (1.3-7.7) k/uL Monocytes # 1.2 H (0-1.0) k/uL Potassium 2.9 L (3.5-5.1) mmol/L Carbon Dioxide 38 H (22-30) mmol/L BUN 57 H (9-20) mg/dL Creatinine 1.36 H (0.66-1.25) mg/dL Glucose 141 H (74-99) mg/dL POC Glucose (mg/dL) 168 H (75-99) mg/dL Calcium 7.4 L (8.4-10.2) mg/dL AST 69 H (17-59) U/L ALT 84 H (21-72) U/L Alkaline Phosphatase 416 H (38-126) U/L Creatine Kinase 45 L (55-170) U/L Total Protein 5.4 L (6.3-8.2) g/dL Albumin 2.8 L (3.5-5.0) g/dL 05/14/19 Range/Units 20:41 WBC (3.8-10.6) k/uL Neutrophils # (1.3-7.7) k/uL Monocytes # (0-1.0) k/uL Potassium (3.5-5.1) mmol/L Carbon Dioxide (22-30) mmol/L BUN (9-20) mg/dL Creatinine (0.66-1.25) mg/dL Glucose (74-99) mg/dL POC Glucose (mg/dL) 161 H (75-99) mg/dL Calcium (8.4-10.2) mg/dL AST (17-59) U/L ALT (21-72) U/L Alkaline Phosphatase (38-126) U/L Creatine Kinase (55-170) U/L Total Protein (6.3-8.2) g/dL Albumin (3.5-5.0) g/dL Thrombosis Risk Factor Assmnt - Choose All That Apply Each Factor Represents 1 point: Abnormal pulmonary function (COPD), Serious lung disease incl. pneumonia (< 1month) Each Risk Factor Represents 3 Points: Age 75 years or older Thrombosis Risk Factor Assessment Total Risk Factor Score: 5 Thrombosis Risk Factor Assessment Level: High Risk
[2019-05-14] MEDS: guaiFENesin 600 MG TABLET.ER PO SCH (22:44)
[2019-05-14] MEDS: methylPREDNISolone SOD SUCCI 40 MG/ML 1 ML VIAL IV SCH (22:46)
[2019-05-14] MEDS: OCTREOTIDE 100 MCG/ML INJ SQ SCH (22:46)
[2019-05-14] MEDS: BUDESONIDE 1 MG/2 ML NEBU INHALATION SCH (23:33)
[2019-05-15] MEDS: SODIUM CHLORIDE 0.9% 1,000 ML IV SCH ×2 (00:29→20:52)
[2019-05-15] MEDS: IPRATROPIUM-ALBUTEROL 3 ML NEB INHALATION SCH ×5 (04:05→19:09)
[2019-05-15 06:20] LABS: Glucose,Whole Blood 218 mg/dL (75-99)
[2019-05-15 06:22] LABS: Calcium 7.3 mg/dL (8.4-10.2); Potassium 3.8 mmol/L (3.5-5.1)
[2019-05-15] MEDS: methylPREDNISolone SOD SUCCI 40 MG/ML 1 ML VIAL IV SCH ×3 (06:26→20:34)
[2019-05-15] MEDS: OCTREOTIDE 100 MCG/ML INJ SQ SCH ×3 (06:26→20:40)
[2019-05-15] MEDS: CARVEDILOL 12.5 MG TAB PO SCH ×2 (06:26→17:26)
[2019-05-15] MEDS: CALCIUM CARBONATE LIQUID 500 MG/5 ML CUP PO SCH ×3 (06:26→17:28)
[2019-05-15] MEDS: INSULIN ASPART (NovoLOG) 100 UNIT/ML VIAL SQ SCH ×4 (06:27→20:26)
[2019-05-15] MEDS: BUDESONIDE 1 MG/2 ML NEBU INHALATION SCH ×2 (07:43→19:09)
[2019-05-15] MEDS: VIT A,C & E-LUTEIN-MINERALS 1 EACH TAB PO SCH ×2 (08:51→20:26)
[2019-05-15] MEDS: MULTIVITAMINS, THERA 1 EACH TAB PO SCH (08:51)
[2019-05-15] MEDS: guaiFENesin 600 MG TABLET.ER PO SCH ×2 (08:51→20:26)
[2019-05-15] MEDS: DICYCLOMINE 20 MG TAB PO SCH ×4 (08:51→20:26)
[2019-05-15] MEDS: PANTOPRAZOLE 40 MG TABLET PO SCH ×2 (08:51→20:26)
[2019-05-15] MEDS: LOSARTAN 25 MG TAB PO SCH (08:51)
[2019-05-15] MEDS: APIXABAN 5 MG TAB PO SCH ×2 (08:51→20:26)
[2019-05-15] MEDS: POTASSIUM CHLORIDE ER 20 MEQ TAB.ER PO SCH (08:51)
[2019-05-15] MEDS: FUROSEMIDE 10 MG/ML 4 ML VIAL IV SCH (08:52)
[2019-05-15] MEDS ORDERED: FUROSEMIDE 40 MG TAB PO SCH (09:00)
--- NOTE | 2019-05-15 10:22 | ECHOF ---
Referral Reason:Assess LV function MEASUREMENTS -------- HEIGHT: 172.7 cm WEIGHT: 64.9 kg BP: 128/63 RVIDd: 3.2 cm (< 3.3) IVSd: 1.3 cm (0.6 - 1.1) LVIDd: 4.5 cm (3.9 - 5.3) LVPWd: 1.4 cm (0.6 - 1.1) IVSs: 2.1 cm LVIDs: 2.7 cm LVPWs: 1.6 cm LA Diam: 4.2 cm (2.7 - 3.8) LAESV Index (A-L): 62.03 ml/m Ao Diam: 4.0 cm (2.0 - 3.7) AV Cusp: 2.0 cm (1.5 - 2.6) MV EXCURSION: 23.254 mm (> 18.000) MV EF SLOPE: 132 mm/s (70 - 150) EPSS: 0.8 cm RAP: 5.00 mmHg RVSP: 33.39 mmHg FINDINGS -------- Atrial fibrillation. This was a technically adequate study. The left ventricular size is normal. There is moderate concentric left ventricular hypertrophy. O verall left ventricular systolic function is mildly impaired with, an EF between 45 - 50 %. Basal i nferior LV wall motion is hypokinetic. Basal inferoseptal LV wall motion is hypokinetic. The right ventricle is normal in size. LA is severely dilated >40 ml/m2 The right atrium is normal in size. Interatrial and interventricular septum intact. There is mild aortic valve sclerosis. The mitral valve leaflets are mildly thickened. Mild mitral annular calcification present. Mild m itral regurgitation is present. Mild tricuspid regurgitation present. There is borderline pulmonary hypertension. The right ventr icular systolic pressure, as measured by Doppler, is 33.39mmHg. Trace/mild (physiologic) pulmonic regurgitation. The aortic root is dilated measuring 4.0cm. Normal inferior vena cava with normal inspiratory collapse consistent with estimated right atrial pre ssure of 5 mmHg. The inferior vena cava is mildly dilated. There is no pericardial effusion. CONCLUSIONS -------- 1. Atrial fibrillation. 2. This was a technically adequate study. 3. The left ventricular size is normal. 4. There is moderate concentric left ventricular hypertrophy. 5. Overall left ventricular systolic function is mildly impaired with, an EF between 45 - 50 %. 6. Basal inferior LV wall motion is hypokinetic. 7. Basal inferoseptal LV wall motion is hypokinetic. 8. The right ventricle is normal in size. 9. LA is severely dilated >40 ml/m2 10. The right atrium is normal in size. 11. Interatrial and interventricular septum intact. 12. There is mild aortic valve sclerosis. 13. The mitral valve leaflets are mildly thickened. 14. Mild mitral annular calcification present. 15. Mild mitral regurgitation is present. 16. Mild tricuspid regurgitation present. 17. There is borderline pulmonary hypertension. 18. The right ventricular systolic pressure, as measured by Doppler, is 33.39mmHg. 19. Trace/mild (physiologic) pulmonic regurgitation. 20. The aortic root is dilated measuring 4.0cm. 21. Normal inferior vena cava with normal inspiratory collapse consistent with estimated right atrial pressure of 5 mmHg. 22. The inferior vena cava is mildly dilated. 23. There is no pericardial effusion. CLARK DRIVER: Isabelle Peters RDCS
--- NOTE | 2019-05-15 11:20 | CONS ---
CONSULTATION Mr. Guan is an 83-year-old male who is followed by Dr. Hilario and Dr. Laughlin. History of chronic atrial fibrillation who presented to the emergency room with progressive abdominal discomfort. The patient was in the hospital recently, had abdominal discomfort, underwent a biopsy of his liver because of a mass and was found to have metastatic moderately differentiated neuroendocrine carcinoma. He has been followed by Dr. Plata. He feels short of breath and some wheezing. He denies any chest discomfort. He denies any peripheral edema, no clear PND, no orthopnea. He has been feeling progressively fatigued. He has been anticoagulated in the past, but the anticoagulation was stopped because of the biopsy and the plan was to switch to a direct oral anticoagulant. The patient has a history of coronary artery disease according to him, history of peripheral vessel disease, history of permanent pacemaker implantation. It is unclear that he had any history of congestive heart failure in the past and I do not have any evaluation of his left ventricular systolic function in the past. The patient has a history of chronic tobacco use with chronic smoking. His coronary risk factors are remarkable for the smoking, history of hyperlipidemia and a history of diabetes as well as hypertension. His medication at home include losartan 25 mg daily, potassium, glipizide, simvastatin 40 mg daily, Lasix 40 mg daily, omeprazole, Creon, Coreg 25 mg twice a day, and PreserVision in addition to Zofran. REVIEW OF SYSTEMS: RESPIRATORY SYSTEM: He had dyspnea on exertion. He has a history of cough and chronic tobacco use. GI SYSTEM: He has the diarrhea, abdominal pain. The abnormal CT scan. SYSTEM: No dysuria, hematuria. NERVOUS SYSTEM: Has history of stroke but no seizure. PHYSICAL EXAMINATION: He is an 83-year-old male, alert, oriented, in no apparent distress. Blood pressure in 128/60 with a heart rate in the 90s. HEAD: Normocephalic. EYES: Sclerae nonicteric. NECK: Good upstroke, no bruit. LUNGS: With decreased air exchange bilaterally with scattered wheezes. HEART: Irregular, regular, S1, S2. No S3 with systolic murmur, no diastolic murmur, no rub. ABDOMEN: Soft, nontender. Positive bowel sounds no organomegaly. EXTREMITIES: No edema. LAB DATA: Revealed a hemoglobin of 15.1, white blood cell of 16.4, potassium 3.8, BUN and creatinine 62 and 1.34. AST of 69, ALT of 84. Troponin 0.017 and NT proBNP of 3,260. His alkaline phosphatase is 416. His EKG revealed atrial fibrillation with nonspecific ST-T wave changes at a rate of 115. His chest x-ray revealed mild cardiomegaly with possible minimal heart failure. IMPRESSION: 1. Recurrent episode of abdominal pain with diarrhea and known history of neuroendocrine metastatic carcinoma. 2. Symptoms of dyspnea, probably a combination of exacerbation of chronic obstructive pulmonary disease and mild fluid overload. 3. History of chronic persistent atrial fibrillation, not anticoagulated at this point. 4. History of hyperlipidemia. 5. Hypertension. 6. Hyperlipidemia. 7. Worsening renal function. RECOMMENDATION: I will start him on Eliquis. I will cut down the dose of his IV Lasix. I will obtain an echocardiogram with Doppler. Will await the input of Dr. Plata and Oncology regarding his prognosis. Will follow his renal function closely and depending on his progress, further recommendation will be made. Thank you for this consult. Will follow with you. MMODL / IJN: [id number] /
[2019-05-15 11:56] LABS: Glucose,Whole Blood 202 mg/dL (75-99)
[2019-05-15 17:12] LABS: Glucose,Whole Blood 259 mg/dL (75-99)
--- NOTE | 2019-05-15 17:43 | P.CONS ---
History of Present Illness - Reason for Consult Consult date: 05/15/19 pnet Requesting physician: Vic Low - Chief Complaint SOB/NINO - History of Present Illness Mr. Guan is a very pleasant 83-year-old male patient of primary care physician Dr. Hilario. He was referred to Dr. Plata after he had a CT scan of the abdomen and pelvis done for painful hepatomegaly. Study revealed a heterogenous liver with multiple masses replacing normal tissue as well as a very large pancreatic head mass. Patient had been having nausea and vomiting after oral intake for about 6 months along with watery diarrhea 1 year. He was diagnosed with pancreatic enzymatic insufficiency over a year ago and started on Creon. Patient has lost 40 pounds in the last 6 months, progressive weakness, loss of stamina. Patient saw Dr. Plata on 04/27. On 05/05 he had a core biopsy of the liver 2, pathology revealed neuroendocrine tumor of pancreatic origin. Patient due to follow up with Dr. Plata this week for the pathology results as well as plan of care. 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 Patient has a 25 year pack history of smoking. Patient is currently admitted with progressive shortness of breath, he is currently being treated for congestive heart failure and COPD exacerbation. When asked, patient states he certainly feels much better than he did on admission, he is feeling that he is going to be oxygen. Review of Systems 14 point review of systems is negative except as stated in HPI Past Medical History Past Medical History: Atrial Fibrillation, Cancer, Heart Failure, CVA/TIA, Diabetes Mellitus, Hyperlipidemia, Hypertension, Liver Disease, Osteoarthritis (OA), Skin Disorder Additional Past Medical History / Comment(s): hepatitis when he was 18 years old, in 1970's had pancreas problems enzyme deficient, skin itching History of Any Multi-Drug Resistant Organisms: None Reported Past Surgical History: Heart Catheterization With Stent, Orthopedic Surgery, Pacemaker Additional Past Surgical History / Comment(s): pacemaker 2003, replaced pacemaker in 2010, liver biospy, left kneecap removed in , one testicle removed Past Anesthesia/Blood Transfusion Reactions: No Reported Reaction Date of Last Stent Placement:: 2014 Type of Cardiac Device: Permanent Pacemaker Device Placement Date:: 2010 Past Psychological History: No Psychological Hx Reported Smoking Status: Current some day smoker Past Alcohol Use History: None Reported Past Drug Use History: None Reported Additional Drug Use History / Comment(s): patient states he smokes 1-2 cigarettes per day. been smoking since he was 16 years old - Past Family History Mother Family Medical History: Cancer, Diabetes Mellitus Additional Family Medical History / Comment(s): colon cancer Father Family Medical History: Diabetes Mellitus Additional Family Medical History / Comment(s): emphysema Medications and Allergies Home Medications Medication Instructions Recorded Confirmed Type Carvedilol [Coreg] 25 mg PO BID 09/16/18 05/14/19 History Dicyclomine [Bentyl] 20 mg PO QID 09/16/18 05/14/19 History Lipase/Protease/Amylase [Creon Dr 3 cap PO ACHS 09/16/18 05/14/19 History 24,000 Units Capsule] Losartan [Cozaar] 25 mg PO DAILY 09/16/18 05/14/19 History Potassium Chloride ER [K-Dur 20] 20 meq PO DAILY 09/16/18 05/14/19 History Simvastatin [Zocor] 40 mg PO HS 09/16/18 05/14/19 History Vit C/E/Zn/Coppr/Lutein/Zeaxan 1 cap PO BID 09/16/18 05/14/19 History [Preservision Areds 2 Softgel] glipiZIDE XL [Glucotrol XL] 2.5 mg PO DAILY 09/16/18 05/14/19 History Nitroglycerin 0.4 mg SL Q5M PRN 05/01/19 05/14/19 History Ondansetron HCl [Zofran] 8 mg PO Q8H PRN 05/09/19 05/14/19 History Furosemide [Lasix] 40 mg PO DAILY #0 05/11/19 05/14/19 Rx Omeprazole 20 mg PO BID #30 05/11/19 05/14/19 Rx Multivit-Min/FA/Lycopen/Lutein 1 tab PO DAILY 05/14/19 05/14/19 History [Centrum Silver Men Tablet] Allergies Allergy/AdvReac Type Severity Reaction Status Date / Time CLOVER Inhibitors Allergy Anaphylaxis Verified 05/14/19 12:44 amlodipine [From Norvasc] Allergy Rash/Hives Verified 05/14/19 12:44 cephalexin [From Keflex] Allergy Unknown Verified 05/14/19 12:44 Sulfa (Sulfonamide Allergy Unknown Verified 05/14/19 12:44 Antibiotics) valsartan [From Diovan] Allergy Anaphylaxis Verified 05/14/19 12:44 Physical Exam Vitals: Vital Signs Temp Pulse Pulse Resp BP Pulse Ox 05/15/19 15:49 88 05/15/19 15:38 86 05/15/19 15:20 97.6 F 100 16 159/74 98 05/15/19 11:46 100 05/15/19 11:35 92 05/15/19 11:15 86 18 142/70 96 05/15/19 08:30 98.4 F 78 18 107/55 96 05/15/19 08:04 96 05/15/19 07:45 100 94 L 05/15/19 04:17 102 H 05/15/19 04:05 107 H 93 L 05/15/19 03:02 98.1 F 97 18 128/63 97 05/14/19 23:48 88 05/14/19 23:34 87 05/14/19 23:23 95 18 128/62 95 05/14/19 19:45 98.2 F 97 18 126/61 96 05/14/19 19:24 104 H 05/14/19 19:09 111 H 98 Intake and Output 05/15/19 05/15/19 05/15/19 06:59 14:59 22:59 Output Total 200 Balance -200 Output: Urine 200 Other: # Voids 1 1 # Bowel Movements 1 Weight 65.1 kg 65.1 kg - Constitutional General appearance: average body habitus, cooperative, no acute distress - EENT Eyes: anicteric sclerae, EOMI ENT: hearing grossly normal, normal oropharynx - Neck Neck: no lymphadenopathy - Respiratory Respiratory: bilateral: diminished, wheezing - Cardiovascular Rhythm: irregularly irregular Heart sounds: normal: S1, S2 leg Peripheral Edema: bilateral: Trace - Gastrointestinal General gastrointestinal: no absent bowel sounds, no decreased bowel sounds, distended, hepatomegaly, no hyperactive bowel sounds, normal bowel sounds, no organomegaly, no rigid, no scaphoid, soft, no splenomegaly, tenderness, no umbilical hernia, no ventral hernia - Integumentary Integumentary: normal - Neurologic Neurologic: CNII-XII intact - Musculoskeletal Musculoskeletal: generalized weakness, strength equal bilaterally - Psychiatric Psychiatric: A&O x's 3, appropriate affect, intact judgment & insight Results CBC & Chem 7: 05/14/19 13:00 05/15/19 05:35 Labs: Abnormal Lab Results - Last 24 Hours (Table) 05/14/19 05/15/19 05/15/19 Range/Units 20:41 05:35 06:18 Sodium 136 L (137-145) mmol/L BUN 62 H (9-20) mg/dL Creatinine 1.34 H (0.66-1.25) mg/dL Glucose 212 H (74-99) mg/dL POC Glucose (mg/dL) 161 H 218 H (75-99) mg/dL Calcium 7.3 L (8.4-10.2) mg/dL 05/15/19 05/15/19 Range/Units 11:46 17:02 Sodium (137-145) mmol/L BUN (9-20) mg/dL Creatinine (0.66-1.25) mg/dL Glucose (74-99) mg/dL POC Glucose (mg/dL) 202 H 259 H (75-99) mg/dL Calcium (8.4-10.2) mg/dL Microbiology - Last 24 Hours (Table) 05/14/19 13:00 Blood Culture - Preliminary Blood No Growth after 24 hours Assessment and Plan (1) Primary pancreatic neuroendocrine tumor Narrative/Plan: Newly diagnosed. Case was reviewed with attending oncologist. Discussed the diagnosis of metastatic PNET with the patient and his son. Pancreatic neuroendocrine tumors typically are slow growing, and can be treated for quite some time with an oral kyleigh and monthly injection (Afinitor and Sandostatin). Patient is interested in trying treatment for the same. [facility] I will begin this process for them. Patient was supposed to see Dr. Plata 05/19 at 11:15, keep this appointment for now. We will work on getting the medications ordered. We should have everything ready so that all can be done/initiated at that visit on 05/19. All of patient and his son's questions were answered to the best of my ability. Current Visit: Yes Status: Acute Priority: High Code(s): D3A.8 - OTHER BENIGN NEUROENDOCRINE TUMORS SNOMED Code(s): 129064232 Plan: Agree with treatment of congestive heart failure and COPD. Encouraged patient to follow with his specialist as directed.
[2019-05-15 20:18] LABS: Glucose,Whole Blood 238 mg/dL (75-99)
[2019-05-15] MEDS: ATORVASTATIN 20 MG TAB PO SCH (20:26)
--- NOTE | 2019-05-15 22:17 | CONS ---
CONSULTATION DATE OF DICTATION: 05/15/2019 REASON FOR CONSULTATION: Neuroendocrine tumor on recent liver biopsy. HISTORY OF PRESENT ILLNESS: The patient is an 83-year-old pleasant white male known to me from his office visits. He was last seen in the office about 6 months ago. He was initially seen in the office in March of 2018 as a part of evaluation of chronic diarrhea, and workup at that time including a CT scan of the abdomen was unremarkable. Stool studies showed a decrease in fecal elastase consistent with chronic pancreatic insufficiency. The patient was subsequently started on Creon and the diarrhea gradually improved. However, he states that for the last 6 months he has been having worsening diarrhea and progressive weight loss of almost 40 pounds. He was complaining of some abdominal pain and he was admitted to [facility] 2 weeks ago. He had a CT scan done that showed a liver mass. Subsequently he was evaluated by Dr. Plata on an outpatient basis and had a liver biopsy performed on May 05 , pathology of which revealed neuroendocrine tumor of pancreatic origin. The patient was scheduled to see Dr. Plata. In the meantime, because of worsening diarrhea he was admitted to the hospital for further evaluation. He was started on Sandostatin subcutaneously by Dr. Yates yesterday and his diarrhea has significantly improved. He feels much better. He reports no abdominal pain. No nausea or vomiting. PAST MEDICAL HISTORY: His past medical history is significant for coronary artery disease, degenerative joint disease, atrial fibrillation, congestive heart failure, diabetes mellitus, CVA in the past, hyperlipidemia, hypertension. PAST SURGICAL HISTORY: 1. Cardiac catheterization. 2. Pacemaker implantation. 3. Left knee surgery. 4. Recent liver biopsy. FAMILY HISTORY: Mother had diabetes mellitus. Father had emphysema and diabetes mellitus. MEDICATIONS: Medications at home include: 1. Coreg. 2. Bentyl. 3. Creon. 4. Cozaar. 5. Zocor. 6. Nitroglycerin. 7. Glucotrol. 8. Zofran. 9. Lasix. 10.Multivitamin. ALLERGIES: 1. AMLODIPINE. 2. CLOVER INHIBITORS. 3. SULFA. 4. KEFLEX. 5. DIOVAN. SOCIAL HISTORY: No smoking. No alcohol use. FAMILY HISTORY: Unremarkable. REVIEW OF SYSTEMS: CARDIOPULMONARY: He denies any chest pain or shortness of breath. GENITOURINARY: He denies any dysuria or hematuria. MUSCULOSKELETAL: Unremarkable. SKIN: Unremarkable. ENDOCRINE: Unremarkable. PSYCHIATRIC: Unremarkable. NEUROLOGY: Unremarkable. ENT/VISION: Unremarkable. CONSTITUTIONAL: Weight loss of 30 pounds in the last 6 months. HEMATOLOGY: Unremarkable. GI: As mentioned above. PHYSICAL EXAMINATION: He appears comfortable. No apparent distress. Vital signs are stable. Blood pressure is 132/86, pulse rate 100, temperature 97.6. HEENT examination unremarkable. Conjunctivae pink. Sclerae anicteric. Oral cavity no lesions. NECK: No JVD or lymph node enlargement. CHEST: Clear to auscultation. HEART: Regular rate and rhythm. ABDOMEN: Soft. Bowel sounds are positive. No organomegaly. EXTREMITIES: No pedal edema. SKIN: No rashes. NEUROLOGIC: Alert and oriented x3. No focal deficits. LABS: Labs from today show WBC 6.4, hemoglobin 10.1, platelets normal. Basic metabolic panel is within normal limits. BUN is 57 and creatinine 1.36. IMPRESSION: 1. Newly diagnosed neuroendocrine tumor of pancreatic origin on liver biopsy that was performed for liver mass 2 weeks [address] Plata. 2. Chronic diarrhea almost 2 years' duration; in the past was diagnosed with chronic pancreatic insufficiency based on stool results and has been on pancreatic enzyme supplements since then. However, recently chronic diarrhea could be contributing to the metastatic neuroendocrine tumor. Presently on Sandostatin 100 mg subcutaneously q.8 hours and diarrhea has significantly improved. 3. History of diabetes mellitus and hypertension. 4. Progressive weight loss. RECOMMENDATIONS: 1. Await oncology consultation. 2. Continue with Sandostatin subcutaneously every 8 hours. 3. Continue with pancreatic enzyme supplements. 4. The patient was advised to follow up in the office following discharge from the hospital in 2 weeks. Thank you for this consultation. MMODL / IJN: [id number] /
--- NOTE | 2019-05-16 00:23 | P.PN ---
Progress Note - Text Progress Note Date: 05/15/19 Chief Complaint: Shortness of breath congested History of presenting complaint: This is a pleasant 83-year-old patient of Dr. Vic Hialrio. Chronic stable medical conditions include diabetes mellitus type 2, hyperlipidemia, hypertension, osteoarthritis. Patient is foldable liver mass and recently a liver biopsy done. But his come back showing metastatic neuroendocrine carcinoma. Patient presented with noted below symptoms. Congested in the chest. Short of breath and wheezing. Patient has a long-standing watery diarrhea. Some abdominal pain. Patient has been followed by oncology and GI. Patient is . Has been getting weak and tired. Using a walker. Appetite is gone down. No fever no chills. Wheezing is present. Patient has been smoking for many years. The down to a few cigarettes a day. 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 Has been under, with improvement. Breathing is much better. Sitting upon a chair. Less congested. Diarrhea minimal. Son At the Bedside. Review of systems: Was done for constitutional, cardiovascular, GI, pulmonary. relevant finding as above Active Medications Albuterol/Ipratropium (Duoneb 0.5 Mg-3 Mg/3 Ml Soln) 3 ml INHALATION RT-Q4H [facility] Last Admin: 05/15/19 19:09 Dose: 3 ml Documented by: Apixaban (Eliquis) 5 mg PO BID [facility] Last Admin: 05/15/19 20:26 Dose: 5 mg Documented by: Atorvastatin Calcium (Lipitor) 20 mg PO HS [facility] Last Admin: 05/15/19 20:26 Dose: 20 mg Documented by: Budesonide (Pulmicort) 1 mg INHALATION RT-BID [facility] Last Admin: 05/15/19 19:09 Dose: 1 mg Documented by: Calcium Carbonate/Glycine (Tums Liquid) 500 mg PO TID-W/MEALS [facility] Last Admin: 05/15/19 17:28 Dose: 500 mg Documented by: Carvedilol (Coreg) 25 mg PO AC-BID [facility] Last Admin: 05/15/19 17:26 Dose: 25 mg Documented by: Dicyclomine HCl (Bentyl) 20 mg PO QID [facility] Last Admin: 05/15/19 20:26 Dose: 20 mg Documented by: Furosemide (Lasix) 40 mg IV DAILY [facility] Last Admin: 05/15/19 08:52 Dose: 40 mg Documented by: Glipizide (Glucotrol) 2.5 mg PO DAILY [facility] Last Admin: 05/15/19 08:51 Dose: 2.5 mg Documented by: Guaifenesin (Mucinex) 1,200 mg PO Q12HR [facility] Last Admin: 05/15/19 20:26 Dose: 1,200 mg Documented by: Insulin Aspart (Novolog) 0 unit SQ [facility]; Protocol Last Admin: 05/15/19 20:26 Dose: 3 unit Documented by: Losartan Potassium (Cozaar) 25 mg PO DAILY [facility] Last Admin: 05/15/19 08:51 Dose: 25 mg Documented by: Methylprednisolone Sodium Succinate (Solu-Medrol) 40 mg IV Q8H [facility] Last Admin: 05/15/19 20:34 Dose: 40 mg Documented by: Multivitamins (Theragran) 1 each PO DAILY [facility] Last Admin: 05/15/19 08:51 Dose: 1 each Documented by: Multivitamins/Minerals (Ivite) 1 each PO BID [facility] Last Admin: 05/15/19 20:26 Dose: 1 each Documented by: Nitroglycerin (Nitrostat) 0.4 mg SUBLINGUAL Q5M PRN PRN Reason: Chest Pain Creon Dr (Lipase/Protease/Amylase) 24 ,000 Units Capsule 3 cap PO [facility] Last Admin: 05/15/19 20:26 Dose: 3 cap Documented by: Octreotide Acetate (Sandostatin) 100 mcg SQ Q8H [facility] Last Admin: 05/15/19 20:40 Dose: 100 mcg Documented by: Ondansetron HCl (Zofran) 8 mg PO Q8H PRN PRN Reason: Nausea Pantoprazole Sodium (Protonix) 40 mg PO BID [facility] Last Admin: 05/15/19 20:26 Dose: 40 mg Documented by: Potassium Chloride (K-Dur 20) 20 meq PO DAILY [facility] Last Admin: 05/15/19 08:51 Dose: 20 meq Documented by: Physical examination: VITAL SIGNS: 98.4, 78, 18, 107/55, 96% on 4 L GENERAL: Sitting up in a chair, looking much improved EYES: Pupils equal. Conjunctiva normal. HEENT: External appearance of nose and ears normal, oral cavity grossly normal. NECK: JVD unable to assess masses not palpable. HEART: Heart sounds irregular, no edema. LUNGS: Respiratory rate improved, decreased breath sounds prolonged expiration and decreased crackles. ABDOMEN: Soft, mild midabdominal tenderness, no guarding or rigidity, liver spleen not palpable, no masses palpable. PSYCH: Alert and oriented x3; mood and affect better INVESTIGATIONS, reviewed in the clinical context: Potassium 3.8 bun 62 crit 1.34 2-D echo-concentric left medical hypertrophy, EF 45-50% somewhat hypokinetic [place] ri[place]. Previous testing White count 16.4 hemoglobin 15.1 potassium 2.9 bun 57 creatinine 1.36 AST 60 02/20/2084 alk phos 416 proBNP 3260 albumin 2.8 EKG tracing personally reviewed by me-atrial fibrillation rate around 1:15 Chest x-ray film personally reviewed by me-some cardiomegaly, venous prominence, left pleural effusion liver mass biopsy showing metastatic neuroendocrine carcinoma Patient's creatinine was 0.76 in September of this year. Assessment: -This is a patient has long-standing diarrhea abdominal pain, some respiratory s ymptoms with liver biopsy showing metastatic neuroendocrine carcinoma. - Possible carcinoid. Could respond to Sandostatin -Acute COPD exacerbation in a current smoker, some improvement -Chronic nicotine dependence patient cigarette smoker -Possible acute on chronic congestive heart failure, from systolic and diastolic dysfunction from underlying coronary artery disease, slow to respond -Persistent atrial flutter fibrillation with uncontrolled -Chronic Coumadin monitoring -Hyperlipidemia -Essential hypertension -Diabetes mellitus type 2 on oral hypoglycemic - acute kidney injury likely secondary to prerenal from persistent diarrhea decreased oral intake -Coronary artery disease, with stent Plan: Continue with bronchodilator steroids. Patient to continue with Sandostatin. Care was discussed with the patient and son.. Repeat labs in the morning.
[2019-05-16] MEDS: IPRATROPIUM-ALBUTEROL 3 ML NEB INHALATION SCH ×6 (00:54→19:09)
[2019-05-16 06:23] LABS: Basophils % (A) 0 %; Eosinophils % (A) 0 %; HCT 39.4 % (39.0-53.0); Lymphocytes # (A) 1.2 k/uL (1.0-4.8); Lymphocytes % (A) 10 %; MCH 33.4 pg (25.0-35.0); MCHC 32.9 g/dL (31.0-37.0); MCV 101.5 fL (80.0-100.0); Macrocytosis Slight; Mean Platelet Volume 7.6; Monocytes # (A) 0.7 k/uL (0-1.0); Monocytes % (A) 6 %; Neutrophils # (A) 10.2 k/uL (1.3-7.7); Neutrophils % (A) 82 %; Platelet Count 253 k/uL (150-450); RBC 3.88 m/uL (4.30-5.90); RDW 13.2 % (11.5-15.5); WBC 12.4 k/uL (3.8-10.6)
[2019-05-16 06:26] LABS: Glucose,Whole Blood 186 mg/dL (75-99)
[2019-05-16] MEDS: CALCIUM CARBONATE LIQUID 500 MG/5 ML CUP PO SCH ×3 (06:31→16:54)
[2019-05-16] MEDS: OCTREOTIDE 100 MCG/ML INJ SQ SCH ×3 (06:31→20:43)
[2019-05-16] MEDS: methylPREDNISolone SOD SUCCI 40 MG/ML 1 ML VIAL IV SCH ×3 (06:31→20:28)
[2019-05-16] MEDS: CARVEDILOL 12.5 MG TAB PO SCH ×2 (06:31→16:54)
[2019-05-16] MEDS: INSULIN ASPART (NovoLOG) 100 UNIT/ML VIAL SQ SCH ×4 (06:32→20:28)
[2019-05-16 06:35] LABS: Calcium 8.3 mg/dL (8.4-10.2); Potassium 4.1 mmol/L (3.5-5.1)
[2019-05-16] MEDS: POTASSIUM CHLORIDE ER 20 MEQ TAB.ER PO SCH (08:32)
[2019-05-16] MEDS: FUROSEMIDE 10 MG/ML 4 ML VIAL IV SCH (08:32)
[2019-05-16] MEDS: MULTIVITAMINS, THERA 1 EACH TAB PO SCH (08:33)
[2019-05-16] MEDS: LOSARTAN 25 MG TAB PO SCH (08:33)
[2019-05-16] MEDS: APIXABAN 5 MG TAB PO SCH ×2 (08:33→20:28)
[2019-05-16] MEDS: DICYCLOMINE 20 MG TAB PO SCH ×4 (08:33→20:27)
[2019-05-16] MEDS: PANTOPRAZOLE 40 MG TABLET PO SCH ×2 (08:34→20:28)
[2019-05-16] MEDS: VIT A,C & E-LUTEIN-MINERALS 1 EACH TAB PO SCH ×2 (08:34→20:29)
[2019-05-16] MEDS: guaiFENesin 600 MG TABLET.ER PO SCH ×2 (08:36→20:27)
[2019-05-16] MEDS: BUDESONIDE 1 MG/2 ML NEBU INHALATION SCH ×2 (08:48→19:09)
--- NOTE | 2019-05-16 10:48 | P.PN ---
Subjective Progress Note Date: 05/16/19 This pleasant 83-year-old gentleman who follows regularly in the office with Dr. Laughlin. He has a history of chronic atrial fibrillation, initially presented to the hospital with symptoms of abdominal discomfort, underwent a biopsy of the liver because of the mass and was found to have metastatic differentiated neuroendocrine carcinoma and is following with Dr. Dunne as an outpatient. Patient has a history of coronary artery disease according to him, history of peripheral vascular disease, permanent pacemaker implantation. History of hyperlipidemia, diabetes, and hypertension. Patient w as seen and examined today, overall he is feeling well. Abdominal discomfort has improved. He is currently on Eliquis for anticoagulation. Blood pressure 132/70 with a heart rate in the 80s to 90s, 97% on 4 L of oxygen. White blood cell count 12.4, hemoglobin 13.0, platelet count 253. Sodium 136, potassium 4.1, BUN 62 and creatinine 1.2. Objective - Vital Signs Vital signs: Vital Signs Temp 96.5 F L 05/16/19 08:00 Pulse 86 05/16/19 09:09 Resp 16 05/16/19 08:00 BP 132/76 05/16/19 08:00 Pulse Ox 99 05/16/19 08:51 Intake & Output 05/15/19 05/16/19 05/16/19 18:59 06:59 18:59 Intake Total 120 Balance 120 Weight 65.1 kg 65.7 kg Intake: Oral 120 Other: # Voids 1 1 # Bowel Movements 1 - Exam PHYSICAL EXAMINATION: GENERAL: 83-year-old gentleman in no acute distress at the time of my examination HEENT: Head is atraumatic, normocephalic. Pupils equal, round. Sclera anicteric. Conjunctiva are clear. Mucous membranes of the mouth are moist. Neck is supple. There is no elevated jugular venous pressure. No carotid bruit is heard. HEART EXAMINATION: Heart S1 and S2 irregularly irregular a systolic murmur is heard CHEST EXAMINATION: Lungs are clear to auscultation and precussion. No chest wall tenderness is noted on palpation or with deep breathing. ABDOMEN: Soft, nontender. Bowel sounds are heard. No organomegaly noted. EXTREMITIES: 2+ peripheral pulses with no evidence of peripheral edema and no calf tenderness noted. NEUROLOGIC patient is awake, alert and oriented 3 . . - Labs CBC & Chem 7: 05/16/19 05:34 05/16/19 05:34 Labs: Abnormal Lab Results - Last 24 Hours (Table) 05/15/19 05/15/19 05/15/19 Range/Units 11:46 17:02 20:17 WBC (3.8-10.6) k/uL RBC (4.30-5.90) m/uL MCV (80.0-100.0) fL Neutrophils # (1.3-7.7) k/uL Sodium (137-145) mmol/L BUN (9-20) mg/dL Glucose (74-99) mg/dL POC Glucose (mg/dL) 202 H 259 H 238 H (75-99) mg/dL Calcium (8.4-10.2) mg/dL 05/16/19 05/16/19 05/16/19 Range/Units 05:34 05:34 06:24 WBC 12.4 H (3.8-10.6) k/uL RBC 3.88 L (4.30-5.90) m/uL MCV 101.5 H (80.0-100.0) fL Neutrophils # 10.2 H (1.3-7.7) k/uL Sodium 136 L (137-145) mmol/L BUN 62 H (9-20) mg/dL Glucose 167 H (74-99) mg/dL POC Glucose (mg/dL) 186 H (75-99) mg/dL Calcium 8.3 L (8.4-10.2) mg/dL Microbiology - Last 24 Hours (Table) 05/14/19 13:00 Blood Culture - Preliminary Blood No Growth after 24 hours Assessment and Plan Plan: Assessment and plan #1 recurrent episodes of abdominal pain with associated diarrhea, known history of neuroendocrine metastatic carcinoma #2 symptoms of dyspnea, likely accommodation of COPD exacerbation and mild fluid overload #3 chronic persistent atrial fibrillation, on Eliquis for anticoagulation #4 hyperlipidemia #5 hypertension Plan From cardiology's perspective, patient may be able to be discharged home today. Follow-up appointment in the office post discharge. DNP note has been reviewed, I agree with a documented findings and plan of care. Patient was seen and examined.
[2019-05-16 11:44] LABS: Glucose,Whole Blood 171 mg/dL (75-99)
[2019-05-16] MEDS ORDERED: FUROSEMIDE 40 MG TAB PO SCH (16:00)
[2019-05-16 16:33] LABS: Glucose,Whole Blood 131 mg/dL (75-99)
--- NOTE | 2019-05-16 19:35 | PN ---
PROGRESS NOTE DATE OF DICTATION: May 16, 2019 Patient is an 83-year-old pleasant white male admitted to the hospital with diarrhea and not feeling well for the last few days duration. He was recently diagnosed with metastatic neuroendocrine tumor on the liver biopsy performed a week ago. He is scheduled to see Dr. Plata late this week. In the meantime, because of the severe diarrhea, he was started on Sandostatin 50 mg subcu every 8 hours and his diarrhea has completely resolved. The patient is feeling much better. He denies any symptoms today. PHYSICAL EXAMINATION: Appears comfortable, no apparent distress. VITAL SIGNS: Stable. Blood pressure is 140/65, pulse 85, temperature 98. HEENT examination unremarkable. Conjunctivae pink. Sclerae anicteric. Oral cavity no lesions. NECK: No JVD or lymph node enlargement. The chest was clear to auscultation. HEART: Regular rate and rhythm. ABDOMEN: Soft. Bowel sounds are positive. No organomegaly. EXTREMITIES: No pedal edema. SKIN no rashes. NEUROLOGIC: Alert and oriented x3. No focal deficits. LABS: WBC 12.4, hemoglobin 13. Platelets normal. Basic metabolic panel is within normal limits. BUN 62, creatinine 1.24. IMPRESSION: 1. Metastatic neuroendocrine tumor of pancreatic origin diagnosed on recent liver biopsy done last week. Patient followup with Dr. Plata. 2. History of chronic diarrhea of several months' duration. He was started on a Sandostatin subcu and diarrhea has resolved. 3. History of chronic pancreatic insufficiency diagnosed a year and a half ago. Remains on pancreatic enzyme supplements. RECOMMENDATIONS: 1. He was advised to continue with Sandostatin 50 mg q.8 hours. 2. Continue with pancreatic enzyme supplements. 3. The patient has an appointment to see me on an outpatient basis next week. Thank you for this consultation. MMODL / IJN: [id number] /
[2019-05-16 20:21] LABS: Glucose,Whole Blood 144 mg/dL (75-99)
[2019-05-16] MEDS: ATORVASTATIN 20 MG TAB PO SCH (20:28)
--- NOTE | 2019-05-16 23:50 | P.PN ---
Progress Note - Text Progress Note Date: 05/16/19 Chief Complaint: Shortness of breath congested History of presenting complaint: This is a pleasant 83-year-old patient of Dr. Vic Hilario. Chronic stable medical conditions include diabetes mellitus type 2, hyperlipidemia, hypertension, osteoarthritis. Patient is foldable liver mass and recently a liver biopsy done. But his come back showing metastatic neuroendocrine carcinoma. Patient presented with noted below symptoms. Congested in the chest. Short of breath and wheezing. Patient has a long-standing watery diarrhea. Some abdominal pain. Patient has been followed by oncology and GI. Patient is . Has been getting weak and tired. Using a walker. Appetite is gone down. No fever no chills. Wheezing is present. Patient has been smoking for many years. The down to a few cigarettes a day. 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 Started on Sandostatin. Responded well. Today-much better. No diarrhea. Previously stable. Used to walker to take a few steps. and daughter the bedside. No chest congestion. Appetite fair Review of systems: Was done for constitutional, cardiovascular, GI, pulmonary. relevant finding as above Active Medications Albuterol/Ipratropium (Duoneb 0.5 Mg-3 Mg/3 Ml Soln) 3 ml INHALATION RT-Q4H [facility] Last Admin: 05/16/19 19:09 Dose: 3 ml Documented by: Apixaban (Eliquis) 5 mg PO BID [facility] Last Admin: 05/16/19 20:28 Dose: 5 mg Documented by: Atorvastatin Calcium (Lipitor) 20 mg PO HS [facility] Last Admin: 05/16/19 20:28 Dose: 20 mg Documented by: Budesonide (Pulmicort) 1 mg INHALATION RT-BID [facility] Last Admin: 05/16/19 19:09 Dose: 1 mg Documented by: Calcium Carbonate/Glycine (Tums Liquid) 500 mg PO TID-W/MEALS [facility] Last Admin: 05/16/19 16:54 Dose: 500 mg Documented by: Carvedilol (Coreg) 25 mg PO AC-BID [facility] Last Admin: 05/16/19 16:54 Dose: 25 mg Documented by: Dicyclomine HCl (Bentyl) 20 mg PO QID [facility] Last Admin: 05/16/19 20:27 Dose: 20 mg Documented by: Furosemide (Lasix) 40 mg PO BID@0900,1600 [facility] Last Admin: 05/16/19 16:54 Dose: 40 mg Documented by: Glipizide (Glucotrol) 2.5 mg PO DAILY [facility] Last Admin: 05/16/19 08:34 Dose: 2.5 mg Documented by: Guaifenesin (Mucinex) 1,200 mg PO Q12HR [facility] Last Admin: 05/16/19 20:27 Dose: 1,200 mg Documented by: Insulin Aspart (Novolog) 0 unit SQ [facility]; Protocol Last Admin: 05/16/19 20:28 Dose: 1 unit Documented by: Losartan Potassium (Cozaar) 25 mg PO DAILY [facility] Last Admin: 05/16/19 08:33 Dose: 25 mg Documented by: Methylprednisolone Sodium Succinate (Solu-Medrol) 40 mg IV Q8H [facility] Last Admin: 05/16/19 20:28 Dose: 40 mg Documented by: Multivitamins (Theragran) 1 each PO DAILY [facility] Last Admin: 05/16/19 08:33 Dose: 1 each Documented by: Multivitamins/Minerals (Ivite) 1 each PO BID [facility] Last Admin: 05/16/19 20:29 Dose: 1 each Documented by: Nitroglycerin (Nitrostat) 0.4 mg SUBLINGUAL Q5M PRN PRN Reason: Chest Pain Creon Dr (Lipase/Protease/Amylase) 24 ,000 Units Capsule 3 cap PO [facility] Last Admin: 05/16/19 20:28 Dose: 3 cap Documented by: Octreotide Acetate (Sandostatin) 100 mcg SQ Q8H [facility] Last Admin: 05/16/19 20:43 Dose: 100 mcg Documented by: Ondansetron HCl (Zofran) 8 mg PO Q8H PRN PRN Reason: Nausea Last Admin: 05/16/19 22:23 Dose: 8 mg Documented by: Pantoprazole Sodium (Protonix) 40 mg PO BID [facility] Last Admin: 05/16/19 20:28 Dose: 40 mg Documented by: Potassium Chloride (K-Dur 20) 20 meq PO DAILY [facility] Last Admin: 05/16/19 08:32 Dose: 20 meq Documented by: Physical examination: VITAL SIGNS: 96.5, 83, 16, 132/76, 97% on 4 L GENERAL: Sitting up in a chair, cheerful EYES: Pupils equal. Conjunctiva normal. HEENT: External appearance of nose and ears normal, oral cavity grossly normal. NECK: JVD unable to assess masses not palpable. HEART: Heart sounds irregular, no edema. LUNGS: Respiratory rate improved, decreased breath sounds ABDOMEN: Soft, mild midabdominal tenderness, no guarding or rigidity, liver spleen not palpable, no masses palpable. PSYCH: Alert and oriented x3; mood and affect better INVESTIGATIONS, reviewed in the clinical context: White count 12.4 hemoglobin 13 progression 4.1 crit 1.24 2-D echo-concentric left medical hypertrophy, EF 45-50% somewhat hypokinetic [place]. Previous testing White count 16.4 hemoglobin 15.1 potassium 2.9 bun 57 creatinine 1.36 AST 60 02/20/2084 alk phos 416 proBNP 3260 albumin 2.8 EKG tracing personally reviewed by me-atrial fibrillation rate around 1:15 Chest x-ray film personally reviewed by me-some cardiomegaly, venous prominence, left pleural effusion liver mass biopsy showing metastatic neuroendocrine carcinoma Patient's creatinine was 0.76 in September of this year. Assessment: -This is a patient has long-standing diarrhea abdominal pain, some respiratory symptoms with liver biopsy showing metastatic neuroendocrine carcinoma. - Possible carcinoid. Has responded well to Sandostatin. Diarrhea resolved. -Acute COPD exacerbation in a current smoker, much improved -Chronic nicotine dependence patient cigarette smoker -Possible acute on chronic congestive heart failure, from systolic and diastolic dysfunction from underlying coronary artery disease, much improved -Persistent atrial flutter fibrillation with uncontrolled, in the 120s today -Chronic Coumadin monitoring -Hyperlipidemia -Essential hypertension -Diabetes mellitus type 2 on oral hypoglycemic - acute kidney injury likely secondary to prerenal from persistent diarrhea decreased oral intake -Coronary artery disease, with stent Possible disposition: Home Plan: Discussed with Dr. Jessie Shah from GI. Also discussed with nathaniel from oncology. Patient will remain on Sandostatin upon her discharge. 10 and patient follows up with oncology they will follow up or process for obtaining Sandostatin. Also discussed with the patient and and the daughter. Questions were answered. Total time spent today was about 45% with over 30 minutes of discussion. DC Solu-Medrol switched to oral prednisone. Decreased DuoNeb to 3 times a day. Possible looking for discharge in next 24 hours
[2019-05-17] MEDS: ONDANSETRON 4 MG/2 ML VIAL IVP PRN ×2 (01:07→08:08)
[2019-05-17 01:24] LABS: HCT 30.1 % (39.0-53.0); MCH 33.4 pg (25.0-35.0); MCHC 32.9 g/dL (31.0-37.0); MCV 101.5 fL (80.0-100.0); Macrocytosis Slight; Mean Platelet Volume 7.6; Platelet Count 321 k/uL (150-450); RBC 2.97 m/uL (4.30-5.90); RDW 13.5 % (11.5-15.5); WBC 11.8 k/uL (3.8-10.6)
[2019-05-17 01:28] LABS: HGB 9.9 gm/dL (13.0-17.5)
[2019-05-17 02:01] LABS: Glucose,Whole Blood 246 mg/dL (75-99)
[2019-05-17] MEDS ORDERED: SODIUM CHLORIDE 0.9% 500 ML 500 ML IV ONE (02:09)
[2019-05-17 02:30] LABS: Glucose,Whole Blood 211 mg/dL (75-99)
[2019-05-17] MEDS: SODIUM CHLORIDE 0.9% 1,000 ML IV SCH (03:59)
[2019-05-17 05:15] LABS: Appearance,Urine Clear (Clear); Bilirubin,Urine Negative (Negative); Blood,Urine Negative (Negative); Color,Urine Yellow; Glucose,Urine (UA) Negative (Negative); Ketones,Urine Negative (Negative); Leukocyte Esterase,Urine Negative (Negative); Nitrite,Urine Negative (Negative); PH, Urine 5.5 (5.0-8.0); Protein,Urine Negative (Negative); Specific Gravity,Urine 1.017 (1.001-1.035); Urobilinogen,Urine <2.0 mg/dL (<2.0)
[2019-05-17 06:22] LABS: Glucose,Whole Blood 207 mg/dL (75-99)
[2019-05-17] MEDS: CARVEDILOL 12.5 MG TAB PO SCH (06:59)
[2019-05-17] MEDS: IPRATROPIUM-ALBUTEROL 3 ML NEB INHALATION SCH ×3 (07:04→19:27)
[2019-05-17] MEDS: BUDESONIDE 1 MG/2 ML NEBU INHALATION SCH ×2 (07:04→19:27)
[2019-05-17] MEDS: INSULIN ASPART (NovoLOG) 100 UNIT/ML VIAL SQ SCH ×3 (07:05→18:02)
--- NOTE | 2019-05-17 07:54 | PN ---
PROGRESS NOTE Mr. Guan is an 83-year-old male with a history of chronic persistent atrial fibrillation who was recently diagnosed with metastatic neuroendocrine carcinoma who yesterday was transferred to the ICU after episode of nausea and vomiting of blood. He has continued to have some vomiting of blood. He dropped his hemoglobin. He continues to be in atrial fibrillation with slight rapid ventricular response. His blood pressure is borderline. He is denying any chest pain. He has abdominal pain. Mild dyspnea. No dizziness. He continues to be on Lipitor 20 mg daily. His Coreg and Cozaar were on hold because of his blood pressure. He was on furosemide 40 mg twice a day, Zofran, Sandostatin, Protonix and prednisone. PHYSICAL EXAMINATION: Blood pressure running in the 90s with a heart rate in the high 90s low 100s. LUNGS: With decreased air exchange no wheezes. Heart irregular, regular. S1, S2. No S3. No rub with a systolic murmur. ABDOMEN: Mild tenderness. Positive bowel sounds. EXTREMITIES: No edema. LAB DATA: Revealed a hemoglobin of 9.9 down form 15.1 on the first of this month. IMPRESSION: 1. Acute upper gastrointestinal bleeding. 2. Chronic persistent atrial fibrillation. 3. Moderately differentiated neuroendocrine carcinoma. 4. Mild cardiomyopathy. RECOMMENDATION: I will stop the Cozaar and Coreg and start low-dose metoprolol to control his ventricular response. I will cut down the dose of his Lasix. Will follow his renal function. Will await the input of Dr. Shah and depending on his progress, further recommendation will be made. MMODL / IJN: [id number] /
--- NOTE | 2019-05-17 08:26 | XR ---
EXAMINATION TYPE: XR chest 1V DATE OF EXAM: 05/17/2019 HISTORY: Shortness of breath. COMPARISON: 05/14/2019 TECHNIQUE: Single view of the chest is submitted. FINDINGS: Demonstrated are scattered senescent parenchymal change. Persistent basilar infiltrates and small effusions without significant change. The heart is stable. Hilar and mediastinal structures are within normal limits. Degenerative changes are seen of the dorsal spine. IMPRESSION: 1. Persistent basilar infiltrates and small effusions without significant change.
[2019-05-17] MEDS ORDERED: FUROSEMIDE 40 MG TAB PO SCH (09:00)
[2019-05-17 09:01] LABS: Basophils % (A) 0 %; Eosinophils % (A) 0 %; HCT 26.4 % (39.0-53.0); HGB 8.9 gm/dL (13.0-17.5); Lymphocytes # (A) 1.5 k/uL (1.0-4.8); Lymphocytes % (A) 10 %; MCH 33.9 pg (25.0-35.0); MCHC 33.6 g/dL (31.0-37.0); MCV 100.8 fL (80.0-100.0); Macrocytosis Slight; Mean Platelet Volume 7.5; Monocytes # (A) 0.5 k/uL (0-1.0); Monocytes % (A) 3 %; Neutrophils # (A) 12.5 k/uL (1.3-7.7); Neutrophils % (A) 85 %; Platelet Count 337 k/uL (150-450); RBC 2.62 m/uL (4.30-5.90); RDW 13.5 % (11.5-15.5); WBC 14.7 k/uL (3.8-10.6)
[2019-05-17 09:14] LABS: Calcium 8.6 mg/dL (8.4-10.2); Potassium 5.1 mmol/L (3.5-5.1)
[2019-05-17] MEDS: PANTOPRAZOLE 40 MG/10 ML VIAL IVP SCH ×2 (11:03→21:42)
[2019-05-17] MEDS: OCTREOTIDE 100 MCG/ML INJ SQ SCH (11:04)
[2019-05-17] MEDS: METOPROLOL TARTRATE 12.5 MG TAB PO SCH ×2 (11:05→21:28)
[2019-05-17] MEDS: CALCIUM CARBONATE LIQUID 500 MG/5 ML CUP PO SCH ×3 (11:05→18:02)
[2019-05-17] MEDS: DICYCLOMINE 20 MG TAB PO SCH ×4 (11:05→21:29)
[2019-05-17] MEDS: guaiFENesin 600 MG TABLET.ER PO SCH ×2 (11:05→21:28)
[2019-05-17] MEDS: VIT A,C & E-LUTEIN-MINERALS 1 EACH TAB PO SCH ×2 (11:06→21:29)
[2019-05-17] MEDS: predniSONE 20 MG TAB PO SCH (11:06)
[2019-05-17] MEDS: POTASSIUM CHLORIDE ER 20 MEQ TAB.ER PO SCH (11:06)
[2019-05-17] MEDS: MULTIVITAMINS, THERA 1 EACH TAB PO SCH (11:06)
--- NOTE | 2019-05-17 11:15 | P.CNPUL ---
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 Patient was also complaining of nausea vomiting, watery diarrhea for one year. 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 Patient had at least a 40 pound weight loss over the last 6 months. And the profound weakness. On 05/14/2019, patient was admitted with shortness of breath which was felt to be a component of diastolic congestive heart failure and COPD. Patient was seen by many consultants including card iology, and last night the patient was noted to have recurrent episodes of black tarry stools, and there was a significant drop in his hemoglobin. Arrangements were made to transfer the patient to the ICU, and I was asked to see him on consultation. Patient is now in the ICU, on 50% Ventimask, relatively hypotensive, hence I have ordered more fluids to be given, and the patient may require blood transfusion however his hemoglobin this morning is 8.9, and his hemoglobin on admission was 15.1. Patient was started on Protonix, GI was consulted, and at this point no plans to perform need immediate EGD, patient was on Eliquis just before he was admitted, and it is presently on hold. The patie nt is a very poor historian, seems to be restless agitated, does not answer questions properly, family is at bedside, and his CODE STATUS has been verified/DO NOT RESUSCITATE. Review of Systems GEN.: Significant weight loss over 40 pounds in the last few months, poor suad etite, profound weakness. EYES: No blurred vision, no diplopia. No lid lag, HEENT: Decreased hearing NECK: Denies any neck pain, denies any neck masses. RESPIRATORY: Shortness of breath, intermittent episodes of cough and congestion. Cough is productive with yellow phlegm. CARDIOVASCULAR: Denies any chest pain, denies any palpitations, no syncope. GASTROINTESTINAL: Chronic diarrhea, and overnight had black tarry stools/multiple episodes. GENITOURINARY: No dysuria and no frequency no urgency. MUSCULOSKELETAL: . Vague aches and pains. Hematologic: No clotting bleeding or bruising except for this episode of GI bleeding Psychiatric: No history of depression. Neurologic: No headache no blurred vision dizziness. Endocrine no heat or cold intolerance. Past Medical History Past Medical History: Atrial Fibrillation, Cancer, Heart Failure, CVA/TIA, Diabe colette Mellitus, Hyperlipidemia, Hypertension, Liver Disease, Osteoarthritis (OA), Skin Disorder Additional Past Medical History / Comment(s): hepatitis when he was 18 years old, in 1970's had pancreas problems enzyme deficient, skin itching History of Any Multi-Drug Resistant Organisms: None Reported Past Surgical History: Heart Catheterization With Stent, Orthopedic Surgery, Pacemaker Additional Past Surgical History / Comment(s): pacemaker 2003, replaced pacemaker in 2010, liver biospy, left kneecap removed in , one testicle removed Past Anesthesia/Blood Transfusion Reactions: No Reported Reaction Date of Last Stent Placement:: 2014 Type of Cardiac Device: Permanent Pacemaker Device Placement Date:: 2010 Past Psychological History: No Psychological Hx Reported Smoking Status: Current some day smoker Past Alcohol Use History: None Reported Past Drug Use History: None Reported Additional Drug Use History / Comment(s): patient states he smokes 1-2 cigarettes per day. been smoking since he was 16 years old - Past Family History Mother Family Medical History: Cancer, Diabetes Mellitus Additional Family Medical History / Comment(s): colon cancer Father Family Medical History: Diabetes Mellitus Additional Family Medical History / Comment(s): emphysema Medications and Allergies Home Medications Medication Instructions Recorded Confirmed Type Carvedilol [Coreg] 25 mg PO BID 09/16/18 05/14/19 History Dicyclomine [Bentyl] 20 mg PO QID 09/16/18 05/14/19 History Lipase/Protease/Amylase [Creon Dr 3 cap PO ACHS 09/16/18 05/14/19 History 24,000 Units Capsule] Losartan [Cozaar] 25 mg PO DAILY 09/16/18 05/14/19 History Potassium Chloride ER [K-Dur 20] 20 meq PO DAILY 09/16/18 05/14/19 History Simvastatin [Zocor] 40 mg PO HS 09/16/18 05/14/19 History Vit C/E/Zn/Coppr/Lutein/Zeaxan 1 cap PO BID 09/16/18 05/14/19 History [Preservision Areds 2 Softgel] glipiZIDE XL [Glucotrol XL] 2.5 mg PO DAILY 09/16/18 05/14/19 History Nitroglycerin 0.4 mg SL Q5M PRN 05/01/19 05/14/19 History Ondansetron HCl [Zofran] 8 mg PO Q8H PRN 05/09/19 05/14/19 History Furosemide [Lasix] 40 mg PO DAILY #0 05/11/19 05/14/19 Rx Omeprazole 20 mg PO BID #30 05/11/19 05/14/19 Rx Multivit-Min/FA/Lycopen/Lutein 1 tab PO DAILY 05/14/19 05/14/19 History [Centrum Silver Men Tablet] Allergies Allergy/AdvReac Type Severity Reaction Status Date / Time CLOVER Inhibitors Allergy Anaphylaxis Verified 05/14/19 12:44 amlodipine [From Norvasc] Allergy Rash/Hives Verified 05/14/19 12:44 cephalexin [From Keflex] Allergy Unknown Verified 05/14/19 12:44 Sulfa (Sulfonamide Allergy Unknown Verified 05/14/19 12:44 Antibiotics) valsartan [From Diovan] Allergy Anaphylaxis Verified 05/14/19 12:44 Physical Exam Vitals: Vital Signs Temp Pulse Pulse Resp BP BP BP 05/17/19 07:19 106 H 05/17/19 07:04 95 05/17/19 07:00 103 H 21 98/41 05/17/19 06:30 101 H 23 97/48 05/17/19 06:00 89 22 82/30 05/17/19 05:30 84 24 104/50 05/17/19 05:00 93 23 100/47 05/17/19 04:30 95 18 100/51 05/17/19 04:00 103 H 20 100/51 05/17/19 03:30 87 23 89/51 05/17/19 03:00 97.6 F 90 26 H 110/53 05/17/19 02:30 86 29 H 05/17/19 02:20 93 37 H 05/17/19 02:05 90 17 85/52 05/17/19 02:00 80 17 89/52 05/17/19 01:56 101 H 17 84/46 05/17/19 01:51 93 18 84/46 05/17/19 00:58 90 18 102/52 05/17/19 00:00 93 18 121/63 05/16/19 20:00 98 F 76 18 118/61 05/16/19 19:22 88 16 05/16/19 19:11 85 16 05/16/19 16:00 85 16 140/65 05/16/19 15:33 81 16 05/16/19 15:23 80 16 05/16/19 11:56 87 16 137/66 05/16/19 11:46 16 05/16/19 11:27 82 16 05/16/19 11:17 84 14 Pulse Ox 05/17/19 07:19 05/17/19 07:04 05/17/19 07:00 91 L 05/17/19 06:30 90 L 05/17/19 06:00 92 L 05/17/19 05:30 99 05/17/19 05:00 92 L 05/17/19 04:30 91 L 05/17/19 04:00 94 L 05/17/19 03:30 05/17/19 03:00 90 L 05/17/19 02:30 05/17/19 02:20 05/17/19 02:05 97 05/17/19 02:00 97 05/17/19 01:56 100 05/17/19 01:51 97 05/17/19 00:58 98 05/17/19 00:00 96 05/16/19 20:00 94 L 05/16/19 19:22 05/16/19 19:11 05/16/19 16:00 93 L 05/16/19 15:33 05/16/19 15:23 05/16/19 11:56 95 05/16/19 11:46 05/16/19 11:27 05/16/19 11:17 Intake and Output 05/16/19 05/17/19 05/17/19 22:59 06:59 14:59 Intake Total 240 725 75 Output Total 130 30 Balance 240 595 45 Intake: IV 725 75 Sodium Chloride 0.9% 1, 225 75 000 ml @ 75 mls/hr IV . [id number] [facility], [facility] Rx#:[id number] Sodium Chloride 0.9% 500 500 ml 500 ml @ 999 mls/hr IV .Q31M ONE Rx#:[id number] Oral 240 Output: Urine 130 15 Emesis 15 Other: Voiding Method Indwelling Catheter # Voids 1 1 GENERAL: Revealed 83-year-old white male, frail looking, chronically ill- looking, restless, agitated, keeps removing his Ventimask. EYES: Pale conjunctiva his, no icterus, PERRLA, EOMI. HEENT: Dry mucous membranes, throat is clear, no neck masses, no JVD. No lymphadenopathy. NECK: No limitation in range of motion, no neck pain, no stridor. HEART: Irregular irregular rhythm, no S3 gallop, no murmur. LUNGS: Diminished breath sounds at the bases, minimal crackles at the bases, rhonchi on forced expiratory maneuver. ABDOMEN: Soft nontender no megaly no rebound, no guarding. PSYCH: Anxious, agitated, depressed mood. NEUROLOGICAL: Restless agitated, and bit confused, tries to avoid answering questions. LYMPHATICS: No cervical adenopathy. Skin: No rashes. Results - Laboratory Findings CBC and BMP: 05/17/19 08:38 05/17/19 08:38 PT/INR, D-dimer PT 11.8 sec (9.0-12.0) 05/14/19 13:00 INR 1.1 (<1.2) 05/14/19 13:00 Abnormal lab findings: Abnormal Labs 05/14/19 05/14/19 05/14/19 13:00 13:00 17:07 WBC 16.4 H RBC Hgb Hct MCV Neutrophils # 13.2 H Monocytes # 1.2 H Sodium Potassium 2.9 L Carbon Dioxide 38 H BUN 57 H Creatinine 1.36 H Glucose 141 H POC Glucose (mg/dL) 168 H Calcium 7.4 L AST 69 H ALT 84 H Alkaline Phosphatase 416 H Creatine Kinase 45 L Total Protein 5.4 L Albumin 2.8 L 05/14/19 05/15/19 05/15/19 20:41 05:35 06:18 WBC RBC Hgb Hct MCV Neutrophils # Monocytes # Sodium 136 L Potassium Carbon Dioxide BUN 62 H Creatinine 1.34 H Glucose 212 H POC Glucose (mg/dL) 161 H 218 H Calcium 7.3 L AST ALT Alkaline Phosphatase Creatine Kinase Total Protein Albumin 05/15/19 05/15/19 05/15/19 11:46 17:02 20:17 WBC RBC Hgb Hct MCV Neutrophils # Monocytes # Sodium Potassium Carbon Dioxide BUN Creatinine Glucose POC Glucose (mg/dL) 202 H 259 H 238 H Calcium AST ALT Alkaline Phosphatase Creatine Kinase Total Protein Albumin 05/16/19 05/16/19 05/16/19 05:34 05:34 06:24 WBC 12.4 H RBC 3.88 L Hgb Hct MCV 101.5 H Neutrophils # 10.2 H Monocytes # Sodium 136 L Potassium Carbon Dioxide BUN 62 H Creatinine Glucose 167 H POC Glucose (mg/dL) 186 H Calcium 8.3 L AST ALT Alkaline Phosphatase Creatine Kinase Total Protein Albumin 05/16/19 05/16/19 05/16/19 11:43 16:32 20:19 WBC RBC Hgb Hct MCV Neutrophils # Monocytes # Sodium Potassium Carbon Dioxide BUN Creatinine Glucose POC Glucose (mg/dL) 171 H 131 H 144 H Calcium AST ALT Alkaline Phosphatase Creatine Kinase Total Protein Albumin 05/17/19 05/17/19 05/17/19 01:14 02:00 02:28 WBC 11.8 H RBC 2.97 L Hgb 9.9 L D Hct 30.1 L MCV 101.5 H Neutrophils # Monocytes # Sodium Potassium Carbon Dioxide BUN Creatinine Glucose POC Glucose (mg/dL) 246 H 211 H Calcium AST ALT Alkaline Phosphatase Creatine Kinase Total Protein Albumin 05/17/19 05/17/19 05/17/19 06:20 08:38 08:38 WBC 14.7 H RBC 2.62 L Hgb 8.9 L Hct 26.4 L MCV 100.8 H Neutrophils # 12.5 H Monocytes # Sodium Potassium Carbon Dioxide BUN 98 H Creatinine 1.60 H Glucose 180 H POC Glucose (mg/dL) 207 H Calcium AST ALT Alkaline Phosphatase Creatine Kinase Total Protein Albumin - Diagnostic Findings Chest x-ray: image reviewed (Chest x-ray showed bibasilar atelectasis, questionable infiltrates and small pleural effusions. The findings are basically chronic.) Additional studies: Echocardiogram showed mildly impaired LV function, ejection fraction 45-50%. Assessment and Plan Assessment: Impression: 1 acute GI bleeding, most likely upper GI in nature unless for otherwise. Patient will be placed on Protonix, nasogastric tube was ordered by gastroenterology, and he may eventually require EGD. In the meantime Eliquis remains on hold, will treat accordingly, may require blood transfusion if hemoglobin drops down below 7. 2 newly diagnosed neuroendocrine tumor of pancreatic origin, being followed by oncology. Plans are to treat him on outpatient basis. 3 chronic diarrhea, most likely secondary to metastatic neuroendocrine tumor. Patient is on Sandostatin 100 mg subcu every 8 hours, seems to improve his diarrhea. 4 history of type 2 diabetes 5 history of benign essential hypertension. 6 medical debility and significant weight loss over the last one year. 7 suspect some component of COPD and acute exacerbation. Patient is on bronchodilators. 8 chronic nicotine dependence, patient has been a heavy smoker over the years. 9 chronic atrial fibrillation 10 acute kidney injury secondary to hypotension, possibly acute tubular necrosis. Secondary to GI bleeding. 11 history of coronary artery disease and previous stent placement. 12 possible mild diastolic congestive heart failure. His LV function based on the echo is not significantly compromised Recommendation: Discussed his condition with family at bedside, CODE STATUS was confirmed, patient will be DO NOT RESUSCITATE. We will try to continue present treatment plan including close monitoring of hemoglobin, may require transfusion, patient will be given fluid boluses as he seems to be clinically dry on physical examination today, continue cardiac meds, hold anticoagulation therapy, hold diuretics for low blood pressure. Continue bronchodilators. Continue Protonix. Agree with nasogastric tube placement continue pancreatic enzymes replacement. Prognosis is extremely poor and guarded, we'll continue to follow. Time with Patient: Greater than 30
[2019-05-17 11:27] LABS: Glucose,Whole Blood 169 mg/dL (75-99)
[2019-05-17 11:33] LABS: Basophils % (A) 0 %; Eosinophils % (A) 0 %; HCT 24.8 % (39.0-53.0); HGB 8.3 gm/dL (13.0-17.5); Lymphocytes # (A) 1.5 k/uL (1.0-4.8); Lymphocytes % (A) 10 %; MCH 33.6 pg (25.0-35.0); MCHC 33.5 g/dL (31.0-37.0); MCV 100.4 fL (80.0-100.0); Mean Platelet Volume 7.6; Monocytes # (A) 0.7 k/uL (0-1.0); Monocytes % (A) 4 %; Neutrophils % (A) 85 %; Platelet Count 294 k/uL (150-450); RBC 2.47 m/uL (4.30-5.90); RDW 13.5 % (11.5-15.5); WBC 15.4 k/uL (3.8-10.6)
--- NOTE | 2019-05-17 13:31 | P.PN ---
Subjective Progress Note Date: 05/17/19 Principal diagnosis: PNET In follow-up today patient is in the intensive care unit. He had hematic emesis, dark/coffee-ground, he has a NG tube placed with dark material being ex tracted. Patient does not have the desire to vomit at this time, the NG tube is uncomfortable but not causing him to gag, he is feeling tired and short of breath. Objective - Vital Signs Vital signs: Vital Signs Temp 97.0 F L 05/17/19 08:00 Pulse 112 H 05/17/19 13:04 Resp 12 05/17/19 12:00 BP 76/29 05/17/19 11:30 Pulse Ox 93 L 05/17/19 11:30 Intake & Output 05/16/19 05/17/19 05/17/19 18:59 06:59 18:59 Intake Total 201 485 0406 Output Total 130 120 Balance 765 414 0431 Intake: IV 725 1450 Sodium Chloride 0.9% 1, 225 450 000 ml @ 75 mls/hr IV . [id number] [facility] Rx#:[id number] Sodium Chloride 0.9% 830 361 3414 ml 500 ml @ 999 mls/hr IV .Q31M ONE Rx#:[id number] Oral 600 Output: Urine 130 105 Emesis 15 Other: Voiding Method Indwelling Catheter Indwelling Catheter # Voids 2 1 - Exam Compared to just 2 days ago patient looks significantly more frail, [place] color, does get short of breath with speech, he is on a Ventimask, he is hypotensive and tachycardic on monitor, he is noted to have blood in his left nare. - Labs CBC & Chem 7: 05/17/19 11:16 05/17/19 08:38 Labs: Abnormal Lab Results - Last 24 Hours (Table) 05/16/19 05/16/19 05/17/19 Range/Units 16:32 20:19 01:14 WBC 11.8 H (3.8-10.6) k/uL RBC 2.97 L (4.30-5.90) m/uL Hgb 9.9 L D (13.0-17.5) gm/dL Hct 30.1 L (39.0-53.0) % MCV 101.5 H (80.0-100.0) fL Neutrophils # (1.3-7.7) k/uL BUN (9-20) mg/dL Creatinine (0.66-1.25) mg/dL Glucose (74-99) mg/dL POC Glucose (mg/dL) 131 H 144 H (75-99) mg/dL 05/17/19 05/17/19 05/17/19 Range/Units 02:00 02:28 06:20 WBC (3.8-10.6) k/uL RBC (4.30-5.90) m/uL Hgb (13.0-17.5) gm/dL Hct (39.0-53.0) % MCV (80.0-100.0) fL Neutrophils # (1.3-7.7) k/uL BUN (9-20) mg/dL Creatinine (0.66-1.25) mg/dL Glucose (74-99) mg/dL POC Glucose (mg/dL) 246 H 211 H 207 H (75-99) mg/dL 05/17/19 05/17/19 05/17/19 Range/Units 08:38 08:38 11:16 WBC 14.7 H 15.4 H (3.8-10.6) k/uL RBC 2.62 L 2.47 L (4.30-5.90) m/uL Hgb 8.9 L 8.3 L (13.0-17.5) gm/dL Hct 26.4 L 24.8 L (39.0-53.0) % MCV 100.8 H 100.4 H (80.0-100.0) fL Neutrophils # 12.5 H 13.0 H (1.3-7.7) k/uL BUN 98 H (9-20) mg/dL Creatinine 1.60 H (0.66-1.25) mg/dL Glucose 180 H (74-99) mg/dL POC Glucose (mg/dL) (75-99) mg/dL 05/17/19 Range/Units 11:24 WBC (3.8-10.6) k/uL RBC (4.30-5.90) m/uL Hgb (13.0-17.5) gm/dL Hct (39.0-53.0) % MCV (80.0-100.0) fL Neutrophils # (1.3-7.7) k/uL BUN (9-20) mg/dL Creatinine (0.66-1.25) mg/dL Glucose (74-99) mg/dL POC Glucose (mg/dL) 169 H (75-99) mg/dL Microbiology - Last 24 Hours (Table) 05/14/19 13:00 Blood Culture - Preliminary Blood No Growth after 48 hours Assessment and Plan (1) Primary pancreatic neuroendocrine tumor Narrative/Plan: Newly diagnosed. Pending treatment outpatient. . Current Visit: Yes Status: Acute Priority: High Code(s): D3A.8 - OTHER BENIGN NEUROENDOCRINE TUMORS SNOMED Code(s): 326435522 Plan: Agree with treatment of congestive heart failure and COPD. Encouraged patient to follow with his specialist as directed. Not suspecting that pt current situation is r/t PNET. Pt is being closely monitored in ICU, Critical Care on case.
--- NOTE | 2019-05-17 16:33 | PN ---
PROGRESS NOTE DATE OF DICTATION: 05/17/2019 Patient is an 83-year-old pleasant white male who was admitted to the hospital with abdominal pain and a newly diagnosed metastatic neuroendocrine tumor of the liver/pancreas. While in the hospital he was having severe diarrhea and was started on Sandostatin 50 mg q.8 hours. His diarrhea has completely resolved. The patient also has history of atrial fibrillation and has been on Eliquis and was doing well. Last night he had an episode of coffee-ground emesis followed by abdominal discomfort, nausea, vomiting, hypotension, and patient was transferred to the intensive care unit. He dropped his hemoglobin from 12 to 9 g/dL and this morning dropped to 8.2 g/dL. NG tube was placed and approximately 1400 mL of coffee-ground material was aspirated from the stomach. Presently the Eliquis is on hold. He is feeling much better. His last hemoglobin is 8.2 g/dL. He continues to remain persistently hypotensive and he is receiving 2 units of PRBC transfusion. He had 2 episodes of black tarry stool this morning. The patient has no prior history of GI bleed. PHYSICAL EXAMINATION: He appears comfortable. No apparent distress. VITAL SIGNS: Stable. Blood pressure is 98/62, pulse rate 115 per minute and afebrile. HEENT examination unremarkable. Conjunctivae pink. Sclerae anicteric. Oral cavity no lesions. NECK: No JVD or lymph node enlargement. CHEST: Clear to auscultation. HEART: Regular rate and rhythm. ABDOMEN: Soft. Mild tenderness in the epigastric area. Bowel sounds are positive. No organomegaly. EXTREMITIES: No pedal edema. SKIN: No rashes. NEUROLOGIC: He is alert and oriented x3. No focal deficits. LABS: WBC 15.4, hemoglobin 8.3, platelets normal. BUN was 98 and creatinine 1.60. IMPRESSION: 1. Acute upper gastrointestinal bleed with coffee-ground emesis followed by almost 1500 mL of coffee-ground material that was aspirated via the NG tube this morning. Hemoglobin dropped from 12 to 8.2 g/dL, presently receiving 2 units of PRBC transfusion. No prior history of peptic ulcer disease. 2. Atrial fibrillation, on Eliquis, which is on hold. 3. 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 Following with Dr. Plata. 4. Chronic diarrhea, on Sandostatin subcutaneously and doing well. 5. History of chronic pancreatic insufficiency, maintained on pancreatic enzyme supplements. RECOMMENDATIONS: 1. Continue with Protonix 40 mg q.12 hours. 2. Hold Eliquis. 3. Agree with PRBC transfusion. 4. Will proceed with an upper endoscopy tomorrow. Discussed with the patient risks, benefits and complications of the procedure, and he is agreeable to it. Thank you for this consultation. CHANDANA / [place]: [id number] /
--- NOTE | 2019-05-17 17:12 | P.PN ---
Progress Note - Text Progress Note Date: 05/17/19 Chief Complaint: Shortness of breath congested History of presenting complaint: This is a pleasant 83-year-old patient of Dr. Vic Hilario. Chronic stable medical conditions include diabetes mellitus type 2, hyperlipidemia, hypertension, osteoarthritis. Patient is foldable liver mass and recently a liver biopsy done. But his come back showing metastatic neuroendocrine carcinoma. Patient presented with noted below symptoms. Congested in the chest. Short of breath and wheezing. Patient has a long-standing watery diarrhea. Some abdominal pain. Patient has been followed by oncology and GI. Patient is . Has been getting weak and tired. Using a walker. Appetite is gone down. No fever no chills. Wheezing is present. Patient has been smoking for many years. The down to a few cigarettes a day. 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 Started on Sandostatin. Responded well. Today-yesterday evening patient started having abdominal discomfort and had coffee-ground emesis. Moved to the ICU. NG tube was placed. Had a large amount of coffee-ground aspirate. Also had dark stools this morning. Hemoglobin also dropped. Ordered 2 units of blood. In the ICU. Family at the bedside including the and the son. Feeling tired rundown. Anticoagulation was held Review of systems: Was done for constitutional, cardiovascular, GI, pulmonary. relevant finding as above Active Medications Albuterol/Ipratropium (Duoneb 0.5 Mg-3 Mg/3 Ml Soln) 3 ml INHALATION TID [facility] Last Admin: 05/17/19 12:50 Dose: 3 ml Documented by: Atorvastatin Calcium (Lipitor) 20 mg PO HS [facility] Last Admin: 05/16/19 20:28 Dose: 20 mg Documented by: Budesonide (Pulmicort) 1 mg INHALATION RT-BID [facility] Last Admin: 05/17/19 07:04 Dose: 1 mg Documented by: Calcium Carbonate/Glycine (Tums Liquid) 500 mg PO TID-W/MEALS [facility] Last Admin: 05/17/19 14:19 Dose: Not Given Documented by: Dicyclomine HCl (Bentyl) 20 mg PO QID [facility] Last Admin: 05/17/19 14:19 Dose: Not Given Documented by: Glipizide (Glucotrol) 2.5 mg PO DAILY [facility] Last Admin: 05/17/19 11:05 Dose: Not Given Documented by: Guaifenesin (Mucinex) 1,200 mg PO Q12HR [facility] Last Admin: 05/17/19 11:05 Dose: Not Given Documented by: Sodium Chloride (Saline 0.9%) 1,000 mls @ 75 mls/hr IV .[id number] [facility] Last Admin: 05/17/19 03:59 Dose: 75 mls/hr Documented by: Insulin Aspart (Novolog) 0 unit SQ Q6H [facility]; Protocol Last Admin: 05/17/19 14:19 Dose: Not Given Documented by: Metoprolol Tartrate (Lopressor) 12.5 mg PO BID [facility] Last Admin: 05/17/19 11:05 Dose: Not Given Documented by: Multivitamins (Theragran) 1 each PO DAILY [facility] Last Admin: 05/17/19 11:06 Dose: Not Given Documented by: Multivitamins/Minerals (Ivite) 1 each PO BID [facility] Last Admin: 05/17/19 11:06 Dose: Not Given Documented by: Nitroglycerin (Nitrostat) 0.4 mg SUBLINGUAL Q5M PRN PRN Reason: Chest Pain Creon Dr (Lipase/Protease/Amylase) 24 ,000 Units Capsule 3 cap PO ACHS [facility] Last Admin: 05/17/19 11:06 Dose: Not Given Documented by: Ondansetron HCl (Zofran) 8 mg PO Q8H PRN PRN Reason: Nausea Last Admin: 05/16/19 22:23 Dose: 8 mg Documented by: Ondansetron HCl (Zofran) 4 mg IVP Q6HR PRN PRN Reason: Nausea And Vomiting Last Admin: 05/17/19 08:08 Dose: 4 mg Documented by: Pantoprazole Sodium (Protonix) 40 mg IVP BID [facility] Last Admin: 05/17/19 11:03 Dose: 40 mg Documented by: Potassium Chloride (K-Dur 20) 20 meq PO DAILY [facility] Last Admin: 05/17/19 11:06 Dose: Not Given Documented by: Prednisone () 40 mg PO DAILY [facility] Last Admin: 05/17/19 11:06 Dose: Not Given Documented by: Physical examination: VITAL SIGNS: 97.7, 91, 25, 102/60, 89% GENERAL: Propped up in bed, tired appearing EYES: Pupils equal. Conjunctiva pale HEENT: External appearance of nose and ears normal, oral cavity grossly normal. NECK: JVD unable to assess masses not palpable. HEART: Heart sounds irregular, no edema. LUNGS: Respiratory rate improved, decreased breath sounds ABDOMEN: Soft, mild midabdominal tenderness, no guarding or rigidity, liver spleen not palpable, no masses palpable. PSYCH: Alert and oriented x3; mood and affect tired INVESTIGATIONS, reviewed in the clinical context: White count 14.7 with hemoglobin 8.9 platelets 337 bun 98 creatinine 1.6 Previous testing White count 16.4 hemoglobin 15.1 potassium 2.9 bun 57 creatinine 1.36 AST 60 02/20/2084 alk phos 416 proBNP 3260 albumin 2.8 EKG tracing personally reviewed by me-atrial fibrillation rate around 1:15 Chest x-ray film personally reviewed by me-some cardiomegaly, venous prominence, left pleural effusion liver mass biopsy showing metastatic neuroendocrine carcinoma Patient's creatinine was 0.76 in September of this year. 2-D echo-concentric left medical hypertrophy, EF 45-50% hypokinetic del rio. Assessment: -This is a patient has long-standing diarrhea abdominal pain, some respiratory symptoms with liver biopsy showing metastatic neuroendocrine carcinoma. - Possible carcinoid. Has responded well to Sandostatin. Diarrhea resolved. -Acute upper GI bleed, patient on anticoagulation -Acute blood loss anemia, symptomatic, being transfused blood -Acute COPD exacerbation in a current smoker, much improved -Chronic nicotine dependence patient cigarette smoker -Possible acute on chronic congestive heart failure, from systolic and diastolic dysfunction from underlying coronary artery disease, much improved -Persistent atrial flutter fibrillation with uncontrolled, in the 120s today -Chronic Coumadin monitoring -Hyperlipidemia -Essential hypertension -Diabetes mellitus type 2 on oral hypoglycemic - acute kidney injury likely secondary to prerenal from persistent diarrhea decreased oral intake -Coronary artery disease, with stent Possible disposition: Home Plan: Patient is both the ICU. 2 L of blood were given. Being followed closely hemodynamically. Pulse is guarded. Patient will need upper endoscopy. Did speak at length with the patient's son and also the ICU also patient's son and daughter were present. Discussed with them. Given her age prognosis guarded. Total time spent today was about 45 minutes with over 30 minutes in discussion.
[2019-05-17 18:01] LABS: Glucose,Whole Blood 149 mg/dL (75-99)
[2019-05-17 18:40] LABS: Basophils % (A) 0 %; Eosinophils % (A) 0 %; HCT 34.8 % (39.0-53.0); Lymphocytes # (A) 2.1 k/uL (1.0-4.8); Lymphocytes % (A) 10 %; MCV 96.9 fL (80.0-100.0); Mean Platelet Volume 7.7; Monocytes % (A) 5 %; Neutrophils % (A) 83 %; Platelet Count 290 k/uL (150-450); RBC 3.59 m/uL (4.30-5.90); RDW 14.4 % (11.5-15.5); WBC 20.5 k/uL (3.8-10.6)
[2019-05-17 18:42] LABS: HGB 11.5 gm/dL (13.0-17.5)
[2019-05-17] MEDS: ATORVASTATIN 20 MG TAB PO SCH (21:28)
[2019-05-18 00:14] LABS: Glucose,Whole Blood 118 mg/dL (75-99)
[2019-05-18] MEDS: SODIUM CHLORIDE 0.9% 1,000 ML IV SCH ×2 (00:14→08:58)
[2019-05-18 00:24] LABS: Basophils % (A) 0 %; Eosinophils % (A) 0 %; HCT 32.7 % (39.0-53.0); HGB 11.3 gm/dL (13.0-17.5); Lymphocytes # (A) 2.3 k/uL (1.0-4.8); Lymphocytes % (A) 11 %; MCH 33.1 pg (25.0-35.0); MCHC 34.4 g/dL (31.0-37.0); MCV 96.3 fL (80.0-100.0); Mean Platelet Volume 7.2; Monocytes # (A) 1.1 k/uL (0-1.0); Monocytes % (A) 5 %; Neutrophils # (A) 17.3 k/uL (1.3-7.7); Neutrophils % (A) 82 %; Platelet Count 253 k/uL (150-450); RDW 14.4 % (11.5-15.5)
[2019-05-18 05:13] LABS: Basophils % (A) 0 %; Eosinophils % (A) 0 %; HCT 30.2 % (39.0-53.0); HGB 10.6 gm/dL (13.0-17.5); Lymphocytes # (A) 2.3 k/uL (1.0-4.8); Lymphocytes % (A) 12 %; MCH 33.4 pg (25.0-35.0); MCV 95.5 fL (80.0-100.0); Mean Platelet Volume 6.5; Monocytes # (A) 0.9 k/uL (0-1.0); Monocytes % (A) 5 %; Neutrophils # (A) 16.3 k/uL (1.3-7.7); Neutrophils % (A) 82 %; Platelet Count 253 k/uL (150-450); RBC 3.16 m/uL (4.30-5.90); RDW 14.8 % (11.5-15.5); WBC 19.8 k/uL (3.8-10.6)
[2019-05-18 05:22] LABS: Potassium 3.6 mmol/L (3.5-5.1)
[2019-05-18 06:10] LABS: Glucose,Whole Blood 82 mg/dL (75-99)
[2019-05-18] MEDS: INSULIN ASPART (NovoLOG) 100 UNIT/ML VIAL SQ SCH ×4 (06:13→17:31)
[2019-05-18] MEDS: CALCIUM CARBONATE LIQUID 500 MG/5 ML CUP PO SCH ×3 (06:15→17:29)
[2019-05-18] MEDS: LACTATED RINGERS 1,000 ML IV SCH ×2 (06:28→21:53)
--- NOTE | 2019-05-18 08:07 | PN ---
PROGRESS NOTE Mr. Guan is an 83-year-old male with a history of chronic persistent atrial fibrillation with his recently diagnosed metastatic neuroendocrine carcinoma, who presented with diarrhea and weakness and had episode of nausea and hematemesis was transferred to the ICU. He is feeling better this morning. His abdominal pain is better. He has no dizziness or palpitation. No chest pain. He has an NG tube placed and he is scheduled to undergo upper endoscopy today. He was evaluated by Dr. Shah. He continues to be in atrial fibrillation with better control of his ventricular response. He continues to be at this time on Lipitor 20 mg daily, glipizide 2.5 mg daily, metoprolol 12.5 mg twice a day, Protonix and prednisone. PHYSICAL EXAMINATION: Blood pressure 130/60 with a heart rate in the 80s. LUNGS: With no wheezes or rales. HEART: Irregular, regular. S1, S2. No S3. No rub with a systolic murmur. ABDOMEN: Soft, nontender, positive bowel sounds. EXTREMITIES: No edema. LAB DATA: Revealed hemoglobin of 10.6, white blood cell of 19.8. His BUN and creatinine are 90 and 1.39. His potassium is 3.6. IMPRESSION: 1. Acute upper gastrointestinal bleeding, stabilizing. Patient is scheduled to undergo endoscopy today. 2. Metastatic neuroendocrine malignancy of pancreatic origin. 3. History of chronic persistent atrial fibrillation. 4. History of smoking. 5. Worsening renal function with possible acute tubular necrosis. 6. History of coronary artery disease. RECOMMENDATION: From the cardiac standpoint, will continue present therapy, continue to hold his anticoagulation. I will increase the dose of his beta ronit. Continue to follow his renal function and hemoglobin. The prognosis remains guarded. MMODL / IJN: [id number] /
[2019-05-18] MEDS: BUDESONIDE 1 MG/2 ML NEBU INHALATION SCH ×2 (08:27→19:08)
[2019-05-18] MEDS: IPRATROPIUM-ALBUTEROL 3 ML NEB INHALATION SCH ×3 (08:27→19:08)
[2019-05-18] MEDS: guaiFENesin 600 MG TABLET.ER PO SCH ×2 (08:54→21:50)
[2019-05-18] MEDS: VIT A,C & E-LUTEIN-MINERALS 1 EACH TAB PO SCH ×2 (08:54→21:52)
[2019-05-18] MEDS: MULTIVITAMINS, THERA 1 EACH TAB PO SCH (08:54)
[2019-05-18] MEDS: DICYCLOMINE 20 MG TAB PO SCH ×4 (08:54→21:51)
[2019-05-18] MEDS: PANTOPRAZOLE 40 MG/10 ML VIAL IVP SCH ×2 (08:58→21:49)
[2019-05-18] MEDS: METOPROLOL TARTRATE 25 MG TAB PO SCH ×2 (08:58→21:51)
--- NOTE | 2019-05-18 10:52 | P.PN ---
Subjective Progress Note Date: 05/18/19 Principal diagnosis: Acute GI bleeding This is an 83-year-old white male with known history of recently diagnosed with neuroendocrine tumor of pancreatic origin patient presented initially with abnormal CT of the abdomen and pelvis, revealing heterogeneous liver masses replacing normal tissue as well as a very large pancreatic head mass. Patient was also complaining of nausea vomiting, watery diarrhea for one year. 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 Patient had at least a 40 pound weight loss over the last 6 months. And the profound weakness. On 05/14/2019, patient was admitted with shortness of breath which was felt to be a component of diastolic congestive heart failure and COPD. Patient was seen by many consultants including cardiology, and last night the patient was noted to have recurrent episodes of black tarry stools, and there was a significant drop in his hemoglobin. Arrangements were made to transfer the patient to the ICU, and I was asked to see him on consultation. Patient is now in the ICU, on 50% Ventimask, relatively hypotensive, hence I have ordered more fluids to be given, and the patient may require blood transfusion however his hemoglobin this morning is 8.9, and his hemoglobin on admission was 15.1. Patient was started on Protonix, GI was consulted, and at this point no plans to perform need immediate EGD, patient was on Eliquis just before he was admitted, and it is presently on hold. The patient is a very poor historian, seems to be restless agitated, does not answer questions properly, family is at bedside, and his CODE STATUS has been verified/DO NOT RESUSCITATE. Reevaluated today on 05/18/2019, patient remains in the intensive care unit, patient was getting more hypotensive yesterday, and he responded well to 2 units of packed RBCs given. He responded to fluid boluses. And a nasogastric tube was placed and retrieved significant amount of coffee-ground material in the stomach. Patient is scheduled to undergo EGD today. His hemoglobin today is 10.6, his initial hemoglobin on presentation was 15.1, went as low as 8.3, but he was extremely symptomatic, and hypotensive, improved with fluids and later on with 2 units of packed RBCs given. No active bleeding at present, patient continues to have a nasogastric tube in place, he is hemodynamically stable, and again he is scheduled to have EGD today. Objective - Vital Signs Vital signs: Vital Signs Temp 99 F 05/18/19 04:00 Pulse 92 05/18/19 10:00 Resp 19 05/18/19 10:00 BP 124/58 05/18/19 10:00 Pulse Ox 94 L 05/18/19 10:00 Intake & Output 05/17/19 05/18/19 05/18/19 18:59 06:59 18:59 Intake Total 2520 900 225 Output Total 1955 1590 350 Balance 565 -690 -125 Weight 69.1 kg Intake: IV 1900 900 225 Sodium Chloride 0.9% 1, 900 900 225 000 ml @ 75 mls/hr IV . [id number] [facility] Rx#:[id number] Sodium Chloride 0.9% 500 1000 ml 500 ml @ 999 mls/hr IV .Q31M ONE Rx#:[id number] Blood Product 620 Rc As-1 Unit 310 [id number] Rc As-1 Unit 310 [id number] Output: Gastric Drainage 1400 200 Urine 540 1390 350 Emesis 15 Other: Voiding Method Indwelling Catheter Indwelling Catheter Indwelling Catheter # Bowel Movements 1 - Exam GENERAL: Revealed 83-year-old white male, frail looking, chronically ill- looking, in no form of respiratory distress. Much calmer today. EYES: Pale conjunctiva his, no icterus, PERRLA, EOMI. HEENT: Dry mucous membranes, throat is clear, no neck masses, no JVD. No lymphadenopathy. NECK: No limitation in range of motion, no neck pain, no stridor. HEART: Irregular irregular rhythm, no S3 gallop, no murmur. LUNGS: Diminished breath sounds at the bases, no rhonchi no wheezes. ABDOMEN: Soft nontender no megaly no rebound, no guarding. PSYCH: Normal mood affect and normal mental status examination. NEUROLOGICAL: Alert and oriented 3, no gross focal neurologic deficits.. LYMPHATICS: No cervical adenopathy. Skin: No rashes. - Labs CBC & Chem 7: 05/18/19 04:38 05/18/19 04:38 Labs: Abnormal Lab Results - Last 24 Hours (Table) 05/17/19 05/17/19 05/17/19 Range/Units 11:16 11:16 11:24 WBC 15.4 H (3.8-10.6) k/uL RBC 2.47 L (4.30-5.90) m/uL Hgb 8.3 L (13.0-17.5) gm/dL Hct 24.8 L (39.0-53.0) % MCV 100.4 H (80.0-100.0) fL Neutrophils # 13.0 H (1.3-7.7) k/uL Monocytes # (0-1.0) k/uL Chloride (98-107) mmol/L BUN (9-20) mg/dL Creatinine (0.66-1.25) mg/dL POC Glucose (mg/dL) 169 H (75-99) mg/dL Calcium (8.4-10.2) mg/dL Crossmatch See Detail 05/17/19 05/17/19 05/18/19 Range/Units 18:00 18:04 00:00 WBC 20.5 H 21.0 H (3.8-10.6) k/uL RBC 3.59 L 3.40 L (4.30-5.90) m/uL Hgb 11.5 L D 11.3 L (13.0-17.5) gm/dL Hct 34.8 L 32.7 L (39.0-53.0) % MCV (80.0-100.0) fL Neutrophils # 17.0 H 17.3 H (1.3-7.7) k/uL Monocytes # 1.1 H (0-1.0) k/uL Chloride (98-107) mmol/L BUN (9-20) mg/dL Creatinine (0.66-1.25) mg/dL POC Glucose (mg/dL) 149 H (75-99) mg/dL Calcium (8.4-10.2) mg/dL Crossmatch 05/18/19 05/18/19 05/18/19 Range/Units 00:13 04:38 04:38 WBC 19.8 H (3.8-10.6) k/uL RBC 3.16 L (4.30-5.90) m/uL Hgb 10.6 L (13.0-17.5) gm/dL Hct 30.2 L (39.0-53.0) % MCV (80.0-100.0) fL Neutrophils # 16.3 H (1.3-7.7) k/uL Monocytes # (0-1.0) k/uL Chloride 108 H (98-107) mmol/L BUN 90 H (9-20) mg/dL Creatinine 1.39 H (0.66-1.25) mg/dL POC Glucose (mg/dL) 118 H (75-99) mg/dL Calcium 8.0 L (8.4-10.2) mg/dL Crossmatch Microbiology - Last 24 Hours (Table) 05/14/19 13:00 Blood Culture - Preliminary Blood No Growth after 72 hours Assessment and Plan Assessment: Impression: 1 acute GI bleeding, most likely upper GI in nature unless for otherwise. Patient is scheduled to undergo EGD today. Received a total of 2 units of packed RBCs since admission. 2 newly diagnosed neuroendocrine tumor of pancreatic origin, being followed by oncology. Plans are to treat him on outpatient basis. 3 chronic diarrhea, most likely secondary to metastatic neuroendocrine tumor. Patient is on Sandostatin 100 mg subcu every 8 hours, seems to improve his diarrhea. 4 history of type 2 diabetes 5 history of benign essential hypertension. 6 medical debility and significant weight loss over the last one year. 7 suspect some component of COPD and acute exacerbation. Patient is on bronchodilators. 8 chronic nicotine dependence, patient has been a heavy smoker over the years. 9 chronic atrial fibrillation 10 acute kidney injury secondary to hypotension, possibly acute tubular necrosis. Secondary to GI bleeding. 11 history of coronary artery disease and previous stent placement. 12 possible mild diastolic congestive heart failure. His LV function based on the echo is not significantly compromised 13 hypotension secondary to hypovolemia and hypovolemic shock. Responded to fluids and to blood transfusion. Recommendation: Continue present supportive care measures. Patient will have EGD today, and based on the EGD findings, may consider transferring the patient out of the ICU to a monitor bed. Considering his multiple medical problems as listed above, overall prognosis remains extremely poor and guarded. We'll continue to follow while in the ICU. Time with Patient: Less than 30
[2019-05-18] MEDS ORDERED: LIDOCAINE 1% INJ 10MG/ML (20 ML MDV) ONE (11:15)
[2019-05-18] MEDS ORDERED: PROPOFOL 10 MG/ML 20 ML VIAL IV ONE (11:15)
[2019-05-18] MEDS ORDERED: IV FLUID CONTINUATION 1,000 ML IV ONE (11:30)
--- NOTE | 2019-05-18 11:39 | P.PCN ---
Date of Procedure: 05/18/19 Procedure(s) Performed: BRIEF HISTORY: Patient is a 83-year-old, pleasant, white male, admitted hospital with abdominal pain and severe diarrhea. He was recently diagnosed with metastatic neuroendocrine tumor of pancreatitis origin. While in the hospital he had an episode of acute upper GI bleed with hypotension and hence transferred to the intensive care unit. This appearance of blood transfusion. NG tube was placed and approximately 2 L of coffee-ground material aspirated. He scheduled for an upper endoscopy to evaluate source of upper GI bleed. Patient has chronic A. fib and has been on a look was uis on hold for the last 2 days. PROCEDURE PERFORMED: Esophagogastroduodenoscopy with biopsy. PREOPERATIVE DIAGNOSIS: Acute upper GI bleed. IV sedation per anesthesia. PROCEDURE: After informed consent was obtained, the patient was brought into the endoscopy unit. IV sedation was administered by Anesthesia under continuous monitoring. Initially the Olympus GIF-140 video endoscope was inserted into the mouth. Esophagus intubated without any difficulty. It was gradually advanced into the stomach and duodenum and carefully examined. The bulb of the duodenum had a 1 cm superficial ulcer with no active bleeding and the second part of the duodenum appeared normal. The scope at this time was withdrawn to the stomach, adequately insufflated with air, and upon careful examination, mucosa of the antrum a diffuse gastritis. There with the ulcerations noted in antrum of the stomach the largest measuring 3 cm in size in the proximal antrum with no active bleeding. The other 2 ulcerations measuring 1 cm in size with no active bleeding. Biopsies were done from the margins of these ulcers. Mucosa of the body, cardia and the fundus appeared normal. The scope was then withdrawn into the esophagus. The GE junction was located at 39 cm from the incisors. there was severe esophagitis noted throughout the entire esophagus with linear ulcerations and exudates and erosions consistent with LA grade D reflux esophagitis and the patient tolerated the procedure well. IMPRESSION: 1. 3 cm deep antral ulcer with no active bleeding. 2. 1 cm 2 antral ulcers with no active bleeding 3. 1 cm duodenal ulcer with no active bleeding 4. Diffuse gastritis 5. Severe esophagitis involving the entire esophagus consistent with LA grade D reflux esophagitis RECOMMENDATIONS: The findings of this examination were discussed with the patient as well as as her family. He was advised to continue on Protonix 40 mg twice daily. Continue to hold eliquis 13 weeks. He will be started on a clear liquid diet and will be advanced as tolerated. Monitor CBC on a daily.
[2019-05-18 12:11] LABS: Glucose,Whole Blood 47 mg/dL (75-99)
[2019-05-18 12:13] LABS: Glucose,Whole Blood 50 mg/dL (75-99)
[2019-05-18 12:36] LABS: Glucose,Whole Blood 55 mg/dL (75-99)
[2019-05-18 12:51] LABS: Glucose,Whole Blood 33 mg/dL (75-99)
[2019-05-18 12:53] LABS: Glucose,Whole Blood 43 mg/dL (75-99)
[2019-05-18 13:10] LABS: Glucose,Whole Blood 37 mg/dL (75-99)
[2019-05-18 13:28] LABS: Glucose,Whole Blood 89 mg/dL (75-99)
[2019-05-18 14:04] LABS: Glucose,Whole Blood 132 mg/dL (75-99)
[2019-05-18 17:22] LABS: Glucose,Whole Blood 94 mg/dL (75-99)
[2019-05-18] MEDS: POTASSIUM CHLORIDE ER 20 MEQ TAB.ER PO SCH (17:29)
[2019-05-18] MEDS: predniSONE 20 MG TAB PO SCH (17:29)
[2019-05-18] MEDS ORDERED: DEXTROSE 5% IN WATER 1,000 ML IV ONE (18:28)
[2019-05-18 20:30] LABS: Glucose,Whole Blood 161 mg/dL (75-99)
[2019-05-18] MEDS: ATORVASTATIN 20 MG TAB PO SCH (21:50)
[2019-05-19 05:05] LABS: Basophils % (A) 0 %; Eosinophils % (A) 0 %; HCT 26.2 % (39.0-53.0); Lymphocytes # (A) 1.2 k/uL (1.0-4.8); Lymphocytes % (A) 7 %; MCH 32.7 pg (25.0-35.0); MCV 96.1 fL (80.0-100.0); Mean Platelet Volume 7.1; Monocytes # (A) 0.4 k/uL (0-1.0); Monocytes % (A) 3 %; Neutrophils # (A) 16.3 k/uL (1.3-7.7); Neutrophils % (A) 90 %; Platelet Count 219 k/uL (150-450); RBC 2.72 m/uL (4.30-5.90); RDW 14.3 % (11.5-15.5); WBC 18.1 k/uL (3.8-10.6)
[2019-05-19 05:09] LABS: HGB 8.9 gm/dL (13.0-17.5)
[2019-05-19 05:13] LABS: Calcium 7.9 mg/dL (8.4-10.2); Potassium 3.6 mmol/L (3.5-5.1)
[2019-05-19] MEDS: CALCIUM CARBONATE LIQUID 500 MG/5 ML CUP PO SCH ×3 (06:54→17:28)
[2019-05-19 06:55] LABS: Glucose,Whole Blood 145 mg/dL (75-99)
[2019-05-19] MEDS: INSULIN ASPART (NovoLOG) 100 UNIT/ML VIAL SQ SCH ×4 (06:59→21:02)
[2019-05-19] MEDS: IPRATROPIUM-ALBUTEROL 3 ML NEB INHALATION SCH ×3 (08:35→19:42)
[2019-05-19] MEDS: BUDESONIDE 1 MG/2 ML NEBU INHALATION SCH ×2 (08:35→19:42)
[2019-05-19] MEDS: POTASSIUM CHLORIDE ER 20 MEQ TAB.ER PO SCH (09:35)
[2019-05-19] MEDS: guaiFENesin 600 MG TABLET.ER PO SCH ×2 (09:35→20:26)
[2019-05-19] MEDS: DICYCLOMINE 20 MG TAB PO SCH ×4 (09:35→21:01)
[2019-05-19] MEDS: MULTIVITAMINS, THERA 1 EACH TAB PO SCH (09:36)
[2019-05-19] MEDS: VIT A,C & E-LUTEIN-MINERALS 1 EACH TAB PO SCH ×2 (09:36→20:28)
[2019-05-19] MEDS: PANTOPRAZOLE 40 MG/10 ML VIAL IVP SCH ×2 (09:36→20:28)
[2019-05-19] MEDS: predniSONE 20 MG TAB PO SCH (09:36)
[2019-05-19] MEDS: METOPROLOL TARTRATE 25 MG TAB PO SCH ×2 (09:42→20:26)
--- NOTE | 2019-05-19 10:18 | PN ---
PROGRESS NOTE Mr. Guan is an 83-year-old male who presented with evidence of GI bleeding and abdominal discomfort. He had upper GI bleeding, underwent endoscopy yesterday. He is feeling well this morning. He has no further hematemesis or nausea. He is tolerating oral intake without much difficulty. He has underwent upper endoscopy yesterday by Dr. Shah and was found to have an antral ulcer and duodenal ulcer with esophagitis, but no evidence of active bleeding. Hemodynamically, he is stable. He continued to be in atrial fibrillation with controlled ventricular response. Hemodynamically, he has been stable. He continues to be at this point on Lipitor 20 mg daily, glipizide 2.5 mg daily, metoprolol tartrate 25 mg twice a day, Protonix, he is on prednisone. PHYSICAL EXAMINATION: Blood pressure 115/60 with a heart rate in the 80s. LUNGS: No wheezes or rales. HEART: Irregular regular. S1, S2. No S3. No rub appreciated. ABDOMEN: Soft, nontender, positive bowel sounds, no organomegaly. EXTREMITIES: No edema. LAB DATA: Revealed a hemoglobin of 8.9, white blood cell of 18.1. BUN and creatinine 47 and 0.93, potassium 3.6. IMPRESSION: 1. Gastrointestinal bleeding, stabilizing. 2. Chronic persistent atrial fibrillation. 3. Metastatic neuroendocrine pancreatic malignancy. 4. History of smoking. 5. Anemia. 6. History of coronary artery disease, stable. 7. Renal failure, improving. RECOMMENDATION: From the cardiac standpoint, will continue present therapy. I am hopeful that the patient will be transferred to telemetry floor today. Increase physical activity and if he is stable, probably discharged home soon and he will be followed as an outpatient. MMODL / IJN: [id number] /
--- NOTE | 2019-05-19 11:15 | P.PN ---
Progress Note - Text Progress Note Date: 05/18/19 Chief Complaint: Shortness of breath congested History of presenting complaint: This is a pleasant 83-year-old patient of Dr. Vic Hilario. Chronic stable medical conditions include diabetes mellitus type 2, hyperlipidemia, hypertension, osteoarthritis. Patient is foldable liver mass and recently a liver biopsy done. But his come back showing metastatic neuroendocrine carcinoma. Patient presented with noted below symptoms. Congested in the chest. Short of breath and wheezing. Patient has a long-standing watery diarrhea. Some abdominal pain. Patient has been followed by oncology and GI. Patient is . Has been getting weak and tired. Using a walker. Appetite is gone down. No fever no chills. Wheezing is present. Patient has been smoking for many years. The down to a few cigarettes a day. 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 Started on Sandostatin. Responded well. On 05/17/2019 patient started having coffee-ground emesis was moved to the ICU. Anticoagulation was held. Received 2 units of blood. NG tube was placed. Also had dark stools. Today-in ICU. had EGD oriented today. Showed severe esophagitis, gastric and duodenal ulcer. Tired and short of breath Review of systems: Was done for constitutional, cardiovascular, GI, pulmonary. relevant finding as above Current medications reviewed in today's electronic records Physical examination: VITAL SIGNS: 98.1, 96, 60, 11 5/47, 91% on 6 L GENERAL: Propped up in bed, tired appearing, short of breath EYES: Pupils equal. Conjunctiva pale HEENT: External appearance of nose and ears normal, oral cavity grossly normal. NECK: JVD unable to assess masses not palpable. HEART: Heart sounds irregular, no edema. LUNGS: Respiratory rate increased, some crackles ABDOMEN: Soft, mild midabdominal tenderness, no guarding or rigidity, liver spleen not palpable, no masses palpable. PSYCH: Alert and oriented x3; mood and affect tired INVESTIGATIONS, reviewed in the clinical context: White count 19.8 hemoglobin 10.6 progression 3.6 creatinine 1.39 Previous testing White count 16.4 hemoglobin 15.1 potassium 2.9 bun 57 creatinine 1.36 AST 60 02/20/2084 alk phos 416 proBNP 3260 albumin 2.8 EKG tracing personally reviewed by me-atrial fibrillation rate around 1:15 Chest x-ray film personally reviewed by me-some cardiomegaly, venous prominence, left pleural effusion liver mass biopsy showing metastatic neuroendocrine carcinoma Patient's creatinine was 0.76 in September of this year. 2-D echo-concentric left medical hypertrophy, EF 45-50% hypokinetic del rio. Assessment: -This is a patient has long-standing diarrhea abdominal pain, some respiratory symptoms with liver biopsy showing metastatic neuroendocrine carcinoma. - Possible carcinoid. Has responded well to Sandostatin. Diarrhea resolved. -Acute upper GI bleed, - on anticoagulation-now held -EGD shows-gastric ulcer, duodenal ulcer, severe esophagitis -Acute blood loss anemia, symptomatic, received 2 units of blood -Acute COPD exacerbation in a current smoker, much improved -Chronic nicotine dependence patient cigarette smoker -acute on chronic congestive heart failure, from systolic and diastolic dysfunction from underlying coronary artery disease, uncontrolled -Persistent atrial flutter fibrillation with uncontrolled, in the 120s today -Chronic Coumadin monitoring -Hyperlipidemia -Essential hypertension -Diabetes mellitus type 2 on oral hypoglycemic - acute kidney injury likely secondary to prerenal from persistent diarrhea decreased oral intake -Coronary artery disease, with stent Possible disposition: Home Plan: Status post EGD today. Given the above findings not a candidate for any anticoagulation. It is not for right now. Some worsening breathing status. Repeat chest x-ray in the morning. Keep a close and hemoglobin. Repeat renal function. We'll order chest x-ray for the morning.
--- NOTE | 2019-05-19 11:23 | P.PN ---
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 Patient was also complaining of nausea vomiting, watery diarrhea for one year. 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 Patient had at least a 40 pound weight loss over the last 6 months. And the profound weakness. On 05/14/2019, patient was admitted with shortness of breath which was felt to be a component of diastolic congestive heart failure and COPD. Patient was seen by many consultants including cardiology, and last night the patient was noted to have recurrent episodes of black tarry stools, and there was a significant drop in his hemoglobin. Arrangements were made to transfer the patient to the ICU, and I was asked to see him on consultation. Patient is now in the ICU, on 50% Ventimask, relatively hypotensive, hence I have ordered more fluids to be given, and the patient may require blood transfusion however his hemoglobin this morning is 8.9, and his hemoglobin on admission was 15.1. Patient was started on Protonix, GI was consulted, and at this point no plans to perform need immediate EGD, patient was on Eliquis just before he was admitted, and it is presently on hold. The patient is a very poor historian, seems to be restless agitated, does not answer questions properly, family is at bedside, and his CODE STATUS has been verified/DO NOT RESUSCITATE. Reevaluated today on 05/18/2019, patient remains in the intensive care unit, patient was getting more hypotensive yesterday, and he responded well to 2 units of packed RBCs given. He responded to fluid boluses. And a nasogastric tube was placed and retrieved significant amount of coffee-ground material in the stomach. Patient is scheduled to undergo EGD today. His hemoglobin today is 10.6, his initial hemoglobin on presentation was 15.1, went as low as 8.3, but he was extremely symptomatic, and hypotensive, improved with fluids and later on with 2 units of packed RBCs given. No active bleeding at present, patient continues to have a nasogastric tube in place, he is hemodynamically stable, and again he is scheduled to have EGD today. Patient was reevaluated today on 05/19/2019, he is still in the ICU, however I will arrange for the patient to be transferred to a regular medical floor today. His EGD was positive for 3 cm deep antral ulcer and was not actively bleeding and there was also antral ulcers which were not bleeding and a duodenal ulcer not bleeding there was also diffuse gastritis and esophagitis. Patient has been doing fairly well over the last 24 hours, no active bleeding is going on. Hemoglobin is 8.9. Rest of the labs were unremarkable. WBC count is 18.1. Hence I will arrange for the patient to be transferred out of the ICU to a regular medical floor. Objective - Vital Signs Vital signs: Vital Signs Temp 96.8 F L 05/19/19 08:00 Pulse 92 05/19/19 09:00 Resp 17 05/19/19 09:00 BP 108/52 05/19/19 09:00 Pulse Ox 98 05/19/19 09:00 Intake & Output 05/18/19 05/19/19 05/19/19 18:59 06:59 18:59 Intake Total 1600 900 795 Output Total 1250 1125 200 Balance 350 -225 595 Weight 71.6 kg Intake: IV 850 Sodium Chloride 0.9% 1, 750 000 ml @ 75 mls/hr IV . [id number] [facility] Rx#:[id number] Intake, IV Titration 150 900 75 Amount Dextrose 5% in Water 1, 150 900 75 000 ml @ 75 mls/hr IV . [id number] ONE Rx#:[id number] Oral 600 720 Output: Urine 1250 1125 200 Other: Voiding Method Indwelling Catheter Indwelling Catheter Indwelling Catheter # Emeses 0 - Exam GENERAL: Revealed 83-year-old white male, pleasant, in no distress. EYES: Pale conjunctiva his, no icterus, PERRLA, EOMI. HEENT: Dry mucous membranes, throat is clear, no neck masses, no JVD. No lymphadenopathy. NECK: No limitation in range of motion, no neck pain, no stridor. HEART: Irregular irregular rhythm, no S3 gallop, no murmur. LUNGS: Clear breath sound bilaterally no crackles or rhonchi or wheezes. ABDOMEN: Soft nontender no megaly no rebound, no guarding. PSYCH: Normal mood affect and normal mental status examination. NEUROLOGICAL: Alert and oriented 3, no gross focal neurologic deficits.. LYMPHATICS: No cervical adenopathy. Skin: No rashes. - Labs CBC & Chem 7: 05/19/19 04:26 05/19/19 04:26 Labs: Abnormal Lab Results - Last 24 Hours (Table) 05/18/19 05/18/19 05/18/19 Range/Units 12:10 12:11 12:35 WBC (3.8-10.6) k/uL RBC (4.30-5.90) m/uL Hgb (13.0-17.5) gm/dL Hct (39.0-53.0) % Neutrophils # (1.3-7.7) k/uL Chloride (98-107) mmol/L BUN (9-20) mg/dL Glucose (74-99) mg/dL POC Glucose (mg/dL) 47 L 50 L 55 L (75-99) mg/dL Calcium (8.4-10.2) mg/dL 05/18/19 05/18/19 05/18/19 Range/Units 12:49 12:51 13:08 WBC (3.8-10.6) k/uL RBC (4.30-5.90) m/uL Hgb (13.0-17.5) gm/dL Hct (39.0-53.0) % Neutrophils # (1.3-7.7) k/uL Chloride (98-107) mmol/L BUN (9-20) mg/dL Glucose (74-99) mg/dL POC Glucose (mg/dL) 33 L 43 L 37 L (75-99) mg/dL Calcium (8.4-10.2) mg/dL 05/18/19 05/18/19 05/19/19 Range/Units 14:03 20:28 04:26 WBC 18.1 H (3.8-10.6) k/uL RBC 2.72 L (4.30-5.90) m/uL Hgb 8.9 L D (13.0-17.5) gm/dL Hct 26.2 L (39.0-53.0) % Neutrophils # 16.3 H (1.3-7.7) k/uL Chloride (98-107) mmol/L BUN (9-20) mg/dL Glucose (74-99) mg/dL POC Glucose (mg/dL) 132 H 161 H (75-99) mg/dL Calcium (8.4-10.2) mg/dL 05/19/19 05/19/19 Range/Units 04:26 06:53 WBC (3.8-10.6) k/uL RBC (4.30-5.90) m/uL Hgb (13.0-17.5) gm/dL Hct (39.0-53.0) % Neutrophils # (1.3-7.7) k/uL Chloride 108 H (98-107) mmol/L BUN 47 H (9-20) mg/dL Glucose 146 H (74-99) mg/dL POC Glucose (mg/dL) 145 H (75-99) mg/dL Calcium 7.9 L (8.4-10.2) mg/dL Microbiology - Last 24 Hours (Table) 05/14/19 13:00 Blood Culture - Preliminary Blood No Growth after 96 hours Assessment and Plan Assessment: Impression: 1 acute GI bleeding, secondary to antral ulcers and duodenal ulcers and erosive gastritis and esophagitis. Although on EGD there was no active bleeding noted. 2 newly diagnosed neuroendocrine tumor of pancreatic origin, being followed by oncology. Plans are to treat him on outpatient basis. 3 chronic diarrhea, most likely secondary to metastatic neuroendocrine tumor. 4 history of type 2 diabetes 5 history of benign essential hypertension. 6 medical debility and significant weight loss over the last one year. 7 suspect some component of COPD and acute exacerbation. Patient is on bronchodilators. 8 chronic nicotine dependence, patient has been a heavy smoker over the years. 9 chronic atrial fibrillation 10 acute kidney injury secondary to hypotension, possibly acute tubular necrosis. Secondary to GI bleeding. 11 history of coronary artery disease and previous stent placement. 12 possible mild diastolic congestive heart failure. His LV function based on the echo is not significantly compromised 13 hypotension secondary to hypovolemia and hypovolemic shock. Resolved. Recommendation: Patient has demonstrated significant stability over the last 24 hours, hence I plan to transfer the patient out of the ICU to a regular medical floor. Continue to monitor daily hemoglobin and hematocrit. Continue Protonix 40 mg IV push twice a day, Continue to hold anticoagulation therapy Continue cardiac meds. Likely transfer to a regular medical floor today. And hopefully if the patient remains stable in the next 2 days, discharge planning. Time with Patient: Less than 30
[2019-05-19 11:39] LABS: Glucose,Whole Blood 208 mg/dL (75-99)
--- NOTE | 2019-05-19 11:52 | XR ---
EXAMINATION TYPE: XR chest 1V portable DATE OF EXAM: 05/19/2019 COMPARISON: 05/17/2019 HISTORY: Shortness of breath TECHNIQUE: Single frontal view of the chest is obtained. FINDINGS: Demonstrated are scattered senescent parenchymal change. Persistent basilar infiltrates an d small effusions without significant change. The heart is stable. Hilar and mediastinal structures a re within normal limits. Degenerative changes are seen of the dorsal spine. Calcification along the r ight paratracheal region likely vascular. Atherosclerotic change aorta. Mild hyperinflation. COPD in the differential diagnosis. Cardiac device stable. IMPRESSION: 1. Persistent basilar infiltrates and small effusions without significant change.
[2019-05-19 16:49] LABS: Glucose,Whole Blood 199 mg/dL (75-99)
--- NOTE | 2019-05-19 16:56 | PN ---
PROGRESS NOTE DATE OF DICTATION: 05/19/2019 Patient is an 83-year-old pleasant white male admitted to the hospital with newly diagnosed metastatic neuroendocrine tumor of pancreatic origin. He was having weakness and diarrhea. While in the hospital he developed acute upper GI bleed. He underwent an upper endoscopy yesterday that revealed 3 ulcerations in the gastric antrum, largest measuring 3 cm in size with no active bleeding. The patient has history of atrial fibrillation, has been on Eliquis, which has been on hold. Today he is feeling better. NG tube has been removed. He was on a clear liquid diet, tolerating well. He denies any symptoms. PHYSICAL EXAMINATION: Appears comfortable. No apparent distress. Vital signs are stable. Blood pressure 117/56, pulse rate 78, temperature afebrile. HEENT examination unremarkable. Conjunctivae pink. Sclerae anicteric. Oral cavity no lesions. NECK: No JVD or lymph node enlargement. CHEST: Clear to auscultation. HEART: Regular rate and rhythm. ABDOMEN: Soft. Bowel sounds are positive. No organomegaly. EXTREMITIES: No pedal edema. SKIN: No rashes. NEUROLOGIC: He is alert and oriented x3. No focal deficits. LABS: WBC 18.1, hemoglobin 8.9, platelets normal. Basic metabolic panel, BUN 47, creatinine 0.93. IMPRESSION: 1. Acute upper gastrointestinal bleed secondary to gastric antral ulcers, status post esophagogastroduodenoscopy yesterday that showed a 3 cm antral ulcer and two other small ulcerations with no active bleeding. Patient on IV Protonix 40 mg q.12 hours. On a clear liquid diet, tolerating well. 2. Metastatic neuroendocrine tumor of pancreas diagnosed 3 weeks ago. 3. Severe diarrhea, on Sandostatin 50 subcutaneously q.8 hours; doing well. 4. Atrial fibrillation, on Eliquis, currently on hold. RECOMMENDATIONS: 1. Continue to hold Eliquis. 2. Advance diet as tolerated. 3. Continue Protonix 40 mg q.12 hours. 4. Repeat CBC in the morning. Will follow with you closely. Thank you for this consultation. MMODL / IJN: [id number] /
--- NOTE | 2019-05-19 17:26 | PN ---
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 Currently the patient also had acute upper GI bleed and after EGD patient had abdominal pain and was transferred to ICU. Patient is being closely monitored at this time. The hemoglobin is 8.9, white count 18.1. The patient also had a chest x-ray today which showed persistent bibasilar infiltrates and a small effusion. The patient is being closely monitored. He was seen by multiple consultants. Past medical history reviewed. REVIEW OF SYSTEMS: CARDIOVASCULAR SYSTEM: As mentioned earlier. RESPIRATORY SYSTEM: As mentioned earlier. GI: As mentioned earlier. : No dysuria or retention. NERVOUS SYSTEM: No numbness, weakness. CURRENT MEDICATIONS: Reviewed. They include: 1. DuoNeb q.i.d. and p.r.n. 2. Lipitor. 3. Pulmicort. 4. Tums. 5. Bentyl 20 mg q.i.d. 6. Glucotrol. 7. Mucinex. 8. NovoLog. 9. Lactated Ringer's. 10.Lopressor. 11.Multivitamins. 12.Nitrostat. 13.Zofran. 14.K-Dur. 15.Prednisone 40 daily. PHYSICAL EXAMINATION: Patient is alert and oriented x3. Pulse 78, blood pressure 117/56, respiration 16, temperature 98 degrees, pulse ox 99% on 5 L. HEENT: Conjunctivae normal. NECK: No jugular venous distention. CARDIOVASCULAR SYSTEM: S1, S2 muffled. RESPIRATORY SYSTEM: Breath sounds diminished at the bases. A few scattered rhonchi and crackles. ABDOMEN: Soft, non-tender. No mass palpable. LEGS: No edema. No swelling. NERVOUS SYSTEM: Higher functions as mentioned earlier. Moves all 4 limbs. No focal motor or sensory deficit. LYMPHATICS: No lymph node palpable in neck, axillae or groin. SKIN: No ulcer, rash, bleeding. JOINTS: No active deforming arthropathy. LABS: WBC 18.1, hemoglobin 8.9. ASSESSMENT: 1. Acute bilateral pneumonia, possible bibasilar pneumonia, possibly Gram-negative. 2. Gastrointestinal bleed, status post esophagogastroduodenoscopy showing gastric ulcer, duodenal ulcer and severe esophagitis. 3. 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 4. Anemia; acute blood loss anemia, status post transfusion. 5. History of nicotine dependence. 6. Congestive heart failure with acute on chronic systolic and diastolic dysfunction with underlying coronary artery disease, uncontrolled. 7. Persistent atrial flutter/fibrillation. 8. Chronic Coumadin monitoring. 9. Hyperlipidemia. 10.Hypertension. 11.Diabetes mellitus, type 2. 12.Acute kidney injury. 13.Coronary artery disease, stent. RECOMMENDATIONS AND DISCUSSION: I recommend to continue current medications, continue with the monitoring, symptomatic treatment. I would also recommend continuing with the bronchodilators. I would also recommend empiric antibiotics. Guarded prognosis because of multiple complex medical issues. Further recommendations to follow. MMJAYLENEL / NOLBERTON: [id number] /
[2019-05-19] MEDS: AZTREONAM 2 GM in SODIUM CHLORIDE 0.9% 100 ML IVPB SCH ×2 (17:27→23:00)
[2019-05-19] MEDS: ATORVASTATIN 20 MG TAB PO SCH (20:26)
[2019-05-19 20:44] LABS: Glucose,Whole Blood 288 mg/dL (75-99)
[2019-05-20 05:16] LABS: Basophils % (A) 0 %; Eosinophils % (A) 0 %; HCT 29.1 % (39.0-53.0); HGB 9.7 gm/dL (13.0-17.5); Lymphocytes # (A) 1.9 k/uL (1.0-4.8); Lymphocytes % (A) 8 %; MCH 33.3 pg (25.0-35.0); MCHC 33.4 g/dL (31.0-37.0); MCV 99.5 fL (80.0-100.0); Mean Platelet Volume 7.7; Monocytes # (A) 0.9 k/uL (0-1.0); Monocytes % (A) 4 %; Neutrophils # (A) 22.1 k/uL (1.3-7.7); Neutrophils % (A) 88 %; Platelet Count 318 k/uL (150-450); RBC 2.93 m/uL (4.30-5.90); RDW 14.3 % (11.5-15.5); WBC 25.2 k/uL (3.8-10.6)
[2019-05-20 05:33] LABS: Potassium 4.1 mmol/L (3.5-5.1)
[2019-05-20 06:11] LABS: Glucose,Whole Blood 54 mg/dL (75-99)
[2019-05-20] MEDS: INSULIN ASPART (NovoLOG) 100 UNIT/ML VIAL SQ SCH ×4 (06:14→21:46)
[2019-05-20 06:26] LABS: Glucose,Whole Blood 51 mg/dL (75-99)
[2019-05-20] MEDS ORDERED: DEXTROSE 10 % IN WATER 250 ML IV ONE (06:29)
[2019-05-20 06:39] LABS: Glucose,Whole Blood 70 mg/dL (75-99)
[2019-05-20 07:01] LABS: Glucose,Whole Blood 117 mg/dL (75-99)
[2019-05-20] MEDS: BUDESONIDE 1 MG/2 ML NEBU INHALATION SCH ×2 (07:10→19:41)
[2019-05-20] MEDS: IPRATROPIUM-ALBUTEROL 3 ML NEB INHALATION SCH ×4 (07:10→19:41)
[2019-05-20] MEDS: AZTREONAM 2 GM in SODIUM CHLORIDE 0.9% 100 ML IVPB SCH ×2 (10:03→15:53)
[2019-05-20 10:04] LABS: Glucose,Whole Blood 202 mg/dL (75-99)
[2019-05-20] MEDS: CALCIUM CARBONATE LIQUID 500 MG/5 ML CUP PO SCH ×3 (10:04→17:14)
[2019-05-20] MEDS: PANTOPRAZOLE 40 MG/10 ML VIAL IVP SCH ×2 (10:04→21:33)
[2019-05-20] MEDS: predniSONE 20 MG TAB PO SCH (10:04)
[2019-05-20] MEDS: guaiFENesin 600 MG TABLET.ER PO SCH (10:05)
[2019-05-20] MEDS: VIT A,C & E-LUTEIN-MINERALS 1 EACH TAB PO SCH ×2 (10:05→21:35)
[2019-05-20] MEDS: POTASSIUM CHLORIDE ER 20 MEQ TAB.ER PO SCH (10:05)
[2019-05-20] MEDS: METOPROLOL TARTRATE 25 MG TAB PO SCH ×2 (10:05→21:35)
[2019-05-20] MEDS: MULTIVITAMINS, THERA 1 EACH TAB PO SCH (10:05)
[2019-05-20] MEDS: DICYCLOMINE 20 MG TAB PO SCH ×2 (10:06→11:56)
--- NOTE | 2019-05-20 10:47 | PN ---
PROGRESS NOTE DATE OF DICTATION: May 20, 2019 The patient is an 83-year-old pleasant white male who remains in the intensive care unit. He had an upper GI bleed and was transferred to the ICU 3 days ago. He had an upper endoscopy 2 days ago that showed large antral gastric ulcer and several small antral ulcers. Currently doing well on a regular diet tolerating well. No abdominal pain. No further episodes of nausea, vomiting. He did have some dark stools yesterday. Also has new diagnosis of metastatic neuroendocrine tumor for which Dr. Plata following the patient. PHYSICAL EXAMINATION: Appears comfortable in no apparent distress. Vital signs is stable. Blood pressure is 125/58, pulse 85, temperature 98. HEENT examination unremarkable. Conjunctivae pink. Sclerae anicteric. Oral cavity no lesions. NECK no JVD. No lymph node enlargement. CHEST was clear to auscultation. ABDOMEN: Soft. Bowel sounds are positive. No organomegaly. EXTREMITIES no pedal edema. SKIN no rashes. NEURO: He is alert and oriented x3. No focal deficits. LABS: From today WBC 25.2, hemoglobin 9.7, platelets are normal. BUN 37, creatinine 0.91. IMPRESSION: 1. Upper gastrointestinal bleed, resolved, status post EGD 3 days ago, which revealed antral ulcers. Presently on Protonix 40 mg twice daily and a regular diet, tolerating well. No further episodes of bleeding. 2. Metastatic neuroendocrine tumor diagnosed recently. Dr. Plata following the patient. 3. Leukocytosis. 4. History of congestive heart failure. 5. Atrial fibrillation on Eliquis, currently on hold. RECOMMENDATIONS: 1. Continue with Protonix 40 mg twice daily. 2. Continue with regular diet. 3. Monitor CBC on a daily basis. 4. Continue Sandostatin for chronic diarrhea. 5. We will follow with you closely. MMODL / IJN: [id number] /
--- NOTE | 2019-05-20 11:41 | PN ---
PROGRESS NOTE This patient's clinical panel and hemodynamics and medications reviewed. Patient was admitted with weakness. He has an upper GI bleed. The patient was found to have a gastric ulcer. The patient remains stable cardiac-hale. Denies any chest pain or shortness of breath. The patient's hemoglobin remains stable. No active bleeding is noted at present. The patient's blood pressure is 125/58 mmHg. First and second heart sounds are normal. Lungs are clinically clear to auscultation and percussion. LABORATORY DATA: Hemoglobin is stable. Continue the current medications. Patient will be transferred to the Med/surg floor. We will resume the patient's anticoagulation after a couple of weeks and when it is okay with the GI service. MMODL / IJN: [id number] /
--- NOTE | 2019-05-20 11:44 | P.PN ---
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 Patient was also complaining of nausea vomiting, watery diarrhea for one year. 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 Patient had at least a 40 pound weight loss over the last 6 months. And the profound weakness. On 05/14/2019, patient was admitted with shortness of breath which was felt to be a component of diastolic congestive heart failure and COPD. Patient was seen by many consultants including cardiology, and last night the patient was noted to have recurrent episodes of black tarry stools, and there was a significant drop in his hemoglobin. Arrangements were made to transfer the patient to the ICU, and I was asked to see him on consultation. Patient is now in the ICU, on 50% Ventimask, relatively hypotensive, hence I have ordered more fluids to be given, and the patient may require blood transfusion however his hemoglobin this morning is 8.9, and his hemoglobin on admission was 15.1. Patient was started on Protonix, GI was consulted, and at this point no plans to perform need immediate EGD, patient was on Eliquis just before he was admitted, and it is presently on hold. The patient is a very poor historian, seems to be restless agitated, does not answer questions properly, family is at bedside, and his CODE STATUS has been verified/DO NOT RESUSCITATE. Reevaluated today on 05/18/2019, patient remains in the intensive care unit, patient was getting more hypotensive yesterday, and he responded well to 2 units of packed RBCs given. He responded to fluid boluses. And a nasogastric tube was placed and retrieved significant amount of coffee-ground material in the stomach. Patient is scheduled to undergo EGD today. His hemoglobin today is 10.6, his initial hemoglobin on presentation was 15.1, went as low as 8.3, but he was extremely symptomatic, and hypotensive, improved with fluids and later on with 2 units of packed RBCs given. No active bleeding at present, patient continues to have a nasogastric tube in place, he is hemodynamically stable, and again he is scheduled to have EGD today. Patient was reevaluated today on 05/19/2019, he is still in the ICU, however I will arrange for the patient to be transferred to a regular medical floor today. His EGD was positive for 3 cm deep antral ulcer and was not actively bleeding and there was also antral ulcers which were not bleeding and a duodenal ulcer not bleeding there was also diffuse gastritis and esophagitis. Patient has been doing fairly well over the last 24 hours, no active bleeding is going on. Hemoglobin is 8.9. Rest of the labs were unremarkable. WBC count is 18.1. Hence I will arrange for the patient to be transferred out of the ICU to a regular medical floor. Reevaluated today on 05/20/2019, patient is doing great, asking to be discharged home. He had issues with low blood sugar earlier today, he was given D50 and later on had to be given insulin. At any rate from the pulmonary perspective, patient is doing well, denies any cough no wheezing no shortness of breath, no active GI bleeding, hemoglobin is stable today, it is 9.7. Patient received a total of 2 units packed RBCs since admission. Objective - Vital Signs Vital signs: Vital Signs Temp 97.7 F 05/20/19 07:00 Pulse 84 05/20/19 07:25 Resp 12 05/20/19 07:00 BP 125/50 05/20/19 07:00 Pulse Ox 95 05/20/19 07:00 Intake & Output 05/19/19 05/20/19 05/20/19 18:59 06:59 18:59 Intake Total 1275 100 Output Total 485 300 Balance 790 -200 Intake: IV 100 Aztreonam 2 gm In Sodium 100 Chloride 0.9% 100 ml @ 100 mls/hr IVPB Q8HR [facility] Rx#:[id number] Intake, IV Titration 75 Amount Dextrose 5% in Water 1, 75 000 ml @ 75 mls/hr IV . [id number] ONE Rx#:[id number] Oral 1200 Output: Urine 485 300 Other: Voiding Method Indwelling Catheter Urinal # Voids 0 # Bowel Movements 1 - Exam GENERAL: Revealed 83-year-old white male, pleasant, on room air, in no distress. EYES: Pale conjunctiva his, no icterus, PERRLA, EOMI. HEENT: Dry mucous membranes, throat is clear, no neck masses, no JVD. No lymphadenopathy. NECK: No limitation in range of motion, no neck pain, no stridor. HEART: Irregular irregular rhythm, no S3 gallop, no murmur. LUNGS: Clear breath sound bilaterally no crackles or rhonchi or wheezes. ABDOMEN: Soft nontender no megaly no rebound, no guarding. PSYCH: Normal mood affect and normal mental status examination. NEUROLOGICAL: Alert and oriented 3, no gross focal neurologic deficits.. LYMPHATICS: No cervical adenopathy. Skin: No rashes. - Labs CBC & Chem 7: 05/20/19 04:44 05/20/19 04:44 Labs: Abnormal Lab Results - Last 24 Hours (Table) 05/19/19 05/19/19 05/20/19 Range/Units 16:48 20:43 04:44 WBC 25.2 H (3.8-10.6) k/uL RBC 2.93 L (4.30-5.90) m/uL Hgb 9.7 L (13.0-17.5) gm/dL Hct 29.1 L (39.0-53.0) % Neutrophils # 22.1 H (1.3-7.7) k/uL BUN (9-20) mg/dL Glucose (74-99) mg/dL POC Glucose (mg/dL) 199 H 288 H (75-99) mg/dL 05/20/19 05/20/19 05/20/19 Range/Units 04:44 06:09 06:25 WBC (3.8-10.6) k/uL RBC (4.30-5.90) m/uL Hgb (13.0-17.5) gm/dL Hct (39.0-53.0) % Neutrophils # (1.3-7.7) k/uL BUN 37 H (9-20) mg/dL Glucose 42 L* (74-99) mg/dL POC Glucose (mg/dL) 54 L 51 L (75-99) mg/dL 05/20/19 05/20/19 05/20/19 Range/Units 06:37 07:00 10:02 WBC (3.8-10.6) k/uL RBC (4.30-5.90) m/uL Hgb (13.0-17.5) gm/dL Hct (39.0-53.0) % Neutrophils # (1.3-7.7) k/uL BUN (9-20) mg/dL Glucose (74-99) mg/dL POC Glucose (mg/dL) 70 L 117 H 202 H (75-99) mg/dL Microbiology - Last 24 Hours (Table) 05/14/19 13:00 Blood Culture - Preliminary Blood No Growth after 120 hours Assessment and Plan Assessment: Impression: 1 acute GI bleeding, secondary to antral ulcers and duodenal ulcers and erosive gastritis and esophagitis. Although on EGD there was no active bleeding noted. 2 newly diagnosed neuroendocrine tumor of pancreatic origin, being followed by oncology. Plans are to treat him on outpatient basis. 3 chronic diarrhea, most likely secondary to metastatic neuroendocrine tumor. 4 history of type 2 diabetes 5 history of benign essential hypertension. 6 medical debility and significant weight loss over the last one year. 7 suspect some component of COPD and acute exacerbation. Patient is on bronchodilators. 8 chronic nicotine dependence, patient has been a heavy smoker over the years. 9 chronic atrial fibrillation 10 acute kidney injury secondary to hypotension, possibly acute tubular necrosis. Secondary to GI bleeding. 11 history of coronary artery disease and previous stent placement. 12 possible mild diastolic congestive heart failure. His LV function based on the echo is not significantly compromised 13 hypotension secondary to hypovolemia and hypovolemic shock. Resolved. Recommendation: Continue present supportive care measures. Continue Protonix twice a day. Patient could be transferred out of the ICU to a regular medical floor, could even be discharged home if cleared by gastroenterology. We'll sign off and see when necessary. Time with Patient: Less than 30
[2019-05-20 11:50] LABS: Glucose,Whole Blood 178 mg/dL (75-99)
[2019-05-20] MEDS ORDERED: FUROSEMIDE 10 MG/ML 4 ML VIAL IV STA (15:23)
[2019-05-20 16:39] LABS: Glucose,Whole Blood 76 mg/dL (75-99)
--- NOTE | 2019-05-20 17:02 | XR ---
EXAMINATION TYPE: XR chest 1V portable DATE OF EXAM: 05/20/2019 COMPARISON: 05/19/2019 HISTORY: Shortness of breath TECHNIQUE: Single frontal view of the chest is obtained. FINDINGS: Bilateral infiltrate and pleural effusion stable. Cardiac device noted. No pneumothorax. A therosclerotic change aorta. Diffuse osteopenia. IMPRESSION: Stable bilateral infiltrate and pleural effusion.
--- NOTE | 2019-05-20 18:23 | PN ---
PROGRESS NOTE DATE OF SERVICE: 05/20/2019. This 83-year-old gentleman with multiple complex medical issues. The patient has CHF acute exacerbation. 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 The patient also had upper GI bleed. EGD showed multiple ulcerations. Patient is complaining of some abdominal distention, generalized edema at this time. Otherwise, the patient is being closely monitored. Multiple consultants following the patient including Cardiology, pulmonology, Gastroenterology. Diet has been advanced by gastroenterology. The most recent blood sugars were noted which is fluctuating going down to 42 and 51. WBC is 25.2, hemoglobin 9.7. Other labs are noted. PAST MEDICAL HISTORY: Reviewed. REVIEW OF SYSTEMS: Cardiovascular system: As mentioned earlier. RESPIRATORY: As mentioned earlier. GI: As mentioned earlier. no dysuria. Nervous system: Diffusely weak. CURRENT MEDICATIONS: Reviewed and include: 1. DuoNeb q.i.d. and p.r.n. 2. Lipitor 10 mg q.h.s. 3. Aztreonam 2 g IV q.8h. 4. Pulmicort 1 mg b.i.d. 5. Tums. 6. Bentyl. 7. Calcitriol. 8. Mucinex. 9. NovoLog. 10.Lopressor. 11.Multivitamins 1 p.o. daily. 12.I-Edil. 13.Nitrostat. 14.Zofran. 15.K-Dur 20 mEq. PHYSICAL EXAM: Patient is alert, oriented x3. Pulse is 70. Blood pressure is 125/50. Respiration 12, temperature 97.7, pulse ox 94% on 3 L. HEENT: Conjunctivae normal. NECK: No JVD. CARDIOVASCULAR: S1, S2 muffled. RESPIRATORY: Breath sounds diminished in the bases. Bilateral scattered rhonchi and expiratory wheezing also present. ABDOMEN: Soft, obese mild diffuse distention present. No mass palpable. LEGS: No edema. No swelling. NERVOUS SYSTEM: Higher functions as mentioned earlier. Moves all 4 limbs. No focal motor or sensory deficits. Lymphatics: No lymph nodes palpable in the neck, axillae or groin. SKIN: No ulcer, no rash and no bleeding. JOINTS: No active deforming arthropathy. LABS: WBC 25.9, hemoglobin 9.7, mostly neutrophilia. Sodium 138, potassium 4.1 and glucose 42. Accu-Cheks are checked. The most recent chest x-ray done yesterday was personally reviewed by me and showed bilateral pleural effusion, atelectasis also. ASSESSMENT: 1. Acute bilateral pneumonia, possible bibasilar pneumonia possibly gram-negative. 2. Gastrointestinal bleed, status post EGD showing gastric ulcer, duodenal ulcer and severe esophagitis. 3. 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 4. Anemia, acute blood loss anemia status post transfusion. 5. History of nicotine dependence. 6. Congestive heart failure with acute on chronic systolic dysfunction with underlying coronary artery disease. 7. Persistent atrial fibrillation. 8. Chronic Coumadin monitoring. 9. Hyperlipidemia. 10.Hypertension. 11.Diabetes mellitus type 2. 12.Acute kidney injury. 13.Coronary artery disease, stent. 14.NO CODE, NO CPR, NO VENT. RECOMMENDATIONS AND DISCUSSION: This 83-year-old gentleman who presented with multiple complex medical issues, we will monitor the patient closely, continue the current management and continue symptomatic treatment. I would recommend continue with IV antibiotics and we will stop the IV fluids. Monitor. Stop the glipizide also. I would continue the glipizide only when the patient is fully p.o. Otherwise, monitor blood sugars closely. The p.o. prednisone will change it to IV methylprednisone. Otherwise, I would continue the rest of medications. I would also recommend a single dose of Lasix also. Guarded prognosis. Further recommendations to follow. See orders for details. MMODL / IJN: [id number] /
[2019-05-20 20:33] LABS: Glucose,Whole Blood 117 mg/dL (75-99)
[2019-05-20] MEDS ORDERED: FUROSEMIDE 10 MG/ML 2 ML VIAL IV SCH (21:00)
[2019-05-20] MEDS: methylPREDNISolone SOD SUCCI 40 MG/ML 1 ML VIAL IV SCH (21:34)
[2019-05-20] MEDS: ATORVASTATIN 20 MG TAB PO SCH (21:35)
[2019-05-21] MEDS: AZTREONAM 2 GM in SODIUM CHLORIDE 0.9% 100 ML IVPB SCH ×4 (00:05→23:12)
[2019-05-21 04:42] LABS: Basophils % (A) 0 %; Eosinophils % (A) 0 %; HCT 26.8 % (39.0-53.0); HGB 9.1 gm/dL (13.0-17.5); Lymphocytes # (A) 1.2 k/uL (1.0-4.8); Lymphocytes % (A) 7 %; MCH 33.2 pg (25.0-35.0); MCHC 33.9 g/dL (31.0-37.0); MCV 98.2 fL (80.0-100.0); Mean Platelet Volume 6.6; Monocytes # (A) 0.3 k/uL (0-1.0); Monocytes % (A) 2 %; Neutrophils # (A) 14.8 k/uL (1.3-7.7); Neutrophils % (A) 90 %; Platelet Count 303 k/uL (150-450); RBC 2.73 m/uL (4.30-5.90); RDW 14.6 % (11.5-15.5); WBC 16.3 k/uL (3.8-10.6)
[2019-05-21 04:51] LABS: African American GFR (CKD) >90 (>60 ml/min/1.73 sqM); Anion Gap 4 mmol/L; Blood Urea Nitrogen 29 mg/dL (9-20); Calcium 8.8 mg/dL (8.4-10.2); Carbon Dioxide 26 mmol/L (22-30); Chloride 105 mmol/L (98-107); Glucose 97 mg/dL (74-99); Non-African American GFR(CKD) 79 (>60 ml/min/1.73 sqM); Potassium 4.2 mmol/L (3.5-5.1); Sodium 135 mmol/L (137-145)
[2019-05-21 07:00] LABS: Glucose,Whole Blood 83 mg/dL (75-99)
[2019-05-21] MEDS: CALCIUM CARBONATE LIQUID 500 MG/5 ML CUP PO SCH ×3 (07:14→17:09)
[2019-05-21] MEDS: INSULIN ASPART (NovoLOG) 100 UNIT/ML VIAL SQ SCH ×4 (07:32→21:30)
[2019-05-21] MEDS: BUDESONIDE 1 MG/2 ML NEBU INHALATION SCH ×2 (07:34→21:21)
[2019-05-21] MEDS: IPRATROPIUM-ALBUTEROL 3 ML NEB INHALATION SCH ×3 (07:34→21:21)
[2019-05-21] MEDS: FUROSEMIDE 10 MG/ML 2 ML VIAL IV SCH (08:18)
[2019-05-21] MEDS: PANTOPRAZOLE 40 MG/10 ML VIAL IVP SCH ×2 (08:18→21:26)
[2019-05-21] MEDS: methylPREDNISolone SOD SUCCI 40 MG/ML 1 ML VIAL IV SCH ×2 (08:18→21:32)
[2019-05-21] MEDS: POTASSIUM CHLORIDE ER 20 MEQ TAB.ER PO SCH (08:19)
[2019-05-21] MEDS: VIT A,C & E-LUTEIN-MINERALS 1 EACH TAB PO SCH ×2 (08:19→21:02)
[2019-05-21] MEDS: MULTIVITAMINS, THERA 1 EACH TAB PO SCH (08:19)
[2019-05-21] MEDS: METOPROLOL TARTRATE 25 MG TAB PO SCH ×2 (08:19→20:53)
[2019-05-21 11:16] LABS: Glucose,Whole Blood 156 mg/dL (75-99)
--- NOTE | 2019-05-21 12:07 | PN ---
PROGRESS NOTE DATE OF SERVICE: May 21, 2019. REQUESTING PHYSICIAN: Dr. Vic Hilario The patient is an 83-year-old pleasant white male admitted to the hospital to intensive care unit with acute upper GI bleed. Three days ago he underwent an upper endoscopy that showed large gastric ulcers, presently on Protonix 40 mg twice a day. Patient still has black tarry stools. He denies any abdominal pain. His diet was advanced to regular diet last night and yesterday. He is able to tolerate well. He denies any symptoms. Reports no chest pain or shortness of breath. He was started on broad-spectrum antibiotics for possible bilateral pneumonia. Leukocytosis is improving. PHYSICAL EXAMINATION: He appears comfortable, no apparent distress. Vital signs stable. Blood pressure 125/90, pulse is 76, temperature 97.9. HEENT examination unremarkable. Conjunctivae pink. Sclerae anicteric. Oral cavity no lesions. NECK: No JVD or lymph node enlargement. CHEST was clear to auscultation. ABDOMEN: Soft. Bowel sounds are positive. No organomegaly. EXTREMITIES no pedal edema. NEURO: He is alert, oriented x 3. LABS: From today WBC 16.3, hemoglobin 9.1, platelets 303. BUN and creatinine normal. IMPRESSION: 1. Acute upper gastrointestinal bleed, status post EGD 4 days ago that showed antral ulcers, largest measuring 3 cm on Protonix 40 mg twice daily. Still has some dark colored stools, but hemoglobin stable at 9.1 g/dL. 2. Metastatic neuroendocrine tumor diagnosed 2 weeks ago. 3. Bilateral pneumonia on broad-spectrum antibiotics. 4. Chronic pancreatic insufficiency with chronic diarrhea, presently resolved. He is on pancreatic supplements as well as Sandostatin. RECOMMENDATIONS: 1. Continue Protonix 40 mg twice daily. 2. Advance to regular diet. 3. Continue broad-spectrum antibiotics. 4. We will sign off at this time. Patient was advised to follow up in the office in a month following discharge from the hospital. Thank you for this consultation. MMODL / IJN: [id number] /
--- NOTE | 2019-05-21 14:22 | PN ---
PROGRESS NOTE DATE OF SERVICE: 05/21/2019 This 83-year-old gentleman who was admitted with acute bilateral pneumonia also had multiple other medical problems including GI bleed. The patient also had metastatic neuroendocrine carcinoma as revealed by a recent liver biopsy, multiple consultants are following the patient closely. The most recent chest x-ray which was personally reviewed by me showed significant lesions in bilateral lower lobes with right more than the left. Hemoglobin today is 9.1, white count is 16.3. The patient has been started on broad spectrum IV antibiotics for possible pneumonia. PAST MEDICAL HISTORY: Reviewed. REVIEW OF SYSTEMS: CARDIOVASCULAR system: No angina or palpitations. RESPIRATORY: As mentioned earlier. GASTROINTESTINAL: As mentioned earlier. : No dysuria or retention. CENTRAL NERVOUS SYSTEM: No numbness or weakness. CURRENT MEDICATIONS: Reviewed and include: 1. DuoNeb q.i.d. and p.r.n. 2. Lipitor 20 mg q.h.s. 3. Azactam 2 g IV q.8h. 4. Pulmicort. 5. Lasix 20 mg IV daily. 6. Solu-Medrol 20 mg IV b.i.d. 7. Lopressor 25 mg b.i.d. 8. Multivitamins 1 daily. 9. I-Edil. 10.Nitrostat. 11.Creon-D. 12.Zofran. 13.Protonix IV b.i.d. 14.K-Dur 20 mEq p.o. daily. PHYSICAL EXAM: Patient is alert, oriented x3. Pulse 76. Blood pressure 120/90, respiration 18, temperature 97.2, pulse ox 92% on 3 L. HEENT is conjunctivae pale. Oral mucosa moist. NECK is no jugular venous distention. No carotid bruit. No thyroid enlargement. CARDIOVASCULAR system: S1, S2 muffled. No S3, no S4. RESPIRATORY: Breath sounds diminished in the bases. A few scattered rhonchi and crackles. ABDOMEN: Soft, minimal diffuse distention. No mass palpable. No guarding. No rigidity. No tenderness. LEGS: No edema. No swelling. NERVOUS SYSTEM: No focal deficits. LABS: WBC 16.2, hemoglobin 9.1. Sodium 135. ASSESSMENT: 1. Acute bilateral pneumonia, possible bibasilar pneumonia possibly gram-negative. 2. Acute gastrointestinal bleed status post EGD showing gastric ulcer, duodenal ulcer and severe esophagitis with acute blood loss anemia. 3. 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 4. Anemia, acute on chronic blood-loss anemia, status post transfusion. 5. History of nicotine dependence. 6. History of congestive heart failure, with acute on chronic systolic dysfunction with underlying coronary artery disease. 7. Persistent atrial fibrillation. 8. Chronic Coumadin monitoring. 9. Hyperlipidemia. 10.Hypertension. 11.Diabetes mellitus type 2. 12.Acute kidney injury. 13.Coronary artery disease, stent. 14.NO CODE, NO CPR, NO VENT. RECOMMENDATIONS AND DISCUSSION: Recommend to continue current medications, continue with monitoring, symptomatic treatment. Otherwise at this time, I recommend to continue with IV antibiotics. Continue the bronchodilators. Monitor hemoglobin closely. Cautious IV diuretics. Keep on IV steroids and guarded prognosis because of multiple complex medical issues. Once cleared by multiple consultants, the patient might be able to go home. Currently the prognosis guarded. We will need close monitoring. MMODL / IJN: [id number] /
[2019-05-21 16:47] LABS: Glucose,Whole Blood 212 mg/dL (75-99)
[2019-05-21] MEDS: ATORVASTATIN 20 MG TAB PO SCH (20:53)
[2019-05-21 21:31] LABS: Glucose,Whole Blood 175 mg/dL (75-99)
[2019-05-22 04:52] LABS: Basophils % (A) 0 %; Eosinophils % (A) 0 %; HCT 28.9 % (39.0-53.0); HGB 9.6 gm/dL (13.0-17.5); Lymphocytes % (A) 6 %; MCH 32.7 pg (25.0-35.0); MCHC 33.2 g/dL (31.0-37.0); MCV 98.5 fL (80.0-100.0); Mean Platelet Volume 6.7; Monocytes # (A) 0.6 k/uL (0-1.0); Monocytes % (A) 4 %; Neutrophils # (A) 13.8 k/uL (1.3-7.7); Neutrophils % (A) 88 %; Platelet Count 324 k/uL (150-450); RBC 2.93 m/uL (4.30-5.90); RDW 14.5 % (11.5-15.5); WBC 15.7 k/uL (3.8-10.6)
[2019-05-22 04:59] LABS: Albumin 2.2 g/dL (3.5-5.0); Bilirubin, Delta 0.5 mg/dL (0.0-0.2); Bilirubin,Unconjugated 0.1 mg/dL (0.0-1.1); Calcium 8.8 mg/dL (8.4-10.2); Potassium 4.2 mmol/L (3.5-5.1); Total Bilirubin 0.6 mg/dL (0.2-1.3); Total Protein 4.4 g/dL (6.3-8.2)
[2019-05-22] MEDS: INSULIN ASPART (NovoLOG) 100 UNIT/ML VIAL SQ SCH ×4 (06:42→20:20)
[2019-05-22 06:43] LABS: Glucose,Whole Blood 132 mg/dL (75-99)
[2019-05-22] MEDS: CALCIUM CARBONATE LIQUID 500 MG/5 ML CUP PO SCH ×3 (07:01→18:48)
[2019-05-22] MEDS: BUDESONIDE 1 MG/2 ML NEBU INHALATION SCH ×2 (08:26→20:31)
[2019-05-22] MEDS: IPRATROPIUM-ALBUTEROL 3 ML NEB INHALATION SCH ×3 (08:26→20:31)
[2019-05-22] MEDS: AZTREONAM 2 GM in SODIUM CHLORIDE 0.9% 100 ML IVPB SCH ×3 (09:29→23:52)
[2019-05-22] MEDS: POTASSIUM CHLORIDE ER 20 MEQ TAB.ER PO SCH (09:29)
[2019-05-22] MEDS: METOPROLOL TARTRATE 25 MG TAB PO SCH ×2 (09:30→20:29)
[2019-05-22] MEDS: FUROSEMIDE 10 MG/ML 2 ML VIAL IV SCH (09:30)
[2019-05-22] MEDS: methylPREDNISolone SOD SUCCI 40 MG/ML 1 ML VIAL IV SCH ×2 (09:30→20:28)
[2019-05-22] MEDS: MULTIVITAMINS, THERA 1 EACH TAB PO SCH (09:30)
[2019-05-22] MEDS: PANTOPRAZOLE 40 MG/10 ML VIAL IVP SCH (09:31)
[2019-05-22] MEDS: VIT A,C & E-LUTEIN-MINERALS 1 EACH TAB PO SCH ×2 (09:31→20:29)
[2019-05-22 10:16] VITALS: BMI 23.9
[2019-05-22 11:43] LABS: Glucose,Whole Blood 77 mg/dL (75-99)
--- NOTE | 2019-05-22 13:23 | P.PN ---
Subjective This is a pleasant 83 years old male with past medical history of metastatic neuroendocrine cancer diagnosed recently about 2 weeks earlier with chronic diarrhea, he presented because of bilateral pneumonia and upper GI bleed/coffee- ground vomitus, he underwent EGD showing by 3 cm antral ulcer, patient is been treated with Protonix 40 mg twice daily which can be switched orally at the same dose today. Also has a small dose of Solu-Medrol 20 mg twice a day, he is on IV Lasix 20 mg once daily and is a trend. Patient is seen today in the ICU Patient has been showing improvement in his breathing and his WBC is trending down gradually to 15.7 K today, hemoglobin stable at 9.6. However his liver enzymes increased about 4 folds with AST 69 to 250, ALT went up from 84 up to 418 and alkaline phosphatase 416 up to 793. Patient has no upper right upper quadrant complaint. Liver ultrasound is ordered and were going to reconsult GI team. Patient oxygen requirement was down to 0 at rest with oxygen saturation 91%, with exertion his oxygen saturation went up to 97 on room air, looks like patient does not need home oxygen although he is still somewhat dyspneic from his pneumonia pulmonary/critical care team already signed off. Review of systems CONSTITUTIONAL: No fever, no malaise, no fatigue. HEENT: No recent visual problems or hearing problems. Denied any sore throat. CARDIOVASCULAR: No orthopnea, PND, no palpitations, no syncope. PULMONARY: no hemoptysis. GASTROINTESTINAL: No diarrhea, no nausea, no vomiting, no abdominal pain. NEUROLOGICAL: No headaches, no weakness, no numbness. HEMATOLOGICAL: Denies any bleeding or petechiae. Active Medications Generic Name Dose Route Start Last Admin Trade Name Brennon PRN Reason Stop Dose Admin Albuterol/Ipratropium 3 ml 05/17/19 09:00 05/22/19 08:26 Duoneb 0.5 Mg-3 Mg/3 Ml Soln INHALATION 3 ml TID BRODERICK Administration Atorvastatin Calcium 20 mg 05/14/19 21:00 05/21/19 20:53 Lipitor PO 20 mg HS BRODERICK Administration Budesonide 1 mg 05/14/19 22:09 05/22/19 08:26 Pulmicort INHALATION 1 mg RT-BID BRODERICK Administration Calcium Carbonate/Glycine 500 mg 05/14/19 17:30 05/22/19 12:28 Tums Liquid PO 500 mg TID-W/MEALS BRODERICK Administration Furosemide 20 mg 05/21/19 09:00 05/22/19 09:30 Lasix IV 20 mg DAILY BRODERICK Administration Aztreonam 2 gm/ Sodium 100 mls @ 100 mls/hr 05/19/19 16:45 05/22/19 09:29 Chloride IVPB 100 mls/hr Q8HR BRODERICK Administration Protocol Insulin Aspart 0 unit 05/19/19 07:30 05/22/19 12:26 Novolog SQ Not Given ACHS [facility] Protocol Methylprednisolone Sodium Succinate 20 mg 05/20/19 21:00 05/22/19 09:30 Solu-Medrol IV 20 mg Q12HR BRODERICK Administration Metoprolol Tartrate 25 mg 05/18/19 09:00 05/22/19 09:30 Lopressor PO 25 mg BID BRODERICK Administration Multivitamins 1 each 05/15/19 09:00 05/22/19 09:30 Theragran PO 1 each DAILY BRODERICK Administration Multivitamins/Minerals 1 each 05/14/19 21:00 05/22/19 09:31 Ivite PO 1 each BID BRODERICK Administration Nitroglycerin 0.4 mg 05/14/19 14:43 Nitrostat SUBLINGUAL Q5M PRN Chest Pain Creon (Lipase/ 3 cap 05/14/19 21:00 05/22/19 12:28 Protease/Amylase) 24 PO 3 cap ,000 Units Capsule ACHS BRODERICK Administration Ondansetron HCl 8 mg 05/14/19 14:43 05/16/19 22:23 Zofran PO 8 mg Q8H PRN Administration Nausea Ondansetron HCl 4 mg 05/17/19 01:01 05/17/19 08:08 Zofran IVP 4 mg Q6HR PRN Administration Nausea And Vomiting Pantoprazole Sodium 40 mg 05/22/19 17:30 Protonix PO AC-BID BRODERICK Potassium Chloride 20 meq 05/15/19 09:00 05/22/19 09:29 K-Dur 20 PO 20 meq DAILY BRODERICK Administration Objective - Vital Signs Vital signs: Vital Signs Temp 97.5 F L 05/22/19 08:00 Pulse 85 05/22/19 11:15 Resp 14 05/22/19 08:00 BP 127/61 05/22/19 08:00 Pulse Ox 91 L 05/22/19 11:15 Intake & Output 05/21/19 05/22/19 05/22/19 18:59 06:59 18:59 Intake Total 1200 350 100 Output Total 3100 250 575 Balance -1900 100 -475 Weight 71.4 kg 71.4 kg Intake: IV 200 100 100 Aztreonam 2 gm In Sodium 200 100 100 Chloride 0.9% 100 ml @ 100 mls/hr IVPB Q8HR [facility] Rx#:[id number] Oral 1000 250 Output: Urine 3100 250 575 Other: Voiding Method Urinal Urinal Urinal # Voids 2 1 # Bowel Movements 1 - Exam -GENERAL: The patient is alert and oriented x3, not in any acute distress. Thin build and emaciated HEENT: Pupils are round and equally reacting to light. EOMI. No scleral icterus. No conjunctival pallor. Normocephalic, atraumatic. No pharyngeal erythema. No thyromegaly. CARDIOVASCULAR: S1 and S2 present. No murmurs, rubs, or gallops. -PULMONARY: Somewhat tachypneic. Chest is clear to auscultation, no wheezing or crackles. ABDOMEN: Soft, nontender, nondistended, normoactive bowel sounds. No palpable organomegaly. MUSCULOSKELETAL: No joint swelling or deformity. EXTREMITIES: No cyanosis, clubbing, or pedal edema. NEUROLOGICAL: Gross neurological examination did not reveal any focal deficits. SKIN: No rashes. no petechiae. - Labs CBC & Chem 7: 05/22/19 04:23 05/22/19 04:23 Labs: Abnormal Lab Results - Last 24 Hours (Table) 05/21/19 05/21/19 05/22/19 Range/Units 16:46 21:30 04:23 WBC 15.7 H (3.8-10.6) k/uL RBC 2.93 L (4.30-5.90) m/uL Hgb 9.6 L (13.0-17.5) gm/dL Hct 28.9 L (39.0-53.0) % Neutrophils # 13.8 H (1.3-7.7) k/uL Sodium (137-145) mmol/L BUN (9-20) mg/dL Glucose (74-99) mg/dL POC Glucose (mg/dL) 212 H 175 H (75-99) mg/dL Delta Bilirubin (0.0-0.2) mg/dL AST (17-59) U/L ALT (21-72) U/L Alkaline Phosphatase (38-126) U/L Total Protein (6.3-8.2) g/dL Albumin (3.5-5.0) g/dL 05/22/19 05/22/19 Range/Units 04:23 06:41 WBC (3.8-10.6) k/uL RBC (4.30-5.90) m/uL Hgb (13.0-17.5) gm/dL Hct (39.0-53.0) % Neutrophils # (1.3-7.7) k/uL Sodium 135 L (137-145) mmol/L BUN 31 H (9-20) mg/dL Glucose 151 H (74-99) mg/dL POC Glucose (mg/dL) 132 H (75-99) mg/dL Delta Bilirubin 0.5 H (0.0-0.2) mg/dL AST 250 H (17-59) U/L ALT 418 H (21-72) U/L Alkaline Phosphatase 793 H (38-126) U/L Total Protein 4.4 L (6.3-8.2) g/dL Albumin 2.2 L (3.5-5.0) g/dL Assessment and Plan Assessment: Trending up liver enzymes, about fourfold increase. Rule out biliary obstruction versus other in view of his metastatic liver disease as per family Bilateral pneumonia, improving GI bleed, secondary to 3 cm antral ulcer Metastatic neuroendocrine cancer with chronic diarrhea History of chronic heart failure History of CVA/TIA Diabetes mellitus Hyperlipidemia Hypertension Liver disease Osteoarthritis Hepatitis when he was 18 years old History of coronary artery disease status post stent and pacemaker Plan: This is a pleasant 83 years old male who presents with multiple problems including metastatic neuroendocrine cancer, pneumonia and GI bleed. And now he has trending up liver enzymes. We will order a liver ultrasound in view of his metastatic liver disease and history of recent liver biopsy. Continue with antibiotics. Continue with Protonix which then we sprayed to oral pills. We'll ask for reconsultation GI. Labs and medication were reviewed.. Continue same treatment. Continue with symptomatic treatment. Resume home medication. Monitor lytes and vitals. DVT and GI prophylaxis. Further recommendations of the clinical course of the patient DVT prophylaxis: No heparin in view of GI bleed GI Prophylaxis: Protonix twice a day PT/OT recommended home versus home health care Prognosis is guarded Patient was then to be discharged home today, I explained for the patient and family at bedside he is not medically clear for discharge. Patient will need to monitor his liver enzymes and follow-up liver ultrasound and GI rest consult. Also will check PT and INR tomorrow
--- NOTE | 2019-05-22 16:14 | CDI ---
Documentation Clarification Form Date: 05/22/2019 2:58:07 PM From: Judit Castillo RN, CCDS Admit Date: 05/14/2019 2:40:00 PM Patient Name: Marvin Guan Visit Number: [id number] Discharge Date: ATTENTION: The Clinical Documentation Specialists (CDI) and [facility] Coding Staff appreciate your assistance in clarifying documentation. Please respond to the clarification below the line at the bottom and electronically sign. The CDI & [facility] Coding staff will review the response and follow-up if needed. Please note: Queries are made part of the Legal Health Record. If you have any questions, please contact the author of this message via ITS. Dr. Wilfred Schneider The patient presented on 05/14/19 with complaints of shortness of breath, wheezes, decreased breath sounds. History/Risk Factors: Congestive Heart Failure, Chronic Atrial Fibrillation, Cancer of the Liver and Pancreas. Diabetes Mellitus, hypertension, Neruoendocrine metastatic carcinoma, Current same day smoker Clinical Indicators: 83-year-old male who presented on 05/14/19 with complaints of Vital signs:05/14 @12:44 107/64 24 83 % RA 05/14 @13:00 109/70 25 91 % RA 05/14@16:00 120/56 111 18 91 % 2/L 05/15 20:00 149/74 70 18 93 % 4/L NC 05/17@07:04 98/41 21 91 % 2/L NC; 09:00 80/35 125 42 85 % Vent mask, transfer to ICU Lung/Breathing assessment: 05/17/19 Pulmonary consult (Dr. Schneider) Shortness of breath, diminished breath sounds at the bases, minimal crackles at the bases, rhonchi on forced expiratory maneuver. Neurological: restless agitated, and bit confused, tries to avoid answering questions Chest x-ray: 05/17/19 Bibasilar atelectasis questionable infiltrates and small pleural effusions. The findings are basically chronic) 05/17/19 Attending (Dr. Yates) Patient started having abdominal discomfort and had coffee-ground emesis. Moved to the ICU. NG tube was placed. Hemoglobin also dropped 8.3 @ 08:00 on 05/15/19 . 102/60 91 25 97.7 89 % RA Treatment: Breathing tx Bronchodilators Monitor O2 Sat's (titrate) Lasix IV Solu-medrol IV (taper) Azteonam IV In your professional opinion, can you please clarify if these findings signify one of the following conditions? Acute Respiratory Failure Acute on Chronic Respiratory Failure Chronic Respiratory Failure Acute Respiratory Distress Acute Respiratory Insufficiency Other Diagnosis, please specify Unable to determine Specificity: If known, further specify (if known): With hypercapnia? (pCO2 >50 and pH <7.35) With hypoxia? (pO2 <60 mm Hg or SpO2 <91% on room air) (Last Query Form Revision: February 2019) MTDD
[2019-05-22 16:45] LABS: Glucose,Whole Blood 131 mg/dL (75-99)
[2019-05-22] MEDS: PANTOPRAZOLE 40 MG TABLET PO SCH (18:47)
--- NOTE | 2019-05-22 19:30 | US ---
EXAMINATION TYPE: US liver DATE OF EXAM: 05/22/2019 COMPARISON: Liver Biopsy CLINICAL HISTORY: elevated liver enzymes. Elevated liver enzymes per order. Hx liver biopsy. Hx kidne y stone, HTN, Hyperlipidemia. EXAM MEASUREMENTS: Exam is limited due to gas. Liver Length: 20.42 cm Gallbladder Wall: 0.37 cm CBD: 1.20 cm Right Kidney: 10.6 x 4.7 x 5.5 cm Pancreas: Limited due to gas. Not well seen. There appears to be a hypoechoic area in what appears t o be pancreatic tissue?. This hypoechoic area measures: 1.8 x 1.4 x 1.8 cm. Liver: Very limited due to heterogeneous echotexture and gas. Cannot definitely correlate areas eliezer ured with area previously biopsied. Isoechoic, indistinct area seen measurin.7 x 2.4 x 2.9 cm. A second isoechoic area seen measurin.6 x 3.6 x 3.2 cm. Hyperechoic, indistinct area seen measuring : 2.7 x 3.3 x 2.7 cm. Hypoechoic area seen measurin.3 x 3.8 x 1.6 cm. Gallbladder: Appears distended measuring 11.6 cm in length. Hyperechoic debris seen within the gallb ladder. Evidence for sonographic Sewell's sign: No CBD: Appears to be dilated. Right Kidney: Anechoic area seen laterally measurin.8 x 0.8 x 0.7 cm. Cortex appears thin. IMPRESSION: Possible pancreatic mass. 3.5 cm rounded mass in the liver. Follow-up recommended. CT scan would be h elpful for further evaluation. mildly dilated gallbladder with debris and gallstones. Gallbladder measures up to 4.5 cm in diameter .
[2019-05-22 20:21] LABS: Glucose,Whole Blood 122 mg/dL (75-99)
[2019-05-22] MEDS: ATORVASTATIN 20 MG TAB PO SCH (20:29)
--- NOTE | 2019-05-22 21:04 | P.PN ---
Progress Note - Text Progress Note Date: 05/22/19 patient had acute hypoxic respiratory failure multifactorial ,secondary to acute diastolic chf,acute exacerbation of copd ,and acute anemia secondary to acute upper gi bleeding.
[2019-05-23] MEDS: ONDANSETRON 4 MG/2 ML VIAL IVP PRN ×3 (00:26→17:18)
[2019-05-23 04:27] LABS: Basophils % (A) 0 %; Eosinophils % (A) 0 %; HCT 31.4 % (39.0-53.0); HGB 10.7 gm/dL (13.0-17.5); Lymphocytes # (A) 0.9 k/uL (1.0-4.8); Lymphocytes % (A) 4 %; MCV 100.1 fL (80.0-100.0); Macrocytosis Slight; Mean Platelet Volume 7.2; Monocytes # (A) 0.8 k/uL (0-1.0); Monocytes % (A) 3 %; Neutrophils # (A) 20.3 k/uL (1.3-7.7); Neutrophils % (A) 92 %; Platelet Count 435 k/uL (150-450); RBC 3.14 m/uL (4.30-5.90); RDW 14.7 % (11.5-15.5); WBC 22.1 k/uL (3.8-10.6)
[2019-05-23 04:36] LABS: Albumin 2.4 g/dL (3.5-5.0); Calcium 8.9 mg/dL (8.4-10.2); Potassium 4.5 mmol/L (3.5-5.1); Total Bilirubin 1.7 mg/dL (0.2-1.3); Total Protein 4.8 g/dL (6.3-8.2)
[2019-05-23 04:40] LABS: Prothrombin Time 10.6 sec (9.0-12.0)
[2019-05-23 04:44] LABS: Partial Thromboplastin Time 20.7 sec (22.0-30.0)
[2019-05-23 06:43] LABS: Glucose,Whole Blood 139 mg/dL (75-99)
[2019-05-23] MEDS: INSULIN ASPART (NovoLOG) 100 UNIT/ML VIAL SQ SCH ×4 (06:58→20:47)
[2019-05-23] MEDS: PANTOPRAZOLE 40 MG TABLET PO SCH ×2 (07:01→17:13)
[2019-05-23] MEDS: CALCIUM CARBONATE LIQUID 500 MG/5 ML CUP PO SCH ×3 (07:01→17:13)
[2019-05-23] MEDS: IPRATROPIUM-ALBUTEROL 3 ML NEB INHALATION SCH ×3 (07:14→19:09)
[2019-05-23] MEDS: BUDESONIDE 1 MG/2 ML NEBU INHALATION SCH ×2 (07:14→19:09)
[2019-05-23] MEDS: AZTREONAM 2 GM in SODIUM CHLORIDE 0.9% 100 ML IVPB SCH (09:50)
[2019-05-23] MEDS: FUROSEMIDE 10 MG/ML 2 ML VIAL IV SCH (09:52)
[2019-05-23] MEDS: methylPREDNISolone SOD SUCCI 40 MG/ML 1 ML VIAL IV SCH ×2 (09:53→21:28)
[2019-05-23] MEDS: POTASSIUM CHLORIDE ER 20 MEQ TAB.ER PO SCH (09:54)
[2019-05-23] MEDS: MULTIVITAMINS, THERA 1 EACH TAB PO SCH (09:54)
[2019-05-23] MEDS: METOPROLOL TARTRATE 25 MG TAB PO SCH ×2 (09:54→21:28)
[2019-05-23] MEDS: VIT A,C & E-LUTEIN-MINERALS 1 EACH TAB PO SCH ×2 (09:55→21:28)
[2019-05-23 11:45] LABS: Glucose,Whole Blood 77 mg/dL (75-99)
[2019-05-23] MEDS: SODIUM CHLORIDE 0.9% 1,000 ML IV SCH (14:35)
[2019-05-23 16:56] LABS: Glucose,Whole Blood 73 mg/dL (75-99)
[2019-05-23 20:40] LABS: Glucose,Whole Blood 44 mg/dL (75-99)
[2019-05-23 20:40] LABS: Glucose,Whole Blood 44 mg/dL (75-99)
[2019-05-23 20:59] LABS: Glucose,Whole Blood 47 mg/dL (75-99)
[2019-05-23 21:25] LABS: Glucose,Whole Blood 42 mg/dL (75-99)
--- NOTE | 2019-05-23 21:27 | P.PN ---
Progress Note - Text Progress Note Date: 05/23/19 Chief Complaint: Shortness of breath congested Interval history: This is a pleasant 83-year-old patient of Dr. Vic Hilario. Chronic stable medical conditions include diabetes mellitus type 2, hyperlipidemia, hypertension, osteoarthritis. Patient is foldable liver mass and recently a liver biopsy done. But his come back showing metastatic neuroendocrine carcinoma. Patient presented with noted below symptoms. Congested in the chest. Short of breath and wheezing. Patient has a long-standing watery diarrhea. Some abdominal pain. Patient has been followed by oncology and GI. Patient is . Has been getting weak and tired. Using a walker. Appetite is gone down. No fever no chills. Wheezing is present. Patient has been smoking for many years. The down to a few cigarettes a day. 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 Started on Sandostatin. Responded well. On 05/17/2019 patient started having coffee-ground emesis was moved to the ICU. Anticoagulation was held. Received 2 units of blood. NG tube was placed. Also had dark stools. EGD showed-gastric ulcer, duodenal ulcer, severe esophagitis. Patient is started to better. On May 22 patient's LFTs started going up. Today-in ICU. Not feeling well. LFTs are gone up further. Feeling weak and tired. Jaundice. and daughter by the bedside. Rather tired. Nauseated. Review of systems: Was done for constitutional, cardiovascular, GI, pulmonary. relevant finding as above Active Medications Albuterol/Ipratropium (Duoneb 0.5 Mg-3 Mg/3 Ml Soln) 3 ml INHALATION TID [facility] Last Admin: 05/23/19 19:09 Dose: 3 ml Documented by: Budesonide (Pulmicort) 1 mg INHALATION RT-BID [facility] Last Admin: 05/23/19 19:09 Dose: 1 mg Documented by: Calcium Carbonate/Glycine (Tums Liquid) 500 mg PO TID-W/MEALS [facility] Last Admin: 05/23/19 17:13 Dose: Not Given Documented by: Furosemide (Lasix) 20 mg IV DAILY [facility] Last Admin: 05/23/19 09:52 Dose: 20 mg Documented by: Sodium Chloride (Saline 0.9%) 1,000 mls @ 100 mls/hr IV .Q10H [facility] Last Admin: 05/23/19 14:35 Dose: 100 mls/hr Documented by: Insulin Aspart (Novolog) 0 unit SQ [facility]; Protocol Last Admin: 05/23/19 20:47 Dose: Not Given Documented by: Methylprednisolone Sodium Succinate (Solu-Medrol) 20 mg IV Q12HR [facility] Last Admin: 05/23/19 09:53 Dose: 20 mg Documented by: Metoprolol Tartrate (Lopressor) 25 mg PO BID [facility] Last Admin: 05/23/19 09:54 Dose: 25 mg Documented by: Multivitamins (Theragran) 1 each PO DAILY [facility] Last Admin: 05/23/19 09:54 Dose: 1 each Documented by: Multivitamins/Minerals (Ivite) 1 each PO BID [facility] Last Admin: 05/23/19 09:55 Dose: 1 each Documented by: Nitroglycerin (Nitrostat) 0.4 mg SUBLINGUAL Q5M PRN PRN Reason: Chest Pain Creon Dr (Lipase/Protease/Amylase) 24 ,000 Units Capsule 3 cap PO [facility] Last Admin: 05/23/19 20:49 Dose: Not Given Documented by: Ondansetron HCl (Zofran) 8 mg PO Q8H PRN PRN Reason: Nausea Last Admin: 05/16/19 22:23 Dose: 8 mg Documented by: Ondansetron HCl (Zofran) 4 mg IVP Q6HR PRN PRN Reason: Nausea And Vomiting Last Admin: 05/23/19 17:18 Dose: 4 mg Documented by: Pantoprazole Sodium (Protonix) 40 mg PO AC-BID [facility] Last Admin: 05/23/19 17:13 Dose: Not Given Documented by: Potassium Chloride (K-Dur 20) 20 meq PO DAILY [facility] Last Admin: 05/23/19 09:54 Dose: 20 meq Documented by: Physical examination: VITAL SIGNS: 97, 89, 18, 148/81, [place] percent on 2 L GENERAL: Propped up in bed, tired appearing, EYES: Pupils equal. Conjunctiva icterus HEENT: External appearance of nose and ears normal, oral cavity grossly normal. NECK: JVD unable to assess masses not palpable. HEART: Heart sounds irregular, no edema. LUNGS: Respiratory rate increased, decreased breath sounds ABDOMEN: Soft, mild midabdominal tenderness, no guarding or rigidity, liver spleen not palpable, no masses palpable. PSYCH: Alert and oriented x3; mood and affect tired INVESTIGATIONS, reviewed in the clinical context: White count 22.1 hemoglobin 10.7 platelets 435 pressure 4.5 creatinine 0.91 total bilirubin 1.7 AST 694 ALT 733 alkaline phosphatase 1254 albumin 2.4 Previous testing White count 16.4 hemoglobin 15.1 potassium 2.9 bun 57 creatinine 1.36 AST 60 02/20/2084 alk phos 416 proBNP 3260 albumin 2.8 EKG tracing personally reviewed by me-atrial fibrillation rate around 1:15 Chest x-ray film personally reviewed by me-some cardiomegaly, venous prominence, left pleural effusion liver mass biopsy showing metastatic neuroendocrine carcinoma Patient's creatinine was 0.76 in September of this year. 2-D echo-concentric left medical hypertrophy, EF 45-50% hypokinetic [place]. Assessment: -This is a patient has long-standing diarrhea abdominal pain, some respiratory symptoms with liver biopsy showing metastatic neuroendocrine carcinoma. - Possible carcinoid. Has responded well to Sandostatin. Diarrhea resolved. -Acute upper GI bleed, - on anticoagulation-now held -EGD shows-gastric ulcer, duodenal ulcer, severe esophagitis -Acute blood loss anemia, symptomatic, received 2 units of blood -Acute COPD exacerbation in a current smoker, much improved -Chronic nicotine dependence patient cigarette smoker -acute on chronic congestive heart failure, from systolic and diastolic dysfunction from underlying coronary artery disease, uncontrolled -Persistent atrial flutter fibrillation -Chronic Coumadin monitoring -Hyperlipidemia -Essential hypertension -Diabetes mellitus type 2 on oral hypoglycemic - acute kidney injury likely secondary to prerenal from persistent diarrhea decreased oral intake, improved -Coronary artery disease, with stent -Acute hepatitis, with a possible intrahepatic obstructive picture/cholestatic. Note that Aztreonam could contributing same and also patient was on Lipitor. . Plan: Stopped patient aztreonam and also Lipitor. Expect LFTs to start coming down in a couple of days had lengthy talk with patient's and daughter. Did explain that cannot ignore patient's multiple comorbidities. They have a good understanding of the same. Total time spent today was about 45 minutes with over 25 minutes of discussion. Data the nurse called me that the patient decided to go home tomorrow with hospice. Which is very reasonable. I did also the nurse to contact the hospice and make arrangements for patient to be discharged tomorrow to home.
[2019-05-23] MEDS ORDERED: DEXTROSE 10 % IN WATER 250 ML IV ONE (21:30)
[2019-05-23 21:48] LABS: Glucose,Whole Blood 84 mg/dL (75-99)
[2019-05-23 22:49] LABS: Glucose,Whole Blood 103 mg/dL (75-99)
[2019-05-24 01:56] LABS: Glucose,Whole Blood 75 mg/dL (75-99)
[2019-05-24 03:43] LABS: Glucose,Whole Blood 63 mg/dL (75-99)
[2019-05-24] MEDS: SODIUM CHLORIDE 0.9% 1,000 ML IV SCH (03:47)
[2019-05-24] MEDS ORDERED: DEXTROSE 5% IN WATER 1,000 ML IV ONE (03:52)
[2019-05-24] MEDS ORDERED: DEXTROSE 5%-0.9% NACL 1,000 ML IV SCH (04:00)
[2019-05-24] MEDS: ONDANSETRON 4 MG/2 ML VIAL IVP PRN ×2 (04:39→10:13)
[2019-05-24 06:34] LABS: Glucose,Whole Blood 71 mg/dL (75-99)
[2019-05-24] MEDS: CALCIUM CARBONATE LIQUID 500 MG/5 ML CUP PO SCH (06:34)
[2019-05-24] MEDS: PANTOPRAZOLE 40 MG TABLET PO SCH (06:34)
[2019-05-24] MEDS: INSULIN ASPART (NovoLOG) 100 UNIT/ML VIAL SQ SCH (06:34)
[2019-05-24] MEDS: IPRATROPIUM-ALBUTEROL 3 ML NEB INHALATION SCH (07:37)
[2019-05-24] MEDS: BUDESONIDE 1 MG/2 ML NEBU INHALATION SCH (07:37)
[2019-05-24 09:41] VITALS: RESP 18; TEMP 98
[2019-05-24] MEDS: MULTIVITAMINS, THERA 1 EACH TAB PO SCH (10:02)
[2019-05-24] MEDS: POTASSIUM CHLORIDE ER 20 MEQ TAB.ER PO SCH (10:02)
[2019-05-24] MEDS: VIT A,C & E-LUTEIN-MINERALS 1 EACH TAB PO SCH (10:03)
[2019-05-24 10:07] VITALS: BP 143/72; PULSE 96
[2019-05-24] MEDS: methylPREDNISolone SOD SUCCI 40 MG/ML 1 ML VIAL IV SCH (10:16)
[2019-05-24] MEDS: METOPROLOL TARTRATE 25 MG TAB PO SCH (10:16)
[2019-05-24] MEDS: FUROSEMIDE 10 MG/ML 2 ML VIAL IV SCH (10:16)
[2019-05-24 10:30] LABS: ALT 786 U/L (21-72); AST 592 U/L (17-59); African American GFR (CKD) >90 (>60 ml/min/1.73 sqM); Albumin 2.5 g/dL (3.5-5.0); Alkaline Phosphatase 1144 U/L (38-126); Anion Gap 4 mmol/L; Blood Urea Nitrogen 25 mg/dL (9-20); Calcium 9.1 mg/dL (8.4-10.2); Carbon Dioxide 33 mmol/L (22-30); Chloride 104 mmol/L (98-107); Non-African American GFR(CKD) 81 (>60 ml/min/1.73 sqM); Potassium 4.2 mmol/L (3.5-5.1); Sodium 141 mmol/L (137-145); Total Bilirubin 0.9 mg/dL (0.2-1.3)
[2019-05-24 10:47] LABS: Glucose 45 mg/dL (74-99)
== END 2019-05-24 10:19 | disposition hospice, inpatient (51) | DRG 190 ==
LOC: EC 12:37 → 3SCARD 14:40 → 2SICU 05-17 02:13
PROVIDERS: ADMIT Hospitalist; ATTEND Hospitalist
PROC: 30233N1 Transfusion of Nonautologous Red Blood Cells into Peripheral Vein, Percutaneous Approach (ICD-10-PCS; 2019-05-17)
PROC: 0DB78ZX Excision of Stomach, Pylorus, Via Natural or Artificial Opening Endoscopic, Diagnostic (ICD-10-PCS; principal; 2019-05-18 07:30)
DX: J44.1 Chronic obstructive pulmonary disease with (acute) exacerbation (principal); I50.43 Acute on chronic combined systolic (congestive) and diastolic (congestive) heart failure; J96.01 Acute respiratory failure with hypoxia; R57.1 Hypovolemic shock; J15.6 Pneumonia due to other Gram-negative bacteria; N17.0 Acute kidney failure with tubular necrosis; K29.71 Gastritis, unspecified, with bleeding; K26.4 Chronic or unspecified duodenal ulcer with hemorrhage; K25.4 Chronic or unspecified gastric ulcer with hemorrhage; C25.9 Malignant neoplasm of pancreas, unspecified; D62 Acute posthemorrhagic anemia; I42.9 Cardiomyopathy, unspecified; I48.19 Other persistent atrial fibrillation; I48.92 Unspecified atrial flutter; C78.7 Secondary malignant neoplasm of liver and intrahepatic bile duct; J44.0 Chronic obstructive pulmonary disease with (acute) lower respiratory infection; E11.51 Type 2 diabetes mellitus with diabetic peripheral angiopathy without gangrene; E78.5 Hyperlipidemia, unspecified; E87.6 Hypokalemia; F17.210 Nicotine dependence, cigarettes, uncomplicated; I11.0 Hypertensive heart disease with heart failure; I25.10 Atherosclerotic heart disease of native coronary artery without angina pectoris; K21.0 Gastro-esophageal reflux disease with esophagitis; K52.9 Noninfective gastroenteritis and colitis, unspecified; M19.90 Unspecified osteoarthritis, unspecified site; K75.89 Other specified inflammatory liver diseases; K86.89 Other specified diseases of pancreas; Z66 Do not resuscitate; Z79.01 Long term (current) use of anticoagulants; Z79.84 Long term (current) use of oral hypoglycemic drugs; Z79.899 Other long term (current) drug therapy; Z88.1 Allergy status to other antibiotic agents; Z88.2 Allergy status to sulfonamides; Z88.8 Allergy status to other drugs, medicaments and biological substances; Z95.5 Presence of coronary angioplasty implant and graft; Z95.0 Presence of cardiac pacemaker; Z90.79 Acquired absence of other genital organ(s); Z86.73 Personal history of transient ischemic attack (TIA), and cerebral infarction without residual deficits; Z80.0 Family history of malignant neoplasm of digestive organs; Z82.5 Family history of asthma and other chronic lower respiratory diseases; Z83.3 Family history of diabetes mellitus
CPT/HCPCS: 36415; 43239; 71045; 71046; 76705; 80048; 80053; 80076; 81003; 82550; 83735; 83880; 84484; 85025; 85027; 85610; 85730; 86850; 86900; 86901; 86920; 87040; 88305; 93005; 93306; 94640; 94760; 96361; 96374; 99285

== ENCOUNTER 2019-05-24 10:04 | Inpatient (IN) | payer MEDICAID ==
[2019-05-24] MEDS ORDERED: GLYCOPYRROLATE 0.2 MG/ML 2 ML VIAL IVP PRN (10:14)
[2019-05-24] MEDS ORDERED: LORazepam 2 MG/ML INJ IV PRN (10:14)
[2019-05-24] MEDS ORDERED: ATROPINE OPHTH SOLN 1% 5ML BTL SUBLINGUAL PRN (10:14)
[2019-05-24] MEDS ORDERED: ACETAMINOPHEN SUPPOSITORY 650 MG SUPP RECTAL PRN (10:14)
[2019-05-24] MEDS ORDERED: ONDANSETRON 4 MG/2 ML VIAL IVP PRN (10:14)
[2019-05-24] MEDS: MORPHINE SULFATE 2 MG/ML SYRINGE IV PRN ×4 (10:33→11:23)
[2019-05-24] MEDS ORDERED: LORazepam 2 MG/ML INJ IM STA (11:10)
[2019-05-24] MEDS ORDERED: LORazepam 2 MG/ML INJ IV STA (11:21)
[2019-05-24] MEDS: MORPHINE SULFATE (100 MG/2 ML) 100 MG in SODIUM CHLORIDE 0.9% 100 ML IV SCH ×2 (11:40→18:23)
[2019-05-24 16:56] VITALS: BP 71/50; PULSE 149; RESP 11
--- NOTE | 2019-05-29 05:24 | DS ---
DISCHARGE SUMMARY DATE OF ADMISSION: 05/24/2019 DATE PATIENT : 05/24/2019 CAUSE OF : Metastatic neuroendocrine carcinoma. Other medical conditions include coronary artery disease. HOSPITAL COURSE: This patient admitted to hospice for GIP, uncontrolled symptoms. Put on comfort care measures. Patient succumbed to underlying condition. Family was present. [id number] / IJSesar: [id number] /
== END 2019-05-24 21:51 | disposition expired | DRG 951 ==
LOC: 2SICU 10:22
PROVIDERS: ADMIT Hospitalist; ATTEND Hospitalist
DX: Z51.5 Encounter for palliative care (principal); C7B.8 Other secondary neuroendocrine tumors; J44.1 Chronic obstructive pulmonary disease with (acute) exacerbation; I48.19 Other persistent atrial fibrillation; N17.9 Acute kidney failure, unspecified; I25.10 Atherosclerotic heart disease of native coronary artery without angina pectoris; E11.9 Type 2 diabetes mellitus without complications; E78.5 Hyperlipidemia, unspecified; M19.90 Unspecified osteoarthritis, unspecified site; I11.0 Hypertensive heart disease with heart failure; I50.9 Heart failure, unspecified; Z95.5 Presence of coronary angioplasty implant and graft; F17.210 Nicotine dependence, cigarettes, uncomplicated; Z95.0 Presence of cardiac pacemaker; Z86.73 Personal history of transient ischemic attack (TIA), and cerebral infarction without residual deficits; Z79.01 Long term (current) use of anticoagulants; Z79.899 Other long term (current) drug therapy